=== PATIENT | male | born 1960 | race American Indian/Alaskan Native ===

== ENCOUNTER 2016-11-07 18:41 | Emergency (ER) | payer SELFPAY ==
[2016-11-07 19:08] VITALS: BP 149/86
[2016-11-07 20:03] LABS: Basophils % (Auto) 0.6 % (0.0-1.8); Eosinophils % (Auto) 1.5 % (0.0-4.3); Hematocrit 42.5 % (35.5-45.6); Hemoglobin 13.9 gm/dl (11.8-15.2); Mean Corpuscular HGB Conc 33 % (32-34); Mean Corpuscular Hemoglobin 28 pg (28-32); Mean Corpuscular Volume 85 fl (84-94); Platelet Count 230 K/mm3 (140-440); Red Blood Count 5.02 M/mm3 (3.65-5.03); Red Cell Distribution Width 14.5 % (13.2-15.2); White Blood Count 7.7 K/mm3 (4.5-11.0)
[2016-11-07 20:04] LABS: Anion Gap 18 mmol/L; Blood Urea Nitrogen 22 mg/dL (9-20); Calcium 9.4 mg/dL (8.4-10.2); Carbon Dioxide 26 mmol/L (22-30); Chloride 101.8 mmol/L (98-107); Glucose 121 mg/dL (75-100); Potassium 3.4 mmol/L (3.6-5.0); Sodium 142 mmol/L (137-145)
--- NOTE | 2016-11-08 08:37 | XRay Report ---
Chest 2 views. Findings: The heart and lungs reveal no acute or significant abnormalities.
== END 2016-11-08 01:25 | disposition left against medical advice (07) ==
LOC: ED 18:41
DX: R07.89 Other chest pain (principal); R53.1 Weakness; Z53.21 Procedure and treatment not carried out due to patient leaving prior to being seen by health care provider
CPT/HCPCS: 36415; 71020; 80048; 84484; 85025; 93005; 93010

== ENCOUNTER 2017-02-18 07:13 | Emergency (ER) | payer OTHER ==
[2017-02-18] MEDS ORDERED: NORMODYNE IV ONE (08:06)
[2017-02-18] MEDS ORDERED: NITRO-BID 2% TP ONE (08:06)
--- NOTE | 2017-02-18 08:06 | Emergency Department Report ---
ED General Adult HPI - General Chief complaint: Chest Pain Stated complaint: SOB Time Seen by Provider: 02/18/17 08:02 Source: patient Mode of arrival: Ambulatory Limitations: No Limitations - History of Present Illness Initial comments: Patient arrived at triage stating that he was having substernal chest pain or shortness of breath for the last 3 days. He states that about 45 minutes prior to arrival he felt like he was having a heart attack per the triage note. The note states that there was nausea and sweating. The patient denies any sweating. He states that the pain lasted for less than 45 minutes. On arrival the patient's blood pressure was 190/130. At the time of my encounter it was about 160/100 and had not yet been treated. Patient denies any substance abuse. In 2014 the patient was admitted to facility under similar circumstances. He had a nuclear perfusion test at that time which showed a dilated cardiomyopathy. Patient admits to noncompliance with his blood pressure medication and follow-up. He states he was admitted here a year ago but perhaps that was actually another hospital. He admits to being somewhat recurrently noncompliant. -: days(s) Location: chest Radiation: non-radiation Quality: dull Consistency: now resolved Improves with: none Worsens with: none Associated Symptoms: shortness of breath Treatments Prior to Arrival: none - Related Data Previous Rx's Medication Instructions Recorded Last Taken Type Labetalol [Normodyne TAB] 100 mg PO BID #60 tablet 02/18/17 Unknown Rx Lisinopril/Hydrochlorothiazide 1 tab PO QDAY #30 tablet 02/18/17 Unknown Rx [Zestoretic 10-12.5 mg] Allergies Allergy/AdvReac Type Severity Reaction Status Date / Time No Known Allergies Allergy Verified 11/23/14 16:49 ED Review of Systems ROS: Stated complaint: SOB Other details as noted in HPI Constitutional: denies: chills, fever Eyes: denies: eye pain, eye discharge, vision change ENT: denies: ear pain, throat pain Respiratory: SOB with exertion. denies: cough, orthopnea, shortness of breath, SOB at rest, wheezing Cardiovascular: as per HPI, chest pain. denies: palpitations Endocrine: no symptoms reported Gastrointestinal: denies: abdominal pain, nausea, diarrhea Genitourinary: denies: urgency, dysuria Musculoskeletal: denies: back pain, joint swelling, arthralgia Skin: denies: rash, lesions Neurological: denies: headache, weakness, paresthesias Psychiatric: denies: anxiety, depression Hematological/Lymphatic: denies: easy bleeding, easy bruising ED Past Medical Hx - Past Medical History Hx Hypertension: Yes Hx Heart Attack/AMI: Yes Hx Congestive Heart Failure: No Hx Diabetes: No Hx GERD: Yes Hx Asthma: Yes Hx COPD: No - Surgical History Hx Coronary Stent: Yes - Social History Smoking Status: Never Smoker Substance Use Type: None, Alcohol - Medications Home Medications: Home Medications Medication Instructions Recorded Confirmed Last Taken Type Labetalol [Normodyne TAB] 100 mg PO BID #60 tablet 02/18/17 Unknown Rx Lisinopril/Hydrochlorothiazide 1 tab PO QDAY #30 tablet 02/18/17 Unknown Rx [Zestoretic 10-12.5 mg] ED Physical Exam - General Limitations: No Limitations General appearance: alert, in no apparent distress - Head Head exam: Present: atraumatic, normocephalic - Eye Eye exam: Present: normal appearance. Absent: scleral icterus - ENT ENT exam: Present: mucous membranes moist - Neck Neck exam: Present: normal inspection - Respiratory Respiratory exam: Present: normal lung sounds bilaterally. Absent: respiratory distress - Cardiovascular Cardiovascular Exam: Present: regular rate, normal rhythm. Absent: systolic murmur, diastolic murmur, rubs, gallop - GI/Abdominal GI/Abdominal exam: Present: soft, normal bowel sounds. Absent: distended, tenderness, guarding, rebound, rigid - Rectal Rectal exam: Present: deferred - Extremities Exam Extremities exam: Present: normal inspection - Back Exam Back exam: Present: normal inspection - Neurological Exam Neurological exam: Present: alert, oriented X3, CN II-XII intact. Absent: motor sensory deficit - Psychiatric Psychiatric exam: Present: normal affect, normal mood - Skin Skin exam: Present: warm, dry, intact, normal color. Absent: rash ED Course Vital Signs 02/18/17 02/18/17 02/18/17 07:25 09:03 09:04 Temperature 98.1 F Pulse Rate 86 77 Respiratory 22 16 Rate Blood Pressure 191/131 167/108 Blood Pressure 167/108 [Left] O2 Sat by Pulse 97 99 Oximetry 02/18/17 09:06 Temperature Pulse Rate Respiratory 16 Rate Blood Pressure Blood Pressure [Left] O2 Sat by Pulse 99 Oximetry - Reevaluation(s) Reevaluation #1: I questioned the patient about the possibility of cocaine abuse. He continues to deny this. I informed of the has an elevated CK level which may be associated with cocaine use. He stated this was not the case. I went over his history as he stated with him as he somewhat minimized stated to me. I told him that certainly we would admit him to the hospital if he felt like he was having a heart attack. He stated that he just needs medicine for his hypertension and he has no persistent chest pain. I explained to him that he would have to sign out AGAINST MEDICAL ADVICE as there could be risk of and hospitalization was indicated for further care and stabilization. He is mentally competent to decline. He did understand the risks of discharge and benefits of hospitalization. 02/18/17 10:04 02/18/17 10:07 I encouraged the patient to await for a second troponin. We will see if he will do so. ED Medical Decision Making - Lab Data Result diagrams: 02/18/17 08:01 02/18/17 08:01 Laboratory Results - last 24 hr 02/18/17 02/18/17 02/18/17 08:01 08:01 08:01 WBC 6.0 RBC 4.85 Hgb 13.6 Hct 41.7 MCV 86 MCH 28 MCHC 33 RDW 15.0 Plt Count 200 Lymph % (Auto) 31.4 [place] % (Auto) 8.6 H Eos % (Auto) 1.3 Baso % (Auto) 0.8 Lymph # 1.9 [place] # 0.5 Eos # 0.1 Baso # 0.1 Seg Neutrophils % 57.9 Seg Neutrophils # 3.5 Sodium 146 H Potassium 4.2 Chloride 106.6 Carbon Dioxide 27 Anion Gap 17 BUN 14 Creatinine 1.2 Estimated GFR > 60 BUN/Creatinine Ratio 11.66 Glucose 104 H Calcium 9.2 Total Creatine Kinase 723 H CK-MB (CK-2) 6.3 H CK-MB (CK-2) Rel Index 0.8 Troponin T 0.027 - EKG Data -: EKG Interpreted by Me EKG shows normal: sinus rhythm, intervals - EKG Data Interpretation: LVH, other (left axis deviation and left atrial abnormality associated strain pattern EKG highly consistent with LVH no evidence of acute ischemia.) - Radiology Data interpreted by me: Chest x-ray suggested the possibility of early CHF Critical care attestation.: If time is entered above; I have spent that time in minutes in the direct care of this critically ill patient, excluding procedure time. ED Disposition Clinical Impression: Uncontrolled hypertension HTN (hypertension) Qualifiers: Hypertension type: essential hypertension Qualified Code(s): I10 - Essential ( primary) hypertension Rhabdomyolysis Qualifiers: Rhabdomyolysis type: non-traumatic Qualified Code(s): M62.82 - Rhabdomyolysis Disposition: LEFT AGAINST MED ADVICE Is pt being admited?: No Does the pt Need Aspirin: No Condition: Stable Instructions: Hypertension (ED), Chest Pain (ED) Additional Instructions: Return as desired for further care and evaluation. I strongly recommended he see a primary care doctor as soon as possible/investment analyst. Given the appropriate referrals. Rx as directed. Blood pressure management requires follow-up in your case within the next few days. You should check your blood pressure at a supermarket or a pharmacy daily. Prescriptions: Labetalol [Normodyne TAB] 100 mg PO BID #60 tablet Lisinopril/Hydrochlorothiazide [Zestoretic 10-12.5 mg] 1 tab PO QDAY #30 tablet Referrals: PRIMARY CAREMD [Primary Care Provider] - 3-5 Days FRANCES DAILY MD [Staff Physician] - 3-5 Days ANNETTE MAY MD [Staff Physician] - 3-5 Days [facility] [Provider Group] - 3-5 Days Forms: AMA Form Time of Disposition: 11:31
[2017-02-18 08:14] LABS: Basophils % (Auto) 0.8 % (0.0-1.8); Eosinophils % (Auto) 1.3 % (0.0-4.3); Hematocrit 41.7 % (35.5-45.6); Hemoglobin 13.6 gm/dl (11.8-15.2); Mean Corpuscular HGB Conc 33 % (32-34); Mean Corpuscular Hemoglobin 28 pg (28-32); Mean Corpuscular Volume 86 fl (84-94); Platelet Count 200 K/mm3 (140-440); Red Blood Count 4.85 M/mm3 (3.65-5.03)
[2017-02-18 08:29] LABS: Anion Gap 17 mmol/L; BUN/Creatinine Ratio 11.66; Blood Urea Nitrogen 14 mg/dL (9-20); Calcium 9.2 mg/dL (8.4-10.2); Carbon Dioxide 27 mmol/L (22-30); Chloride 106.6 mmol/L (98-107); Creatine Kinase MB 6.3 ng/mL (0.0-4.0); Glucose 104 mg/dL (75-100); Potassium 4.2 mmol/L (3.6-5.0); Sodium 146 mmol/L (137-145)
[2017-02-18 10:08] LABS: Urine Drugs of Abuse Note Disclamer
--- NOTE | 2017-02-18 10:37 | XRay Report ---
FINAL REPORT EXAM: XR CHEST 1V AP HISTORY: Chest Pain TECHNIQUE: Chest, portable semi upright PRIORS: None. FINDINGS: There is borderline cardiomegaly. There is no congestion, infiltrate or pleural effusion seen. There is no pneumothorax. IMPRESSION: There is no acute abnormality identified.
[2017-02-18 11:47] VITALS: BP 156/99
== END 2017-02-18 11:46 | disposition left against medical advice (07) ==
LOC: ED 07:13
DX: I10 Essential (primary) hypertension (principal); M62.82 Rhabdomyolysis; I25.2 Old myocardial infarction; J45.909 Unspecified asthma, uncomplicated; Z95.818 Presence of other cardiac implants and grafts
CPT/HCPCS: 36415; 71010; 80048; 80307; 82550; 82553; 84484; 85025; 93005; 93010

== ENCOUNTER 2018-11-12 00:19 | Emergency (ER) | payer SELFPAY ==
[2018-11-12] MEDS ORDERED: DUONEB *Not for PRN Use IH ONE (00:25)
[2018-11-12] MEDS ORDERED: PROVENTIL IH ONE (00:39)
[2018-11-12] MEDS ORDERED: ATROVENT IH ONE (00:39)
[2018-11-12] MEDS ORDERED: DELTASONE PO ONE (00:39)
[2018-11-12] MEDS ORDERED: TESSALON PERLES PO ONE (00:40)
--- NOTE | 2018-11-12 00:45 | Emergency Department Report ---
- General Chief Complaint: Dyspnea/Respdistress Stated Complaint: JALIL/COUGH Time Seen by Provider: 11/12/18 00:36 Source: patient Mode of arrival: Ambulatory Limitations: No Limitations - History of Present Illness MD Complaint: cough -: days(s) (1) Severity: severe Severity scale (0 -10): 3 Consistency: constant Improves With: nothing Worsens With: nothing Associated Symptoms: cough (dry), shortness of breath. denies: fever, chills, diaphoresis, headache, nasal congestion, stiff neck, chest pain, abdominal pain, nausea, vomiting, diarrhea, confusion, right sweats, weight loss, epistaxis - Related Data Home Medications Medication Instructions Recorded Confirmed Last Taken Furosemide [Lasix] 20 mg PO DAILY 11/12/18 11/12/18 11/12/18 Previous Rx's Medication Instructions Recorded Last Taken Type ALBUTEROL Inhaler(NF) [VENTOLIN 1 puff IH Q4HRT PRN #1 inha 11/12/18 Unknown Rx Inhaler(NF)] Benzonatate [Tessalon Perles] 100 mg PO Q8HR #10 capsule 11/12/18 Unknown Rx guaiFENesin/CODEINE [Robitussin AC] 5 ml PO Q6HR PRN #100 oral.liqd 11/12/18 Unknown Rx predniSONE [Deltasone] 20 mg PO QDAY #5 tab 11/12/18 Unknown Rx Allergies Allergy/AdvReac Type Severity Reaction Status Date / Time No Known Allergies Allergy Verified 11/23/14 16:49 ED Review of Systems ROS: Stated complaint: JALIL/COUGH Other details as noted in HPI Comment: All other systems reviewed and negative ED Past Medical Hx - Past Medical History Previous Medical History?: Yes Hx Hypertension: Yes Hx Heart Attack/AMI: Yes Hx Congestive Heart Failure: No Hx Diabetes: No Hx GERD: Yes Hx Asthma: Yes Hx COPD: No - Surgical History Past Surgical History?: No Hx Coronary Stent: Yes - Social History Smoking Status: Never Smoker Substance Use Type: None - Medications Home Medications: Home Medications Medication Instructions Recorded Confirmed Last Taken Type ALBUTEROL Inhaler(NF) [VENTOLIN 1 puff IH Q4HRT PRN #1 inha 11/12/18 Unknown Rx Inhaler(NF)] Benzonatate [Tessalon Perles] 100 mg PO Q8HR #10 capsule 11/12/18 Unknown Rx Furosemide [Lasix] 20 mg PO DAILY 11/12/18 11/12/18 11/12/18 History guaiFENesin/CODEINE [Robitussin AC] 5 ml PO Q6HR PRN #100 oral.liqd 11/12/18 Unknown Rx predniSONE [Deltasone] 20 mg PO QDAY #5 tab 11/12/18 Unknown Rx ED Physical Exam - General Limitations: No Limitations General appearance: alert, in no apparent distress - Head Head exam: Present: atraumatic, normocephalic - Eye Eye exam: Present: normal appearance - ENT ENT exam: Present: mucous membranes moist - Neck Neck exam: Present: normal inspection - Respiratory Respiratory exam: Present: normal lung sounds bilaterally, wheezes (mild and at the very end of his expiratory phase. ). Absent: respiratory distress, rales, rhonchi, stridor, accessory muscle use - Cardiovascular Cardiovascular Exam: Present: regular rate, normal rhythm, normal heart sounds. Absent: systolic murmur, diastolic murmur, rubs, gallop - GI/Abdominal GI/Abdominal exam: Present: soft, normal bowel sounds. Absent: distended, tenderness, guarding, rebound, rigid - Rectal Rectal exam: Present: deferred - Extremities Exam Extremities exam: Present: normal inspection - Back Exam Back exam: Present: normal inspection - Neurological Exam Neurological exam: Present: alert, oriented X3 - Psychiatric Psychiatric exam: Present: normal affect, normal mood - Skin Skin exam: Present: warm, dry, intact, normal color. Absent: rash ED Course Vital Signs 11/12/18 11/12/18 00:26 00:39 Pulse Rate 106 H Respiratory 22 Rate Blood Pressure 204/128 164/107 [Right] O2 Sat by Pulse 96 Oximetry ED Medical Decision Making - Radiology Data [facility] [address] [place] [address] XRay Report Signed Patient: ANA PAULA MATT MR#: [id number] 09 : 1960 Acct:[id number] Age/Sex: 58 / M ADM Date: 11/12/18 Loc: ED Attending Dr: Ordering Physician: ALEXA ALMEIDA MD Date of Service: 11/12/18 Procedure(s): XR chest 1V ap Accession Number(s): [id number] cc: ALEXA ALMEIDA MD Fluoro Time In Minutes: PROCEDURE: XR CHEST 1V AP TECHNIQUE: Chest radiograph single view. HISTORY: cough COMPARISONS: None . FINDINGS: Heart: The heart size is slightly pronounced. Mediastinum/Vessels: Normal. Lungs/Pleural space: Normal. Bony thorax: No acute osseous abnormality. Life support devices: None. IMPRESSION: Mild cardiomegaly. There is no evidence of consolidation, effusion or pneumothorax. This document is electronically signed by Charleen Almeida DO., November 12 2018 01:02:45 AM ET Transcribed By: [facility] Dictated By: CHARLEEN ALMEIDA MD Electronically Authenticated By: CHARLEEN ALMEIDA MD Signed Date/Time: 11/12/18103 DD/ TD/TT: 11/12/1852 - Medical Decision Making Patient received a neb treatment and his cough did improve some. Patient's wheeze has resolved. The patient likely with a viral bronchitis however cannot rule out NILO inhibitor induced cough. Patient is switched to Norvasc. Patient also to be given meds for symptomatic relief for his cough. Patient discharged home. Critical care attestation.: If time is entered above; I have spent that time in minutes in the direct care of this critically ill patient, excluding procedure time. ED Disposition Clinical Impression: Acute bronchitis Disposition: DC-01 TO HOME OR SELFCARE Is pt being admited?: No Does the pt Need Aspirin: No Condition: Stable Instructions: Acute Bronchitis (ED) Time of Disposition: 02:48
--- NOTE | 2018-11-12 01:04 | XRay Report ---
PROCEDURE: XR CHEST 1V AP TECHNIQUE: Chest radiograph single view. HISTORY: cough COMPARISONS: None . FINDINGS: Heart: The heart size is slightly pronounced. Mediastinum/Vessels: Normal. Lungs/Pleural space: Normal. Bony thorax: No acute osseous abnormality. Life support devices: None. IMPRESSION: Mild cardiomegaly. There is no evidence of consolidation, effusion or pneumothorax. This document is electronically signed by Charleen Almeida DO., November 12 2018 01:02:45 AM ET
[2018-11-12 02:53] VITALS: BP 152/93
== END 2018-11-12 03:06 | disposition home or self-care (01) ==
LOC: ED 00:19
DX: J20.9 Acute bronchitis, unspecified (principal); I10 Essential (primary) hypertension; I25.2 Old myocardial infarction; K21.9 Gastro-esophageal reflux disease without esophagitis; J45.909 Unspecified asthma, uncomplicated; Z95.1 Presence of aortocoronary bypass graft
CPT/HCPCS: 71045; 94644; 99283; J7512

== ENCOUNTER 2018-12-01 09:04 | Inpatient (IN) | payer SELFPAY ==
--- NOTE | 2018-12-01 10:03 | Emergency Department Report ---
ED General Adult HPI - General Chief complaint: GI Bleed Stated complaint: ASTHMA/LOWER STOMACH PAIN/BLOOD IN STOOL Time Seen by Provider: 12/01/18 09:34 Source: patient Mode of arrival: Ambulatory Limitations: No Limitations - History of Present Illness Initial comments: Patient is 58 years old male with history of hypertension, noncompliant with his medication, history of congestive heart failure and asthma. Patient presented to the ER with multiple complaints. Patient stated that he's been having shortness of breath since yesterday, stating that he thinks his asthma is acting up. Patient also complaining of left lower quadrant abdominal pain associated with blood in his stool one time. Patient denied any fever or chills. No nausea or vomiting. Patient denied any dizziness, weakness numbness or tingling sensation. Patient is not on any blood thinner medicine. Severity scale (0 -10): 7 - Related Data Home Medications Medication Instructions Recorded Confirmed Last Taken Furosemide [Lasix] 20 mg PO DAILY 11/12/18 11/12/18 11/12/18 Previous Rx's Medication Instructions Recorded Last Taken Type ALBUTEROL Inhaler(NF) [VENTOLIN 1 puff IH Q4HRT PRN #1 inha 11/12/18 Unknown Rx Inhaler(NF)] Amlodipine Besylate [Norvasc] 10 mg PO DAILY #30 tablet 11/12/18 Unknown Rx Benzonatate [Tessalon Perles] 100 mg PO Q8HR #10 capsule 11/12/18 Unknown Rx guaiFENesin/CODEINE [Robitussin AC] 5 ml PO Q6HR PRN #100 oral.liqd 11/12/18 Unknown Rx predniSONE [Deltasone] 20 mg PO QDAY #5 tab 11/12/18 Unknown Rx Allergies Allergy/AdvReac Type Severity Reaction Status Date / Time No Known Allergies Allergy Verified 12/01/18 09:06 ED Review of Systems ROS: Stated complaint: ASTHMA/LOWER STOMACH PAIN/BLOOD IN STOOL Other details as noted in HPI Comment: All other systems reviewed and negative Constitutional: denies: chills, fever Respiratory: shortness of breath. denies: cough, orthopnea, SOB with exertion, SOB at rest, wheezing Cardiovascular: dyspnea on exertion, orthopnea. denies: chest pain, palpitations Gastrointestinal: abdominal pain, hematochezia. denies: nausea, vomiting, diarrhea, constipation, hematemesis, melena Genitourinary: denies: hematuria Musculoskeletal: denies: back pain Neurological: denies: headache, weakness, numbness, paresthesias, confusion, abnormal gait ED Past Medical Hx - Past Medical History Hx Hypertension: Yes Hx Heart Attack/AMI: Yes Hx Congestive Heart Failure: No Hx Diabetes: No Hx GERD: Yes Hx Asthma: Yes Hx COPD: No - Surgical History Hx Coronary Stent: Yes - Social History Smoking Status: Never Smoker Substance Use Type: None - Medications Home Medications: Home Medications Medication Instructions Recorded Confirmed Last Taken Type ALBUTEROL Inhaler(NF) [VENTOLIN 1 puff IH Q4HRT PRN #1 inha 11/12/18 Unknown Rx Inhaler(NF)] Amlodipine Besylate [Norvasc] 10 mg PO DAILY #30 tablet 11/12/18 Unknown Rx Benzonatate [Tessalon Perles] 100 mg PO Q8HR #10 capsule 11/12/18 Unknown Rx Furosemide [Lasix] 20 mg PO DAILY 11/12/18 11/12/18 11/12/18 History guaiFENesin/CODEINE [Robitussin AC] 5 ml PO Q6HR PRN #100 oral.liqd 11/12/18 Unknown Rx predniSONE [Deltasone] 20 mg PO QDAY #5 tab 11/12/18 Unknown Rx ED Physical Exam - General Limitations: No Limitations General appearance: alert, in no apparent distress - Head Head exam: Present: atraumatic, normocephalic, normal inspection - Eye Eye exam: Present: normal appearance, PERRL - ENT ENT exam: Present: normal exam, normal orophraynx, mucous membranes moist - Neck Neck exam: Present: normal inspection, full ROM. Absent: tenderness, meningismus, lymphadenopathy, thyromegaly - Respiratory Respiratory exam: Present: normal lung sounds bilaterally - Cardiovascular Cardiovascular Exam: Present: regular rate, normal rhythm, normal heart sounds - GI/Abdominal GI/Abdominal exam: Present: soft, tenderness (left lower quadrant), normal bowel sounds. Absent: distended, guarding, rebound, rigid, organomegaly, mass, bruit, pulsatile mass, hernia - Extremities Exam Extremities exam: Present: normal inspection, full ROM, normal capillary refill - Back Exam Back exam: Present: normal inspection, full ROM. Absent: tenderness, CVA tenderness (R), CVA tenderness (L), muscle spasm, paraspinal tenderness, vertebral tenderness - Neurological Exam Neurological exam: Present: alert, oriented X3, CN II-XII intact, normal gait, reflexes normal - Skin Skin exam: Present: warm, intact, normal color ED Course Vital Signs 12/01/18 12/01/18 12/01/18 09:10 10:00 10:11 Temperature 98.6 F Pulse Rate 101 H 89 89 Pulse Rate [ Anterior Bilateral Throughout] Respiratory 16 27 H 25 H Rate Respiratory Rate [Anterior Bilateral Throughout] Blood Pressure 189/123 Blood Pressure 173/113 [Left] O2 Sat by Pulse 98 97 97 Oximetry 12/01/18 12/01/18 12/01/18 10:19 11:19 11:38 Temperature Pulse Rate Pulse Rate [ 92 H 98 H Anterior Bilateral Throughout] Respiratory 22 Rate Respiratory 18 20 Rate [Anterior Bilateral Throughout] Blood Pressure Blood Pressure [Left] O2 Sat by Pulse 97 Oximetry - Consultations Consultation #1: 12/01/18 15:01 I discussed the patient is Dr. Yu from cardiology. Dr. Yu stated that he will follow-up with the patient in the hospital. 12/01/18 15:43 ED Medical Decision Making - Lab Data Result diagrams: 12/01/18 09:45 12/01/18 09:45 - EKG Data -: EKG Interpreted by [facility] EKG shows normal: sinus rhythm Rate: normal - EKG Data Interpretation: no acute changes - Radiology Data Radiology results: report reviewed Referring Physician: GELY DOUGHERTY Patient Name: ANA PAULA MATT Date of : 1960 Sex: Male Report Date: 2018-12-01 Report Status: Finalized Findings [facility] [address] [place] [address] Cat Scan Report Signed Patient: ANA PAULA MATT MR#: [id number] 09 : 1960 Acct:[id number] Age/Sex: 58 / M ADM Date: 12/01/18 Loc: ED Attending Dr: Ordering Physician: GELY DOUGHERTY Date of Service: 12/01/18 Procedure(s): CT abdomen pelvis w con Accession Number(s): [id number] cc: GELY DOUGHERTY PROCEDURE: CT ABDOMEN PELVIS W CON TECHNIQUE: Computerized axial tomography of the abdomen and pelvis was performed after the IV injection of iodinated nonionic contrast. CT DOSE LENGTH PRODUCT: 3577.5 mGycm HISTORY: abdominal pain COMPARISONS: None . FINDINGS: Visualized lower thorax: Prominent heart size. Liver: There is an ill-defined low-density lesion in the left hepatic lobe, measuring up to 3.5 cm. There is another low-density lesion in the peripheral right lobe which measures up to 5.5 cm. These are not cystic in density and are indeterminate in etiology. Spleen: Normal size and attenuation. Gallbladder and biliary system: Gallbladder is present. Pancreas: Normal. Adrenals: Normal. Kidneys: Bilateral renal cysts. Largest is in the left kidney and measures up to 5.7 cm. No hydronephrosis bilaterally. GI tract: Appendix is visualized and does not appear inflamed. No bowel obstruction or inflammation . Lymph nodes and mesentery: Normal. Vasculature: Normal.. Bladder: Normal. Reproductive organs: Prostate calcifications. Peritoneum: No free fluid. Musculoskeletal structures: No significant abnormality. Other: None . IMPRESSION: 2 low density lesions are seen in the liver which are indeterminate in etiology. These are not consistent with simple cysts. Recommend further evaluation. No acute inflammatory process is seen . This document is electronically signed by Catia Seals MD., December 01 2018 02:25:49 PM ET Transcribed By: [facility] Dictated By: CATIA SEALS M.D. Electronically Authenticated By: CATIA SEALS M.D. Signed Date/Time: 12/01/18 1427 DD/ 1229 TD/TT: 12/01/18 1229 - Medical Decision Making Patient is 58 years old male with history of hypertension, noncompliant with his medication, history of congestive heart failure and asthma. Patient presented to the ER with multiple complaints. Patient stated that he's been having shortness of breath since yesterday, stating that he thinks his asthma is acting up. Patient also complaining of left lower quadrant abdominal pain associated with blood in his stool one time. Patient denied any fever or chills. No nausea or vomiting. Patient denied any dizziness, weakness numbness or tingling sensation. Patient is not on any blood thinner medicine. Patient found to be in a acute CHF exacerbation. Patient received Lasix, stated that his symptoms better. Discussed the patient is Dr. Daniels, he agreed to admit the patient to medical service. Critical Care Time: Yes Critical care time in (mins) excluding proc time.: 30 Critical care attestation.: If time is entered above; I have spent that time in minutes in the direct care of this critically ill patient, excluding procedure time. ED Disposition Clinical Impression: Accelerated hypertension, Abdominal pain, CHF exacerbation, Elevated troponin Disposition: 09 OP ADMIT IP TO THIS HOSP Is pt being admited?: Yes Condition: Stable Instructions: Hypertension (ED) Referrals: BRIAN YORK MD [Primary Care Provider] - 3-5 Days Forms: Accompanied Note
[2018-12-01 10:13] LABS: Basophils % (Auto) 0.3 % (0.0-1.8); Eosinophils % (Auto) 0.1 % (0.0-4.3); Hematocrit 42.4 % (35.5-45.6); Lymphocytes # (Auto) 1.9 K/mm3 (1.2-5.4); Lymphocytes % (Auto) 16.4 % (13.4-35.0); Mean Corpuscular HGB Conc 33 % (32-34); Mean Corpuscular Volume 88 fl (84-94); Monocytes # (Auto) 0.8 K/mm3 (0.0-0.8); Platelet Count 252 K/mm3 (140-440); Red Blood Count 4.84 M/mm3 (3.65-5.03); Red Cell Distribution Width 15.9 % (13.2-15.2)
--- NOTE | 2018-12-01 10:30 | XRay Report ---
PROCEDURE: XR CHEST 1V AP TECHNIQUE: Single view chest HISTORY: SOB COMPARISONS: Chest x-ray November 12, 2018 FINDINGS: Trachea midline. Mild atherosclerotic change aorta; stable. Cardiomegaly; stable. No pneumothorax. No sizable effusion. No acute airspace disease. No acute bony abnormality. IMPRESSION: Stable cardiomegaly. No acute pulmonary disease.. This document is electronically signed by Adelso Stacy MD., December 01 2018 10:28:13 AM ET
[2018-12-01 10:31] LABS: INR 0.95 (0.87-1.13)
[2018-12-01 10:32] LABS: Partial Thromboplastin Time 25.7 Sec. (24.2-36.6)
[2018-12-01 10:35] LABS: Alanine Aminotransferase 71 units/L (7-56); Albumin 3.7 g/dL (3.9-5); BUN/Creatinine Ratio 17; Blood Urea Nitrogen 20 mg/dL (9-20); Calcium 9.1 mg/dL (8.4-10.2); Hemolysis Index 3
[2018-12-01 10:37] LABS: Bilirubin,Direct < 0.2 mg/dL (0-0.2)
[2018-12-01 10:44] LABS: Bilirubin,Urine NEG (Negative); Blood,Urine NEG (Negative); Color,Urine Yellow (Yellow); Mucus,Urine FEW /HPF; Protein,Urine <15 mg/dL mg/dL (Negative); Urobilinogen,Urine < 2.0 mg/dL (<2.0)
[2018-12-01] MEDS ORDERED: APRESOLINE ONE (10:49)
[2018-12-01] MEDS ORDERED: ZOFRAN ONE (10:49)
[2018-12-01] MEDS ORDERED: MORPHINE ONE (10:49)
[2018-12-01] MEDS ORDERED: ZOFRAN IV ONE (10:53)
[2018-12-01] MEDS ORDERED: MORPHINE IV ONE (10:53)
[2018-12-01] MEDS ORDERED: APRESOLINE IV ONE (10:53)
[2018-12-01] MEDS ORDERED: ATROVENT IH ONE (11:01)
[2018-12-01] MEDS ORDERED: PROVENTIL IH ONE (11:01)
[2018-12-01 11:24] LABS: Chol/HDL Ratio 3.46 %
[2018-12-01] MEDS ORDERED: LASIX IV ONE (11:47)
--- NOTE | 2018-12-01 14:27 | Cat Scan Report ---
PROCEDURE: CT ABDOMEN PELVIS W CON TECHNIQUE: Computerized axial tomography of the abdomen and pelvis was performed after the IV inject ion of iodinated nonionic contrast. CT DOSE LENGTH PRODUCT: 3577.5 mGycm HISTORY: abdominal pain COMPARISONS: None . FINDINGS: Visualized lower thorax: Prominent heart size. Liver: There is an ill-defined low-density lesion in the left hepatic lobe, measuring up to 3.5 cm. T here is another low-density lesion in the peripheral right lobe which measures up to 5.5 cm. These ar e not cystic in density and are indeterminate in etiology. Spleen: Normal size and attenuation. Gallbladder and biliary system: Gallbladder is present. Pancreas: Normal. Adrenals: Normal. Kidneys: Bilateral renal cysts. Largest is in the left kidney and measures up to 5.7 cm. No hydroneph rosis bilaterally. GI tract: Appendix is visualized and does not appear inflamed. No bowel obstruction or inflammation . Lymph nodes and mesentery: Normal. Vasculature: Normal.. Bladder: Normal. Reproductive organs: Prostate calcifications. Peritoneum: No free fluid. Musculoskeletal structures: No significant abnormality. Other: None . IMPRESSION: 2 low density lesions are seen in the liver which are indeterminate in etiology. These are not consis tent with simple cysts. Recommend further evaluation. No acute inflammatory process is seen . This document is electronically signed by Catia Seals MD., December 01 2018 02:25:49 PM ET
[2018-12-01] MEDS ORDERED: BABY ASPIRIN PO ONE (14:48)
[2018-12-01] MEDS ORDERED: DILAUDID IV PRN (16:13)
[2018-12-01] MEDS ORDERED: ZOFRAN IV PRN (16:13)
[2018-12-01] MEDS ORDERED: REGLAN IV PRN (16:13)
[2018-12-01] MEDS ORDERED: PERCOCET 5/325 PO PRN (16:13)
[2018-12-01] MEDS ORDERED: TYLENOL PO PRN (16:13)
[2018-12-01] MEDS ORDERED: PROAIR IH PRN (16:14)
[2018-12-01] MEDS ORDERED: BABY ASPIRIN ONE (16:31)
[2018-12-01] MEDS: K-DUR PO SCH (16:37)
[2018-12-01] MEDS: COZAAR PO SCH (16:37)
[2018-12-01] MEDS: NORVASC PO SCH (16:37)
[2018-12-01] MEDS ORDERED: PROVENTIL IH PRN (17:06)
[2018-12-01] MEDS: LASIX IV SCH (17:53)
[2018-12-01] MEDS: PEPCID PO SCH (21:28)
[2018-12-01] MEDS: SODIUM CHLORIDE FLUSH SYRINGE 10 ML IV SCH (21:28)
--- NOTE | 2018-12-01 23:14 | History and Physical Report ---
History of Present Illness Date of examination: 12/01/18 Date of admission: 12/01/18 15:05 Chief complaint: SOB since yesterday History of present illness: Patient is 58 years old male with history of hypertension, noncompliant with his medication, history of congestive heart failure and asthma presented to the ER with multiple complaints including shortness of breath since yesterday. Patient also complaining of left lower quadrant abdominal pain associated with blood in his stool one time. Patient denied any fever or chills. No nausea or vomiting. Patient denied any dizziness, weakness numbness or tingling sensation. Patient is not on any blood thinner medicine.Not taking Furosemide . Past Medical History Hx Hypertension: Yes Hx Heart Attack/AMI: Yes Hx GERD: Yes Hx Asthma: Yes Surgical History Hx Coronary Stent: Yes Social History Smoking Status: Never Smoker Substance Use Type: None - Medications Home Medications: Home Medications Medication Instructions Recorded Confirmed Last Taken Type ALBUTEROL Inhaler(NF) [VENTOLIN 1 puff IH Q4HRT PRN #1 inha 11/12/18 Unknown Rx Inhaler(NF)] Amlodipine Besylate [Norvasc] 10 mg PO DAILY #30 tablet 11/12/18 Unknown Rx Benzonatate [Tessalon Perles] 100 mg PO Q8HR #10 capsule 11/12/18 Unknown Rx Furosemide [Lasix] 20 mg PO DAILY 11/12/18 11/12/18 11/12/18 History guaiFENesin/CODEINE [Robitussin AC] 5 ml PO Q6HR PRN #100 oral.liqd 11/12/18 Unknown Rx predniSONE [Deltasone] 20 mg PO QDAY #5 tab 11/12/18 Unknown Rx Review of Systems ROS: Stated complaint: ASTHMA/LOWER STOMACH PAIN/BLOOD IN STOOL Other details as noted in HPI Comment: All other systems reviewed and negative Constitutional: denies: chills, fever Respiratory: shortness of breath. denies: cough, orthopnea, SOB with exertion, SOB at rest, wheezing Cardiovascular: dyspnea on exertion, orthopnea. denies: chest pain, palpitations Gastrointestinal: abdominal pain, hematochezia. denies: nausea, vomiting, diarrhea, constipation, hematemesis, melena Genitourinary: denies: hematuria Musculoskeletal: denies: back pain Neurological: denies: headache, weakness, numbness, paresthesias, confusion, abnormal gait Medications and Allergies Allergies Allergy/AdvReac Type Severity Reaction Status Date / Time No Known Allergies Allergy Verified 12/01/18 09:06 Home Medications Medication Instructions Recorded Confirmed Last Taken Type ALBUTEROL Inhaler(NF) [VENTOLIN 1 puff IH Q4HRT PRN #1 inha 11/12/18 12/01/18 Un known Rx Inhaler(NF)] Amlodipine Besylate [Norvasc] 10 mg PO DAILY #30 tablet 11/12/18 12/01/18 Unknown Rx Benzonatate [Tessalon Perles] 100 mg PO Q8HR #10 capsule 11/12/18 12/01/18 Unknown Rx Furosemide [Lasix] 20 mg PO DAILY 11/12/18 12/01/18 11/12/18 History guaiFENesin/CODEINE [Robitussin AC] 5 ml PO Q6HR PRN #100 oral.liqd 11/12/18 12/01/18 Unknown Rx predniSONE [Deltasone] 20 mg PO QDAY #5 tab 11/12/18 12/01/18 Unknown Rx Active Meds: Active Medications Acetaminophen (Tylenol) 650 mg PO Q4H PRN PRN Reason: Pain MILD(1-3)/Fever >100.5/GIORDANO Albuterol (Proventil) 2.5 mg IH Q4HRT PRN PRN Reason: wheeze Amlodipine Besylate (Norvasc) 10 mg PO DAILY [facility] Last Admin: 12/01/18 16:37 Dose: 10 mg Documented by: Famotidine (Pepcid) 20 mg PO BID [facility] Last Admin: 12/01/18 21:28 Dose: 20 mg Documented by: Furosemide (Lasix) 40 mg IV 0600,1800 [facility] Last Admin: 12/01/18 17:53 Dose: 40 mg Documented by: Hydromorphone HCl (Dilaudid) 0.5 mg IV Q3H PRN PRN Reason: Pain , Severe (7-10) Losartan Potassium (Cozaar) 100 mg PO QDAY [facility] Last Admin: 12/01/18 16:37 Dose: 100 mg Documented by: Metoclopramide HCl (Reglan) 10 mg IV Q6H PRN PRN Reason: Nausea And Vomiting Ondansetron HCl (Zofran) 4 mg IV Q8H PRN PRN Reason: Nausea And Vomiting Oxycodone/Acetaminophen (Percocet 5/325) 1 tab PO Q6H PRN PRN Reason: Pain, Moderate (4-6) Pneumococcal Polyvalent Vaccine (Pneumovax 23) 0.5 ml IM .ONCE ONE Stop: 12/02/18 12:01 Potassium Chloride (K-Dur) 20 meq PO Q12H [facility] Last Admin: 12/01/18 16:37 Dose: 20 meq Documented by: Sodium Chloride (Sodium Chloride Flush Syringe 10 Ml) 10 ml IV BID [facility] Last Admin: 12/01/18 21:28 Dose: 10 ml Documented by: Sodium Chloride (Sodium Chloride Flush Syringe 10 Ml) 10 ml IV PRN PRN PRN Reason: LINE FLUSH Exam - Constitutional Vitals: Temp Pulse Resp BP Pulse Ox 97.2 F L 100 H 20 156/105 99 12/01/18 19:36 12/01/18 19:36 12/01/18 19:36 12/01/18 19:36 12/01/18 19:36 General appearance: Present: mild distress, well-nourished - EENT Eyes: Present: PERRL ENT: hearing intact, clear oral mucosa - Neck Neck: Present: supple, normal ROM - Respiratory Respiratory effort: normal Respiratory: bilateral: CTA - Cardiovascular Heart rate: 90 Rhythm: regular Heart Sounds: Present: S1 & S2. Absent: rub, click - Extremities Extremities: no ischemia, pulses intact, pulses symmetrical, No edema Peripheral Pulses: within normal limits - Abdominal General gastrointestinal: Present: soft, non-tender, non-distended, normal bowel sounds Male genitourinary: Present: normal - Rectal Rectal Exam: deferred - Integumentary Integumentary: Present: clear, warm, dry - Musculoskeletal Musculoskeletal: gait normal, strength equal bilaterally - Psychiatric Psychiatric: appropriate mood/affect, intact judgment & insight - Neurologic Neurologic: CNII-XII intact, moves all extremities - Allied Health Allied health notes reviewed: nursing, case management Results - Labs CBC & Chem 7: 12/02/18 04:06 12/02/18 04:06 Labs: Laboratory Last Values WBC 11.4 K/mm3 (4.5-11.0) H 12/01/18 09:45 RBC 4.84 M/mm3 (3.65-5.03) 12/01/18 09:45 Hgb 14.0 gm/dl (11.8-15.2) 12/01/18 09:45 Hct 42.4 % (35.5-45.6) 12/01/18 09:45 MCV 88 fl (84-94) 12/01/18 09:45 MCH 29 pg (28-32) 12/01/18 09:45 MCHC 33 % (32-34) 12/01/18 09:45 RDW 15.9 % (13.2-15.2) H 12/01/18 09:45 Plt Count 252 K/mm3 (140-440) 12/01/18 09:45 Lymph % (Auto) 16.4 % (13.4-35.0) 12/01/18 09:45 [place] % (Auto) 7.0 % (0.0-7.3) 12/01/18 09:45 Eos % (Auto) 0.1 % (0.0-4.3) 12/01/18 09:45 Baso % (Auto) 0.3 % (0.0-1.8) 12/01/18 09:45 Lymph # 1.9 K/mm3 (1.2-5.4) 12/01/18 09:45 [place] # 0.8 K/mm3 (0.0-0.8) 12/01/18 09:45 Eos # 0.0 K/mm3 (0.0-0.4) 12/01/18 09:45 Baso # 0.0 K/mm3 (0.0-0.1) 12/01/18 09:45 Seg Neutrophils % 76.2 % (40.0-70.0) H 12/01/18 09:45 Seg Neutrophils # 8.7 K/mm3 (1.8-7.7) H 12/01/18 09:45 PT 13.3 Sec. (12.2-14.9) 12/01/18 09:45 INR 0.95 (0.87-1.13) 12/01/18 09:45 APTT 25.7 Sec. (24.2-36.6) 12/01/18 09:45 Sodium 142 mmol/L (137-145) 12/01/18 09:45 Potassium 3.9 mmol/L (3.6-5.0) 12/01/18 09:45 Chloride 105.5 mmol/L (98-107) 12/01/18 09:45 Carbon Dioxide 27 mmol/L (22-30) 12/01/18 09:45 Anion Gap 13 mmol/L 12/01/18 09:45 BUN 20 mg/dL (9-20) 12/01/18 09:45 Creatinine 1.2 mg/dL (0.8-1.5) 12/01/18 09:45 Estimated GFR > 60 ml/min 12/01/18 09:45 BUN/Creatinine Ratio 17 % 12/01/18 09:45 Glucose 130 mg/dL (75-100) H 12/01/18 09:45 Hemoglobin A1c 6.2 % (4-6) H 12/01/18 Unknown Calcium 9.1 mg/dL (8.4-10.2) 12/01/18 09:45 Total Bilirubin 0.60 mg/dL (0.1-1.2) 12/01/18 09:45 Direct Bilirubin < 0.2 mg/dL (0-0.2) 12/01/18 09:45 Indirect Bilirubin 0.4 mg/dL 12/01/18 09:45 AST 62 units/L (5-40) H 12/01/18 09:45 ALT 71 units/L (7-56) H 12/01/18 09:45 Alkaline Phosphatase 45 units/L (35-129) 12/01/18 09:45 Troponin T 0.082 ng/mL (0.00-0.029) H 12/01/18 Unknown NT-Pro-B Natriuret Pep 5497 pg/mL (0-900) H 12/01/18 Unknown Total Protein 6.4 g/dL (6.3-8.2) 12/01/18 09:45 Albumin 3.7 g/dL (3.9-5) L 12/01/18 09:45 Albumin/Globulin Ratio 1.4 % 12/01/18 09:45 Triglycerides 103 mg/dL (2-149) 12/01/18 Unknown Cholesterol 156 mg/dL (50-199) 12/01/18 Unknown LDL Cholesterol Direct 105 mg/dL (50-130) 12/01/18 Unknown HDL Cholesterol 45 mg/dL (40-59) 12/01/18 Unknown Cholesterol/HDL Ratio 3.46 % 12/01/18 Unknown Lipase 22 units/L (13-60) 12/01/18 09:45 Urine Color Yellow (Yellow) 12/01/18 10:18 Urine Turbidity Clear (Clear) 12/01/18 10:18 Urine pH 5.0 (5.0-7.0) 12/01/18 10:18 Ur Specific [place] 1.030 (1.003-1.030) 12/01/18 10:18 Urine Protein <15 mg/dl mg/dL (Negative) 12/01/18 10:18 Urine Glucose (UA) Neg mg/dL (Negative) 12/01/18 10:18 Urine Ketones Neg mg/dL (Negative) 12/01/18 10:18 Urine Blood Neg (Negative) 12/01/18 10:18 Urine Nitrite Neg (Negative) 12/01/18 10:18 Urine Bilirubin Neg (Negative) 12/01/18 10:18 Urine Urobilinogen < 2.0 mg/dL (<2.0) 12/01/18 10:18 Ur Leukocyte Esterase Neg (Negative) 12/01/18 10:18 Urine WBC (Auto) 1.0 /HPF (0.0-6.0) 12/01/18 10:18 Urine RBC (Auto) 1.0 /HPF (0.0-6.0) 12/01/18 10:18 U Epithel Cells (Auto) < 1.0 /HPF (0-13.0) 12/01/18 10:18 Urine Mucus Few /HPF 12/01/18 10:18 Blood Type O POSITIVE 12/01/18 09:45 Antibody Screen Negative 12/01/18 09:45 - Imaging and Cardiology EKG: report reviewed (NSR 90/min LVH) Chest x-ray: report reviewed Imaging and Cardiology: CXR IMPRESSION: Stable cardiomegaly. No acute pulmonary disease.. This document is electronically signed by Adelso Stacy MD., December 01 2018 10:28:13 AM ET Assessment and Plan Advance Directives: Yes (FC) VTE prophylaxis?: Chemical Plan of care discussed with patient/family: Yes - Patient Problems (1) CHF exacerbation Current Visit: Yes Status: Acute Qualifiers: Heart failure type: combined systolic and diastolic Qualified Code(s): I50.43 - Acute on chronic combined systolic (congestive) and diastolic (congestive) heart failure Plan to address problem: EF on 07/17/13 was 40 percent EF on 11/23/14 was 50 to 55 percent ECHO reordered fpor EF CHF protocol (2) HTN (hypertension) Current Visit: Yes Status: Chronic Qualifiers: Hypertension type: essential hypertension Qualified Code(s): I10 - Essential (primary) hypertension Plan to address problem: Cont antihypertensives (3) Elevated troponin Current Visit: Yes Status: Acute Plan to address problem: NSTEMI ?? Cardiolgy consult Heparin drip (4) DVT prophylaxis Current Visit: Yes Status: Acute Plan to address problem: On Heparin drip
[2018-12-02] MEDS ORDERED: APRESOLINE IV PRN (00:31)
[2018-12-02] MEDS: SODIUM CHLORIDE FLUSH SYRINGE 10 ML IV PRN ×2 (01:01→06:00)
[2018-12-02 04:27] LABS: Eosinophils % (Auto) 0.4 % (0.0-4.3); Hematocrit 41.1 % (35.5-45.6); Lymphocytes % (Auto) 26.3 % (13.4-35.0); Mean Corpuscular HGB Conc 34 % (32-34); Mean Corpuscular Volume 87 fl (84-94); Platelet Count 251 K/mm3 (140-440); Red Blood Count 4.75 M/mm3 (3.65-5.03); Red Cell Distribution Width 15.8 % (13.2-15.2)
[2018-12-02 04:28] LABS: Basophils # (Auto) 0.1 K/mm3 (0.0-0.1); Lymphocytes # (Auto) 2.4 K/mm3 (1.2-5.4); Monocytes # (Auto) 0.8 K/mm3 (0.0-0.8)
[2018-12-02 04:54] LABS: Alanine Aminotransferase 57 units/L (7-56); Albumin 3.5 g/dL (3.9-5); BUN/Creatinine Ratio 19; Blood Urea Nitrogen 19 mg/dL (9-20); Calcium 8.8 mg/dL (8.4-10.2); Hemolysis Index 9
[2018-12-02] MEDS: K-DUR PO SCH (05:00)
[2018-12-02] MEDS: LASIX IV SCH ×2 (05:57→18:25)
[2018-12-02 07:52] LABS: Hematocrit 44.1 % (35.5-45.6); Hemoglobin 14.7 gm/dl (11.8-15.2)
[2018-12-02] MEDS ORDERED: HEPARIN/ 0.45% NACL-25,000 UNIT/500 ML 25,000 UNIT/500 ML BAG IV SCH (08:00)
[2018-12-02 08:03] LABS: INR 0.94 (0.87-1.13)
[2018-12-02 08:04] LABS: Partial Thromboplastin Time 25.3 Sec. (24.2-36.6)
[2018-12-02] MEDS: NORVASC PO SCH (09:42)
[2018-12-02] MEDS: COREG PO SCH ×2 (09:42→22:11)
[2018-12-02] MEDS: PEPCID PO SCH ×2 (09:42→22:10)
[2018-12-02] MEDS: COZAAR PO SCH (09:43)
--- NOTE | 2018-12-02 10:57 | Consultation ---
History of Present Illness Consult date: 12/02/18 Consult reason: congestive heart failure History of present illness: Patient is a 58 year old male with chronic hypertensioin and a nonischemic c ardiomyopathy who presented with abdominal pain and melena. In addition, patient complained of shortness of breath associated with coughs and wheezing. Noted hypertensive on presentation. Patient reports he quit taking Lisinopril because he thought this was the cause of his coughs. Chest x-ray reports cardiomegaly but no evidence of interstitial edema. An ECG shows sinus rhythm, LVH with non-specific Twave abnormalities. Medications and Allergies Allergies Allergy/AdvReac Type Severity Reaction Status Date / Time No Known Allergies Allergy Verified 12/01/18 09:06 Home Medications Medication Instructions Recorded Confirmed Last Taken Type ALBUTEROL Inhaler(NF) [VENTOLIN 1 puff IH Q4HRT PRN #1 inha 11/12/18 12/01/18 Unknown Rx Inhaler(NF)] Amlodipine Besylate [Norvasc] 10 mg PO DAILY #30 tablet 11/12/18 12/01/18 Unknown Rx Benzonatate [Tessalon Perles] 100 mg PO Q8HR #10 capsule 11/12/18 12/01/18 Unknown Rx Furosemide [Lasix] 20 mg PO DAILY 11/12/18 12/01/18 11/12/18 History guaiFENesin/CODEINE [Robitussin AC] 5 ml PO Q6HR PRN #100 oral.liqd 11/12/18 12/01/18 Unknown Rx predniSONE [Deltasone] 20 mg PO QDAY #5 tab 11/12/18 12/01/18 Unknown Rx Active Meds: Active Medications Acetaminophen (Tylenol) 650 mg PO Q4H PRN PRN Reason: Pain MILD(1-3)/Fever >100.5/GIORDANO Albuterol (Proventil) 2.5 mg IH Q4HRT PRN PRN Reason: wheeze Amlodipine Besylate (Norvasc) 10 mg PO DAILY [facility] Last Admin: 12/02/18 09:42 Dose: 10 mg Documented by: Carvedilol (Coreg) 6.25 mg PO BID [facility] Last Admin: 12/02/18 09:42 Dose: 6.25 mg Documented by: Famotidine (Pepcid) 20 mg PO BID [facility] Last Admin: 12/02/18 09:42 Dose: 20 mg Documented by: Furosemide (Lasix) 40 mg IV 0600,1800 [facility] Last Admin: 12/02/18 05:57 Dose: 40 mg Documented by: Hydralazine HCl (Apresoline) 5 mg IV Q6HR PRN PRN Reason: Hypertension Last Admin: 12/02/18 01:01 Dose: 5 mg Documented by: Hydromorphone HCl (Dilaudid) 0.5 mg IV Q3H PRN PRN Reason: Pain , Severe (7-10) Heparin Sodium/Sodium Chloride (Heparin/ 0.45% Nacl-25,000 Unit/500 Ml) 25,000 unit in 500 mls @ 30 mls/hr IV TITR [facility]; Protocol Losartan Potassium (Cozaar) 100 mg PO QDAY [facility] Last Admin: 12/02/18 09:43 Dose: 100 mg Documented by: Metoclopramide HCl (Reglan) 10 mg IV Q6H PRN PRN Reason: Nausea And Vomiting Ondansetron HCl (Zofran) 4 mg IV Q8H PRN PRN Reason: Nausea And Vomiting Oxycodone/Acetaminophen (Percocet 5/325) 1 tab PO Q6H PRN PRN Reason: Pain, Moderate (4-6) Pneumococcal Polyvalent Vaccine (Pneumovax 23) 0.5 ml IM .ONCE ONE Stop: 12/02/18 12:01 Potassium Chloride (K-Dur) 20 meq PO Q12H [facility] Last Admin: 12/02/18 05:00 Dose: 20 meq Documented by: Sodium Chloride (Sodium Chloride Flush Syringe 10 Ml) 10 ml IV BID [facility] Last Admin: 12/01/18 21:28 Dose: 10 ml Documented by: Sodium Chloride (Sodium Chloride Flush Syringe 10 Ml) 10 ml IV PRN PRN PRN Reason: LINE FLUSH Last Admin: 12/02/18 06:00 Dose: 10 ml Documented by: Physical Examination Vital Signs Temp Pulse Resp BP Pulse Ox 98.6 F 101 H 16 189/123 98 12/01/18 09:10 12/01/18 09:10 12/01/18 09:10 12/01/18 09:10 12/01/18 09:10 General appearance: no acute distress HEENT: Positive: PERRL Neck: Positive: trachea midline Cardiac: Positive: Reg Rate and Rhythm Lungs: Positive: Decreased Breath Sounds Neuro: Positive: Grossly Intact Extremities: Absent: edema Results 12/02/18 07:37 12/02/18 04:06 Cardiac Enzymes 12/02/18 Range/Units 04:06 AST 40 (5-40) units/L Coagulation 12/02/18 Range/Units 07:39 PT 13.1 (12.2-14.9) Sec. INR 0.94 (0.87-1.13) APTT 25.3 (24.2-36.6) Sec. Lipids 12/01/18 Range/Units Unknown Triglycerides 103 (2-149) mg/dL Cholesterol 156 (50-199) mg/dL HDL Cholesterol 45 (40-59) mg/dL Cholesterol/HDL Ratio 3.46 % CBC 12/02/18 12/02/18 Range/Units 04:06 07:37 WBC 8.9 (4.5-11.0) K/mm3 RBC 4.75 (3.65-5.03) M/mm3 Hgb 14.0 14.7 (11.8-15.2) gm/dl Hct 41.1 44.1 (35.5-45.6) % Plt Count 251 248 (140-440) K/mm3 Lymph # 2.4 (1.2-5.4) K/mm3 [place] # 0.8 (0.0-0.8) K/mm3 Eos # 0.0 (0.0-0.4) K/mm3 Baso # 0.1 (0.0-0.1) K/mm3 Comprehensive Metabolic Panel 12/02/18 Range/Units 04:06 Sodium 145 (137-145) mmol/L Potassium 3.8 (3.6-5.0) mmol/L Chloride 104.5 (98-107) mmol/L Carbon Dioxide 30 (22-30) mmol/L BUN 19 (9-20) mg/dL Creatinine 1.0 (0.8-1.5) mg/dL Glucose 137 H (75-100) mg/dL Calcium 8.8 (8.4-10.2) mg/dL AST 40 (5-40) units/L ALT 57 H (7-56) units/L Alkaline Phosphatase 47 (35-129) units/L Total Protein 5.9 L (6.3-8.2) g/dL Albumin 3.5 L (3.9-5) g/dL Assessment and Plan Abdominal pain with melena -chief complaint Asthma exacerbation Nonischemic cardiomyopathy Hypertension Noncompliant with medication
--- NOTE | 2018-12-02 11:34 | Progress Note ---
Assessment and Plan - Patient Problems (1) Liver masses Current Visit: Yes Status: Acute Plan to address problem: Patient had low density lesions on CT scan of the liver/abdomen. This along with some abdominal pain and melena. GI consult Dr. Abdi (2) Abdominal pain Current Visit: Yes Status: Acute Plan to address problem: Has resolved unclear of association with liver masses. (3) Accelerated hypertension Current Visit: Yes Status: Acute Plan to address problem: Fair but suboptimal control. Will increase beta jacquelyn as tolerated. (4) CHF exacerbation Current Visit: Yes Status: Acute Qualifiers: Heart failure type: combined systolic and diastolic Qualified Code(s): I50.43 - Acute on chronic combined systolic (congestive) and diastolic (congestive) heart failure Plan to address problem: At present very well compensated echocardiogram pending. Continue diuretics NILO inhibitor beta jacquelyn. (5) Elevated troponin Current Visit: Yes Status: Acute Plan to address problem: Cardiac work up in progress History Interval history: Patient states he feels better. No evidence of GI bleeding no abdominal pain. Going down for echocardiogram at present. Shortness of breath no evidence of anemia. Hospital course complicated by low density lesions on CT scan. Hospitalist Physical - Constitutional Vitals: Temp Pulse Resp BP Pulse Ox 98.0 F 93 H 20 138/104 94 12/02/18 09:33 12/02/18 09:43 12/02/18 09:33 12/02/18 09:43 12/02/18 09:33 General appearance: Present: no acute distress - EENT Eyes: Present: PERRL, EOM intact ENT: hearing intact, clear oral mucosa, dentition normal, poor dentition, no oropharyngeal erythema, no thrush, no ulcerations - Neck Neck: Present: supple, normal ROM - Respiratory Respiratory: bilateral: CTA - Cardiovascular Rhythm: regular Heart Sounds: Present: S1 & S2 - Extremities Extremities: no ischemia, pulses intact, pulses symmetrical, Full ROM Extremity abnormal: other (edema) Peripheral Pulses: within normal limits - Abdominal General gastrointestinal: soft, non-tender, normal bowel sounds, no hypoactive bowel sounds, no absent bowel sounds, no hepatomegaly, no splenomegaly - Integumentary Integumentary: Present: clear, warm, dry - Psychiatric Psychiatric: appropriate mood/affect, intact judgment & insight - Neurologic Neurologic: CNII-XII intact, no focal deficits, moves all extremities Results - Labs CBC & Chem 7: 12/02/18 07:37 12/02/18 04:06 Labs: Laboratory Last Values WBC 8.9 K/mm3 (4.5-11.0) 12/02/18 04:06 RBC 4.75 M/mm3 (3.65-5.03) 12/02/18 04:06 Hgb 14.7 gm/dl (11.8-15.2) 12/02/18 07:37 Hct 44.1 % (35.5-45.6) 12/02/18 07:37 MCV 87 fl (84-94) 12/02/18 04:06 MCH 30 pg (28-32) 12/02/18 04:06 MCHC 34 % (32-34) 12/02/18 04:06 RDW 15.8 % (13.2-15.2) H 12/02/18 04:06 Plt Count 248 K/mm3 (140-440) 12/02/18 07:37 Lymph % (Auto) 26.3 % (13.4-35.0) 12/02/18 04:06 [place] % (Auto) 9.0 % (0.0-7.3) H 12/02/18 04:06 Eos % (Auto) 0.4 % (0.0-4.3) 12/02/18 04:06 Baso % (Auto) 1.0 % (0.0-1.8) 12/02/18 04:06 Lymph # 2.4 K/mm3 (1.2-5.4) 12/02/18 04:06 [place] # 0.8 K/mm3 (0.0-0.8) 12/02/18 04:06 Eos # 0.0 K/mm3 (0.0-0.4) 12/02/18 04:06 Baso # 0.1 K/mm3 (0.0-0.1) 12/02/18 04:06 Seg Neutrophils % 63.3 % (40.0-70.0) 12/02/18 04:06 Seg Neutrophils # 5.7 K/mm3 (1.8-7.7) 12/02/18 04:06 PT 13.1 Sec. (12.2-14.9) 12/02/18 07:39 INR 0.94 (0.87-1.13) 12/02/18 07:39 APTT 25.3 Sec. (24.2-36.6) 12/02/18 07:39 Sodium 145 mmol/L (137-145) 12/02/18 04:06 Potassium 3.8 mmol/L (3.6-5.0) 12/02/18 04:06 Chloride 104.5 mmol/L (98-107) 12/02/18 04:06 Carbon Dioxide 30 mmol/L (22-30) 12/02/18 04:06 Anion Gap 14 mmol/L 12/02/18 04:06 BUN 19 mg/dL (9-20) 12/02/18 04:06 Creatinine 1.0 mg/dL (0.8-1.5) 12/02/18 04:06 Estimated GFR > 60 ml/min 12/02/18 04:06 BUN/Creatinine Ratio 19 % 12/02/18 04:06 Glucose 137 mg/dL (75-100) H 12/02/18 04:06 Hemoglobin A1c 6.2 % (4-6) H 12/01/18 Unknown Calcium 8.8 mg/dL (8.4-10.2) 12/02/18 04:06 Total Bilirubin 0.40 mg/dL (0.1-1.2) 12/02/18 04:06 Direct Bilirubin < 0.2 mg/dL (0-0.2) 12/01/18 09:45 Indirect Bilirubin 0.4 mg/dL 12/01/18 09:45 AST 40 units/L (5-40) 12/02/18 04:06 ALT 57 units/L (7-56) H 12/02/18 04:06 Alkaline Phosphatase 47 units/L (35-129) 12/02/18 04:06 Troponin T 0.082 ng/mL (0.00-0.029) H 12/01/18 Unknown NT-Pro-B Natriuret Pep 5497 pg/mL (0-900) H 12/01/18 Unknown Total Protein 5.9 g/dL (6.3-8.2) L 12/02/18 04:06 Albumin 3.5 g/dL (3.9-5) L 12/02/18 04:06 Albumin/Globulin Ratio 1.5 % 12/02/18 04:06 Triglycerides 103 mg/dL (2-149) 12/01/18 Unknown Cholesterol 156 mg/dL (50-199) 12/01/18 Unknown LDL Cholesterol Direct 105 mg/dL (50-130) 12/01/18 Unknown HDL Cholesterol 45 mg/dL (40-59) 12/01/18 Unknown Cholesterol/HDL Ratio 3.46 % 12/01/18 Unknown Lipase 22 units/L (13-60) 12/01/18 09:45 Urine Color Yellow (Yellow) 12/01/18 10:18 Urine Turbidity Clear (Clear) 12/01/18 10:18 Urine pH 5.0 (5.0-7.0) 12/01/18 10:18 Ur Specific [place] 1.030 (1.003-1.030) 12/01/18 10:18 Urine Protein <15 mg/dl mg/dL (Negative) 12/01/18 10:18 Urine Glucose (UA) Neg mg/dL (Negative) 12/01/18 10:18 Urine Ketones Neg mg/dL (Negative) 12/01/18 10:18 Urine Blood Neg (Negative) 12/01/18 10:18 Urine Nitrite Neg (Negative) 12/01/18 10:18 Urine Bilirubin Neg (Negative) 12/01/18 10:18 Urine Urobilinogen < 2.0 mg/dL (<2.0) 12/01/18 10:18 Ur Leukocyte Esterase Neg (Negative) 12/01/18 10:18 Urine WBC (Auto) 1.0 /HPF (0.0-6.0) 12/01/18 10:18 Urine RBC (Auto) 1.0 /HPF (0.0-6.0) 12/01/18 10:18 U Epithel Cells (Auto) < 1.0 /HPF (0-13.0) 12/01/18 10:18 Urine Mucus Few /HPF 12/01/18 10:18 Blood Type O POSITIVE 12/01/18 09:45 Antibody Screen Negative 12/01/18 09:45 - Imaging and Cardiology CT scan - abdomen: report reviewed, image reviewed Active Medications - Current Medications Current Medications: Generic Name Dose Route Start Last Admin Trade Name Freq PRN Reason Stop Dose Admin Acetaminophen 650 mg 12/01/18 16:13 Tylenol PO Q4H PRN Pain MILD(1-3)/Fever >100.5/GIORDANO Albuterol 2.5 mg 12/01/18 17:06 Proventil IH Q4HRT PRN wheeze Amlodipine Besylate 10 mg 12/01/18 17:00 12/02/18 09:42 Norvasc PO 10 mg DAILY [facility] Administration Carvedilol 6.25 mg 12/02/18 10:00 12/02/18 09:42 Coreg PO 6.25 mg BID TASHI Administration Famotidine 20 mg 12/01/18 22:00 12/02/18 09:42 Pepcid PO 20 mg BID TASHI Administration Furosemide 40 mg 12/01/18 18:00 12/02/18 05:57 Lasix IV 40 mg 0600,1800 TASHI Administration Hydralazine HCl 5 mg 12/02/18 00:31 12/02/18 01:01 Apresoline IV 5 mg Q6HR PRN Administration Hypertension Hydromorphone HCl 0.5 mg 12/01/18 16:13 Dilaudid IV Q3H PRN Pain , Severe (7-10) Heparin Sodium/Sodium Chloride 25,000 unit in 500 mls @ 30 mls/hr 12/02/18 08:00 Heparin/ 0.45% Nacl-25,000 Unit/500 Ml IV TITR TASHI Protocol 1,500 UNITS/HR Losartan Potassium 100 mg 12/01/18 17:00 12/02/18 09:43 Cozaar PO 100 mg QDAY TASHI Administration Metoclopramide HCl 10 mg 12/01/18 16:13 Reglan IV Q6H PRN Nausea And Vomiting Ondansetron HCl 4 mg 12/01/18 16:13 Zofran IV Q8H PRN Nausea And Vomiting Oxycodone/Acetaminophen 1 tab 12/01/18 16:13 Percocet 5/325 PO Q6H PRN Pain, Moderate (4-6) Pneumococcal Polyvalent Vaccine 0.5 ml 12/02/18 12:00 Pneumovax 23 IM 12/02/18 12:01 .ONCE ONE Potassium Chloride 20 meq 12/01/18 17:00 12/02/18 05:00 K-Dur PO 20 meq Q12H TASHI Administration Sodium Chloride 10 ml 12/01/18 22:00 12/01/18 21:28 Sodium Chloride Flush Syringe 10 Ml IV 10 ml BID TASHI Administration Sodium Chloride 10 ml 12/01/18 16:13 12/02/18 06:00 Sodium Chloride Flush Syringe 10 Ml IV 10 ml PRN PRN Administration LINE FLUSH
[2018-12-02] MEDS ORDERED: PNEUMOVAX 23 IM ONE (12:00)
[2018-12-02] MEDS ORDERED: AFLURIA QUAD 2018-2019 SYRINGE IM ONE (12:00)
[2018-12-02] MEDS: SODIUM CHLORIDE FLUSH SYRINGE 10 ML IV SCH ×2 (13:42→22:11)
[2018-12-02] MEDS: ALDACTONE PO SCH (15:27)
[2018-12-02] MEDS ORDERED: PROCTOSOL-HC PR PRN (18:05)
--- NOTE | 2018-12-03 02:31 | Consultation ---
HISTORY OF PRESENT ILLNESS: This is a 58-year-old -[place] gentleman with an underlying history of hypertension, who also has a history of congestive heart failure, asthma, and who is noncompliant with his medication. He had presented to the hospital because of dyspnea and had also complained of mild case of hematochezia on one occasion. He has not had any further hematochezia since then. He does not have any abdominal symptoms at present and was to have a stress test done today, which was canceled. He does not complain of any nausea or vomiting at present and appears to be symptomatically doing well. PAST HISTORY: He thinks he may have had a heart attack in the past. No history of CVA. SOCIAL HISTORY: Denies history of smoking, substance abuse. PAST MEDICAL HISTORY: Significant for hypertension, coronary artery disease with MS, GERD symptoms and asthma. There is no history of stent placement. MEDICATIONS: His home medications include amlodipine, benzonatate, Lasix, prednisone, guaifenesin and albuterol. He initially had some lower abdominal pain, which has since resolved. He also had some mild hematochezia, which has also since resolved. PHYSICAL EXAMINATION: VITAL SIGNS: His vitals at present are stable. His blood pressure was elevated at 156/105, pulse was 100, respirations 20, temperature 97.2. HEENT: Showed no JVD. LUNGS: Clear to auscultation. CARDIOVASCULAR: Grossly normal. ABDOMEN: Obese, soft, nontender at present. Normal bowel sounds. RECTAL: Not done. EXTREMITIES: No pedal edema. NEUROLOGIC: He is alert and oriented. LABORATORY DATA: Showed a normal hemoglobin and hematocrit of 14 and 41.1. Electrolytes are otherwise normal. BUN is 19 and creatinine is 1. He has a normal MCV of 88. ASSESSMENT: Initial admission, abdominal pain at admission, which has since resolved. Mild hematochezia, possibly secondary to internal hemorrhoid, which has also since resolved, history of congestive heart failure, history of coronary artery disease, hypertension and obesity. PLAN: To continue to optimize his cardiac function at present. Once the patient's cardiac function has been optimized, colonoscopy may be done as an outpatient. The patient will be empirically treated with Anusol-HC suppository for possible hemorrhoid, which may be the cause of the patient's hematochezia for now. Thank you for the consult. JOB# [id number] ANANYA/CONSUELO
[2018-12-03] MEDS: LASIX IV SCH ×2 (06:40→18:12)
--- NOTE | 2018-12-03 09:05 | Progress Note ---
Assessment and Plan Abdominal pain with melena -chief complaint Asthma exacerbation Systolic heart failure Nonischemic cardiomyopathy NILO inhibitor as were recently stopped due to a persistent cough Hypertension Noncompliant with medication Echocardiogram reports a left ventricular ejection fraction 20-25%. Recommend: Continue medical therapy for nonischemic cardiomyopathy. We will increase beta blockers for suppression of NSVT. Subjective Date of service: 12/03/18 Interval history: Patient has no complaints. Short burst on NSVT seen on telemetry. Patient remained asymptomatic. Objective Vital Signs Temp Pulse Resp BP Pulse Ox 12/03/18 04:19 98.0 F 77 14 133/105 99 12/02/18 23:09 97.9 F 86 16 137/90 93 12/02/18 21:00 91 H 12/02/18 19:43 98.4 F 89 16 150/95 91 12/02/18 16:48 98.2 F 12/02/18 16:47 87 18 147/101 93 12/02/18 13:00 85 12/02/18 09:43 93 H 138/104 12/02/18 09:42 93 H 138/104 12/02/18 09:33 98.0 F 93 H 20 138/104 94 - Physical Examination General: No Apparent Distress HEENT: Positive: PERRL Neck: Positive: trachea midline Cardiac: Positive: Reg Rate and Rhythm Lungs: Positive: Decreased Breath Sounds Neuro: Positive: Grossly Intact Extremities: Absent: edema
[2018-12-03] MEDS: HALFPRIN EC PO SCH (10:28)
[2018-12-03] MEDS: COZAAR PO SCH (10:28)
[2018-12-03] MEDS: COREG PO SCH ×2 (10:28→21:54)
[2018-12-03] MEDS: NORVASC PO SCH (10:28)
[2018-12-03] MEDS: PEPCID PO SCH ×2 (10:28→21:54)
[2018-12-03] MEDS: SODIUM CHLORIDE FLUSH SYRINGE 10 ML IV SCH ×2 (10:29→21:54)
[2018-12-03] MEDS: ALDACTONE PO SCH (10:31)
--- NOTE | 2018-12-03 13:33 | Consultation ---
History of Present Illness Consult date: 12/03/18 Requesting physician: ANNETTE MAY Reason for consult: dyspnea History of present illness: 58 yo w/ NICMP and long-standing medical noncompliance, admitted with abdominal pain and ? blood in stools (the latter has resolved per patient), increased SOB with exertion. States he has to sleep sitting up but cannot tell me whether this is due to SOB. He snores but denies witnessed apnea. States he has poor sleep quality, frequent awakenings. Quit smoking some time ago. Active Medications Acetaminophen (Tylenol) 650 mg PO Q4H PRN PRN Reason: Pain MILD(1-3)/Fever >100.5/GIORDANO Albuterol (Proventil) 2.5 mg IH Q4HRT PRN PRN Reason: wheeze Amlodipine Besylate (Norvasc) 10 mg PO DAILY [facility] Last Admin: 12/03/18 10:28 Dose: 10 mg Documented by: Aspirin (Halfprin Ec) 81 mg PO QDAY [facility] Last Admin: 12/03/18 10:28 Dose: 81 mg Documented by: Carvedilol (Coreg) 12.5 mg PO BID [facility] Famotidine (Pepcid) 20 mg PO BID [facility] Last Admin: 12/03/18 10:28 Dose: 20 mg Documented by: Furosemide (Lasix) 40 mg IV 0600,1800 [facility] Last Admin: 12/03/18 06:40 Dose: 40 mg Documented by: Hydralazine HCl (Apresoline) 5 mg IV Q6HR PRN PRN Reason: Hypertension Last Admin: 12/02/18 01:01 Dose: 5 mg Documented by: Hydrocortisone Acetate (Proctosol-Hc) [address] Q8H PRN PRN Reason: Hemorrhoids Hydromorphone HCl (Dilaudid) 0.5 mg IV Q3H PRN PRN Reason: Pain , Severe (7-10) Milrinone Lactate/Dextrose (Milrinone-D5w 20 Mg/100 Ml) 20 mg in 100 mls @ 13.267 mls/hr IV TITR [facility] Stop: 12/05/18 12:59 Losartan Potassium (Cozaar) 100 mg PO QDAY [facility] Last Admin: 12/03/18 10:28 Dose: 100 mg Documented by: Metoclopramide HCl (Reglan) 10 mg IV Q6H PRN PRN Reason: Nausea And Vomiting Ondansetron HCl (Zofran) 4 mg IV Q8H PRN PRN Reason: Nausea And Vomiting Oxycodone/Acetaminophen (Percocet 5/325) 1 tab PO Q6H PRN PRN Reason: Pain, Moderate (4-6) Sodium Chloride (Sodium Chloride Flush Syringe 10 Ml) 10 ml IV BID [facility] Last Admin: 12/03/18 10:29 Dose: 10 ml Documented by: Sodium Chloride (Sodium Chloride Flush Syringe 10 Ml) 10 ml IV PRN PRN PRN Reason: LINE FLUSH Last Admin: 12/02/18 06:00 Dose: 10 ml Documented by: Spironolactone (Aldactone) 25 mg PO QDAY [facility] Last Admin: 12/03/18 10:31 Dose: 25 mg Documented by: Past History Past Medical History: other (NICMP, HTN) Past Surgical History: No surgical history Social history: full code. denies: smoking, alcohol abuse, prescription drug abuse, IV drug use Family history: other (No pulm issues reported) Medications and Allergies Allergies Allergy/AdvReac Type Severity Reaction Status Date / Time No Known Allergies Allergy Verified 12/01/18 09:06 Home Medications Medication Instructions Recorded Confirmed Last Taken Type ALBUTEROL Inhaler(NF) [VENTOLIN 1 puff IH Q4HRT PRN #1 inha 11/12/18 12/01/18 Unknown Rx Inhaler(NF)] Amlodipine Besylate [Norvasc] 10 mg PO DAILY #30 tablet 11/12/18 12/01/18 Unknown Rx Benzonatate [Tessalon Perles] 100 mg PO Q8HR #10 capsule 11/12/18 12/01/18 Unknown Rx Furosemide [Lasix] 20 mg PO DAILY 11/12/18 12/01/18 11/12/18 History guaiFENesin/CODEINE [Robitussin AC] 5 ml PO Q6HR PRN #100 oral.liqd 11/12/18 12/01/18 Unknown Rx predniSONE [Deltasone] 20 mg PO QDAY #5 tab 11/12/18 12/01/18 Unknown Rx Active Meds: Active Medications Acetaminophen (Tylenol) 650 mg PO Q4H PRN PRN Reason: Pain MILD(1-3)/Fever >100.5/GIORDANO Albuterol (Proventil) 2.5 mg IH Q4HRT PRN PRN Reason: wheeze Amlodipine Besylate (Norvasc) 10 mg PO DAILY [facility] Last Admin: 12/03/18 10:28 Dose: 10 mg Documented by: Aspirin (Halfprin Ec) 81 mg PO QDAY [facility] Last Admin: 12/03/18 10:28 Dose: 81 mg Documented by: Carvedilol (Coreg) 12.5 mg PO BID [facility] Famotidine (Pepcid) 20 mg PO BID [facility] Last Admin: 12/03/18 10:28 Dose: 20 mg Documented by: Furosemide (Lasix) 40 mg IV 0600,1800 [facility] Last Admin: 12/03/18 06:40 Dose: 40 mg Documented by: Hydralazine HCl (Apresoline) 5 mg IV Q6HR PRN PRN Reason: Hypertension Last Admin: 12/02/18 01:01 Dose: 5 mg Documented by: Hydrocortisone Acetate (Proctosol-Hc) [address] Q8H PRN PRN Reason: Hemorrhoids Hydromorphone HCl (Dilaudid) 0.5 mg IV Q3H PRN PRN Reason: Pain , Severe (7-10) Milrinone Lactate/Dextrose (Milrinone-D5w 20 Mg/100 Ml) 20 mg in 100 mls @ 13.267 mls/hr IV TITR [facility] Stop: 12/05/18 12:59 Losartan Potassium (Cozaar) 100 mg PO QDAY [facility] Last Admin: 12/03/18 10:28 Dose: 100 mg Documented by: Metoclopramide HCl (Reglan) 10 mg IV Q6H PRN PRN Reason: Nausea And Vomiting Ondansetron HCl (Zofran) 4 mg IV Q8H PRN PRN Reason: Nausea And Vomiting Oxycodone/Acetaminophen (Percocet 5/325) 1 tab PO Q6H PRN PRN Reason: Pain, Moderate (4-6) Sodium Chloride (Sodium Chloride Flush Syringe 10 Ml) 10 ml IV BID [facility] Last Admin: 12/03/18 10:29 Dose: 10 ml Documented by: Sodium Chloride (Sodium Chloride Flush Syringe 10 Ml) 10 ml IV PRN PRN PRN Reason: LINE FLUSH Last Admin: 12/02/18 06:00 Dose: 10 ml Documented by: Spironolactone (Aldactone) 25 mg PO QDAY [facility] Last Admin: 12/03/18 10:31 Dose: 25 mg Documented by: Review of Systems All systems: negative Physical Examination Vital signs: Vital Signs Temp Pulse Resp BP Pulse Ox 98.6 F 101 H 16 189/123 98 12/01/18 09:10 12/01/18 09:10 12/01/18 09:10 12/01/18 09:10 12/01/18 09:10 General appearance: no acute distress, alert, other (obese) Eyes: non-icteric ENT: oropharynx moist Neck: supple Effort: normal Ascultation: Bilateral: clear Cardiovascular: regular rate and rhythm (no mrg) Gastrointestinal: normoactive bowel sounds, soft, non-tender, non-distended Integumentary: normal Extremities: no cyanosis, no edema, pink and warm normal mental status, non-focal exam, pupils equal and round, CN II-XII normal mood appropriate, affect normal Results - Laboratory Findings CBC and BMP: 12/02/18 07:37 12/02/18 04:06 PT/INR, D-dimer PT 13.1 Sec. (12.2-14.9) 12/02/18 07:39 INR 0.94 (0.87-1.13) 12/02/18 07:39 Abnormal lab findings: Abnormal Labs 12/01/18 12/01/18 12/01/18 09:45 09:45 14:56 WBC 11.4 H RDW 15.9 H Green % (Auto) Seg Neutrophils % 76.2 H Seg Neutrophils # 8.7 H Glucose 130 H Hemoglobin A1c AST 62 H ALT 71 H Troponin T 0.102 H* D NT-Pro-B Natriuret Pep Total Protein Albumin 3.7 L 12/01/18 12/01/18 12/02/18 Unknown Unknown 04:06 WBC RDW 15.8 H Green % (Auto) 9.0 H Seg Neutrophils % Seg Neutrophils # Glucose Hemoglobin A1c 6.2 H AST ALT Troponin T 0.082 H NT-Pro-B Natriuret Pep 5497 H Total Protein Albumin 12/02/18 04:06 WBC RDW [place] % (Auto) Seg Neutrophils % Seg Neutrophils # Glucose 137 H Hemoglobin A1c AST ALT 57 H Troponin T NT-Pro-B Natriuret Pep Total Protein 5.9 L Albumin 3.5 L - Diagnostic Findings Chest x-ray: report reviewed, image reviewed Assessment and Plan Imp: 1. NICMP 2. Accelerated HTN 3. A/C systolic CHF 4. Obesity 5. R/o JONATHON Rec: 1. CHF/HTN management as per cardiology 2. Doubt COPD or asthma but recommend full set of PFTs as an outpatient to be sure; would hold off on adding inhalers pending PFTs, given NSVT/cardiac issues 3. Needs PSG as an outpatient to eval. for JONATHON, he understands; do not drive/operate machinery while sleepy; he needs to apply for Medicaid ISABELL to help him afford PSG, CPAP machine and supplies if needed, medications, etc.; perhaps case management could assist him with this 4. Office information given to him for f/u; we will f/u PRN while he is in-house Plan of care reviewed with patient, he understands/agrees Thanks for the consult.
--- NOTE | 2018-12-03 14:19 | Progress Note ---
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% -On milrinone and IV Lasix, BB, aldactone and ACEI -Cardiology following Liver masses per imaging with abn LFT/melena -H/H stable -GI, Dr. Abdi consulted HTN -BP improved on current antihypertensives, we'll monitor Elevated troponin -Probably secondary to demand ischemia due to the acute heart failure -Troponin level trended down -Cardiology following Asthma -No acute excaerbation -on PRN neb tx Prediabetes with HBA1C of 6.2 -Diet control DVT prophylaxis with SCD Disposition: For discharge when medically stable History Interval history: Patient has no new complaints. He continues to have shortness of breath on exertion. Hospitalist Physical - Constitutional Vitals: Temp Pulse Resp BP Pulse Ox 98.0 F 80 20 142/93 98 12/03/18 13:03 12/03/18 13:02 12/03/18 13:02 12/03/18 13:02 12/03/18 13:02 General appearance: Present: no acute distress - EENT Eyes: Present: PERRL, EOM intact ENT: hearing intact, clear oral mucosa - Neck Neck: Present: supple - Respiratory Respiratory effort: normal Respiratory: bilateral: diminished - Cardiovascular Rhythm: regular Heart Sounds: Present: S1 & S2 - Extremities Extremities: No edema - Abdominal General gastrointestinal: soft, non-tender, non-distended, normal bowel sounds - Integumentary Integumentary: Present: clear, warm, dry - Neurologic Neurologic: CNII-XII intact Results - Labs CBC & Chem 7: 12/02/18 07:37 12/02/18 04:06 Labs: Laboratory Last Values WBC 8.9 K/mm3 (4.5-11.0) 12/02/18 04:06 RBC 4.75 M/mm3 (3.65-5.03) 12/02/18 04:06 Hgb 14.7 gm/dl (11.8-15.2) 12/02/18 07:37 Hct 44.1 % (35.5-45.6) 12/02/18 07:37 MCV 87 fl (84-94) 12/02/18 04:06 MCH 30 pg (28-32) 12/02/18 04:06 MCHC 34 % (32-34) 12/02/18 04:06 RDW 15.8 % (13.2-15.2) H 12/02/18 04:06 Plt Count 248 K/mm3 (140-440) 12/02/18 07:37 Lymph % (Auto) 26.3 % (13.4-35.0) 12/02/18 04:06 [place] % (Auto) 9.0 % (0.0-7.3) H 12/02/18 04:06 Eos % (Auto) 0.4 % (0.0-4.3) 12/02/18 04:06 Baso % (Auto) 1.0 % (0.0-1.8) 12/02/18 04:06 Lymph # 2.4 K/mm3 (1.2-5.4) 12/02/18 04:06 [place] # 0.8 K/mm3 (0.0-0.8) 12/02/18 04:06 Eos # 0.0 K/mm3 (0.0-0.4) 12/02/18 04:06 Baso # 0.1 K/mm3 (0.0-0.1) 12/02/18 04:06 Seg Neutrophils % 63.3 % (40.0-70.0) 12/02/18 04:06 Seg Neutrophils # 5.7 K/mm3 (1.8-7.7) 12/02/18 04:06 PT 13.1 Sec. (12.2-14.9) 12/02/18 07:39 INR 0.94 (0.87-1.13) 12/02/18 07:39 APTT 25.3 Sec. (24.2-36.6) 12/02/18 07:39 Sodium 145 mmol/L (137-145) 12/02/18 04:06 Potassium 3.8 mmol/L (3.6-5.0) 12/02/18 04:06 Chloride 104.5 mmol/L (98-107) 12/02/18 04:06 Carbon Dioxide 30 mmol/L (22-30) 12/02/18 04:06 Anion Gap 14 mmol/L 12/02/18 04:06 BUN 19 mg/dL (9-20) 12/02/18 04:06 Creatinine 1.0 mg/dL (0.8-1.5) 12/02/18 04:06 Estimated GFR > 60 ml/min 12/02/18 04:06 BUN/Creatinine Ratio 19 % 12/02/18 04:06 Glucose 137 mg/dL (75-100) H 12/02/18 04:06 Hemoglobin A1c 6.2 % (4-6) H 12/01/18 Unknown Calcium 8.8 mg/dL (8.4-10.2) 12/02/18 04:06 Total Bilirubin 0.40 mg/dL (0.1-1.2) 12/02/18 04:06 Direct Bilirubin < 0.2 mg/dL (0-0.2) 12/01/18 09:45 Indirect Bilirubin 0.4 mg/dL 12/01/18 09:45 AST 40 units/L (5-40) 12/02/18 04:06 ALT 57 units/L (7-56) H 12/02/18 04:06 Alkaline Phosphatase 47 units/L (35-129) 12/02/18 04:06 Troponin T 0.082 ng/mL (0.00-0.029) H 12/01/18 Unknown NT-Pro-B Natriuret Pep 5497 pg/mL (0-900) H 12/01/18 Unknown Total Protein 5.9 g/dL (6.3-8.2) L 12/02/18 04:06 Albumin 3.5 g/dL (3.9-5) L 12/02/18 04:06 Albumin/Globulin Ratio 1.5 % 12/02/18 04:06 Triglycerides 103 mg/dL (2-149) 12/01/18 Unknown Cholesterol 156 mg/dL (50-199) 12/01/18 Unknown LDL Cholesterol Direct 105 mg/dL (50-130) 12/01/18 Unknown HDL Cholesterol 45 mg/dL (40-59) 12/01/18 Unknown Cholesterol/HDL Ratio 3.46 % 12/01/18 Unknown Lipase 22 units/L (13-60) 12/01/18 09:45 Urine Color Yellow (Yellow) 12/01/18 10:18 Urine Turbidity Clear (Clear) 12/01/18 10:18 Urine pH 5.0 (5.0-7.0) 12/01/18 10:18 Ur Specific [place] 1.030 (1.003-1.030) 12/01/18 10:18 Urine Protein <15 mg/dl mg/dL (Negative) 12/01/18 10:18 Urine Glucose (UA) Neg mg/dL (Negative) 12/01/18 10:18 Urine Ketones Neg mg/dL (Negative) 12/01/18 10:18 Urine Blood Neg (Negative) 12/01/18 10:18 Urine Nitrite Neg (Negative) 12/01/18 10:18 Urine Bilirubin Neg (Negative) 12/01/18 10:18 Urine Urobilinogen < 2.0 mg/dL (<2.0) 12/01/18 10:18 Ur Leukocyte Esterase Neg (Negative) 12/01/18 10:18 Urine WBC (Auto) 1.0 /HPF (0.0-6.0) 12/01/18 10:18 Urine RBC (Auto) 1.0 /HPF (0.0-6.0) 12/01/18 10:18 U Epithel Cells (Auto) < 1.0 /HPF (0-13.0) 12/01/18 10:18 Urine Mucus Few /HPF 12/01/18 10:18 Blood Type O POSITIVE 12/01/18 09:45 Antibody Screen Negative 12/01/18 09:45 Active Medications - Current Medications Current Medications: Generic Name Dose Route Start Last Admin Trade Name Freq PRN Reason Stop Dose Admin Acetaminophen 650 mg 12/01/18 16:13 Tylenol PO Q4H PRN Pain MILD(1-3)/Fever >100.5/GIORDANO Albuterol 2.5 mg 12/01/18 17:06 Proventil IH Q4HRT PRN wheeze Amlodipine Besylate 10 mg 12/01/18 17:00 12/03/18 10:28 Norvasc PO 10 mg DAILY [facility] Administration Aspirin 81 mg 12/03/18 10:00 12/03/18 10:28 Halfprin Ec PO 81 mg QDAY [facility] Administration Carvedilol 12.5 mg 12/03/18 22:00 Coreg PO BID [facility] Famotidine 20 mg 12/01/18 22:00 12/03/18 10:28 Pepcid PO 20 mg BID [facility] Administration Furosemide 40 mg 12/01/18 18:00 12/03/18 06:40 Lasix IV 40 mg 0600,1800 [facility] Administration Hydralazine HCl 5 mg 12/02/18 00:31 12/02/18 01:01 Apresoline IV 5 mg Q6HR PRN Administration Hypertension Hydrocortisone Acetate 1 applic 12/02/18 18:05 Proctosol-Hc WI Q8H PRN Hemorrhoids Hydromorphone HCl 0.5 mg 12/01/18 16:13 Dilaudid IV Q3H PRN Pain , Severe (7-10) Milrinone Lactate/Dextrose 20 mg in 100 mls @ 13.267 mls/hr 12/03/18 13:00 Milrinone-D5w 20 Mg/100 Ml IV 12/05/18 12:59 TITR [facility] 0.375 MCG/KG/MIN Losartan Potassium 100 mg 12/01/18 17:00 12/03/18 10:28 Cozaar PO 100 mg QDAY [facility] Administration Metoclopramide HCl 10 mg 12/01/18 16:13 Reglan IV Q6H PRN Nausea And Vomiting Ondansetron HCl 4 mg 12/01/18 16:13 Zofran IV Q8H PRN Nausea And Vomiting Oxycodone/Acetaminophen 1 tab 12/01/18 16:13 Percocet 5/325 PO Q6H PRN Pain, Moderate (4-6) Sodium Chloride 10 ml 12/01/18 22:00 12/03/18 10:29 Sodium Chloride Flush Syringe 10 Ml IV 10 ml BID [facility] Administration Sodium Chloride 10 ml 12/01/18 16:13 12/02/18 06:00 Sodium Chloride Flush Syringe 10 Ml IV 10 ml PRN PRN Administration LINE FLUSH Spironolactone 25 mg 12/02/18 14:00 12/03/18 10:31 Aldactone PO 25 mg QDAY [facility] Administration
[2018-12-04 05:31] LABS: Hematocrit 44.8 % (35.5-45.6); Hemoglobin 14.8 gm/dl (11.8-15.2)
[2018-12-04] MEDS: LASIX IV SCH ×2 (06:32→18:23)
[2018-12-04] MEDS: MILRINONE-D5W 20 MG/100 ML 20 MG/100 ML BAG IV SCH ×2 (06:33→16:02)
[2018-12-04] MEDS: HALFPRIN EC PO SCH (09:16)
[2018-12-04] MEDS: COREG PO SCH ×2 (09:16→21:26)
[2018-12-04] MEDS: PEPCID PO SCH ×2 (09:16→21:26)
[2018-12-04] MEDS: ALDACTONE PO SCH (09:17)
[2018-12-04] MEDS: NORVASC PO SCH (09:17)
[2018-12-04] MEDS: SODIUM CHLORIDE FLUSH SYRINGE 10 ML IV SCH ×2 (09:17→21:28)
[2018-12-04] MEDS: COZAAR PO SCH (09:17)
--- NOTE | 2018-12-04 10:32 | Progress Note ---
Assessment and Plan Abdominal pain with melena -chief complaint Asthma exacerbation Systolic heart failure Nonischemic cardiomyopathy NILO inhibitor as were recently stopped due to a persistent cough Hypertension Noncompliant with medication Echocardiogram reports a left ventricular ejection fraction 20-25%. Recommend: Continue medical therapy for nonischemic cardiomyopathy. Noninvasive cardiac ischemic assessment on , after heart failure is optimized. Subjective Date of service: 12/04/18 Interval history: Patient has no complaints. Short burst on NSVT seen on telemetry. Patient remained asymptomatic. Objective Vital Signs Temp Pulse Resp BP Pulse Ox 12/03/18 23:24 98.3 F 78 12 121/86 95 12/03/18 22:00 86 12/03/18 20:00 107 H 16 98 12/03/18 19:26 98.8 F 16 161/109 12/03/18 17:25 87 20 150/101 97 12/03/18 17:24 98.3 F 12/03/18 13:03 98.0 F 12/03/18 13:02 80 20 142/93 98 - Physical Examination General: No Apparent Distress HEENT: Positive: PERRL Neck: Positive: trachea midline Cardiac: Positive: Reg Rate and Rhythm Lungs: Positive: Decreased Breath Sounds Neuro: Positive: Grossly Intact Extremities: Absent: edema - Labs and Meds CBC 12/04/18 Range/Units 04:34 Hgb 14.8 (11.8-15.2) gm/dl Hct 44.8 (35.5-45.6) % Plt Count 244 (140-440) K/mm3
--- NOTE | 2018-12-04 14:19 | Progress Note ---
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% -Improving -On milrinone and IV Lasix, BB, aldactone and ACEI -Cardiology following Liver masses per imaging with abn LFT -GI following Hematochezia -Probably secondary to hemorrhoids -On suppository HTN -BP controlled on current antihypertensives, we'll monitor Elevated troponin -Probably secondary to demand ischemia due to the acute heart failure -Troponin level trended down -Cardiology following Asthma -No acute excaerbation -on neb tx Prediabetes with HBA1C of 6.2 -Diet control DVT prophylaxis with SCD Disposition: For discharge when medically stable History Interval history: Patient has no new complaints. His shortness of breath has improved. He denied chest pain. Hospitalist Physical - Constitutional Vitals: Temp Pulse Resp BP Pulse Ox 98.3 F 78 12 121/86 95 12/03/18 23:24 12/03/18 23:24 12/03/18 23:24 12/03/18 23:24 12/03/18 23:24 General appearance: Present: no acute distress - EENT Eyes: Present: PERRL, EOM intact ENT: hearing intact, clear oral mucosa - Neck Neck: Present: supple - Respiratory Respiratory effort: normal Respiratory: bilateral: wheezing - Cardiovascular Rhythm: regular Heart Sounds: Present: S1 & S2 - Extremities Extremity abnormal: edema (trace edema in bilateral lower extremities) - Abdominal General gastrointestinal: soft, non-tender, normal bowel sounds - Integumentary Integumentary: Present: clear, warm, dry - Neurologic Neurologic: CNII-XII intact Results - Labs CBC & Chem 7: 12/04/18 04:34 12/02/18 04:06 Labs: Laboratory Last Values WBC 8.9 K/mm3 (4.5-11.0) 12/02/18 04:06 RBC 4.75 M/mm3 (3.65-5.03) 12/02/18 04:06 Hgb 14.8 gm/dl (11.8-15.2) 12/04/18 04:34 Hct 44.8 % (35.5-45.6) 12/04/18 04:34 MCV 87 fl (84-94) 12/02/18 04:06 MCH 30 pg (28-32) 12/02/18 04:06 MCHC 34 % (32-34) 12/02/18 04:06 RDW 15.8 % (13.2-15.2) H 12/02/18 04:06 Plt Count 244 K/mm3 (140-440) 12/04/18 04:34 Lymph % (Auto) 26.3 % (13.4-35.0) 12/02/18 04:06 Barnes % (Auto) 9.0 % (0.0-7.3) H 12/02/18 04:06 Eos % (Auto) 0.4 % (0.0-4.3) 12/02/18 04:06 Baso % (Auto) 1.0 % (0.0-1.8) 12/02/18 04:06 Lymph # 2.4 K/mm3 (1.2-5.4) 12/02/18 04:06 Barnes # 0.8 K/mm3 (0.0-0.8) 12/02/18 04:06 Eos # 0.0 K/mm3 (0.0-0.4) 12/02/18 04:06 Baso # 0.1 K/mm3 (0.0-0.1) 12/02/18 04:06 Seg Neutrophils % 63.3 % (40.0-70.0) 12/02/18 04:06 Seg Neutrophils # 5.7 K/mm3 (1.8-7.7) 12/02/18 04:06 PT 13.1 Sec. (12.2-14.9) 12/02/18 07:39 INR 0.94 (0.87-1.13) 12/02/18 07:39 APTT 25.3 Sec. (24.2-36.6) 12/02/18 07:39 Sodium 145 mmol/L (137-145) 12/02/18 04:06 Potassium 3.8 mmol/L (3.6-5.0) 12/02/18 04:06 Chloride 104.5 mmol/L (98-107) 12/02/18 04:06 Carbon Dioxide 30 mmol/L (22-30) 12/02/18 04:06 Anion Gap 14 mmol/L 12/02/18 04:06 BUN 19 mg/dL (9-20) 12/02/18 04:06 Creatinine 1.0 mg/dL (0.8-1.5) 12/02/18 04:06 Estimated GFR > 60 ml/min 12/02/18 04:06 BUN/Creatinine Ratio 19 % 12/02/18 04:06 Glucose 137 mg/dL (75-100) H 12/02/18 04:06 Hemoglobin A1c 6.2 % (4-6) H 12/01/18 Unknown Calcium 8.8 mg/dL (8.4-10.2) 12/02/18 04:06 Total Bilirubin 0.40 mg/dL (0.1-1.2) 12/02/18 04:06 Direct Bilirubin < 0.2 mg/dL (0-0.2) 12/01/18 09:45 Indirect Bilirubin 0.4 mg/dL 12/01/18 09:45 AST 40 units/L (5-40) 12/02/18 04:06 ALT 57 units/L (7-56) H 12/02/18 04:06 Alkaline Phosphatase 47 units/L (35-129) 12/02/18 04:06 Troponin T 0.082 ng/mL (0.00-0.029) H 12/01/18 Unknown NT-Pro-B Natriuret Pep 5497 pg/mL (0-900) H 12/01/18 Unknown Total Protein 5.9 g/dL (6.3-8.2) L 12/02/18 04:06 Albumin 3.5 g/dL (3.9-5) L 12/02/18 04:06 Albumin/Globulin Ratio 1.5 % 12/02/18 04:06 Triglycerides 103 mg/dL (2-149) 12/01/18 Unknown Cholesterol 156 mg/dL (50-199) 12/01/18 Unknown LDL Cholesterol Direct 105 mg/dL (50-130) 12/01/18 Unknown HDL Cholesterol 45 mg/dL (40-59) 12/01/18 Unknown Cholesterol/HDL Ratio 3.46 % 12/01/18 Unknown Lipase 22 units/L (13-60) 12/01/18 09:45 Urine Color Yellow (Yellow) 12/01/18 10:18 Urine Turbidity Clear (Clear) 12/01/18 10:18 Urine pH 5.0 (5.0-7.0) 12/01/18 10:18 Ur Specific [place] 1.030 (1.003-1.030) 12/01/18 10:18 Urine Protein <15 mg/dl mg/dL (Negative) 12/01/18 10:18 Urine Glucose (UA) Neg mg/dL (Negative) 12/01/18 10:18 Urine Ketones Neg mg/dL (Negative) 12/01/18 10:18 Urine Blood Neg (Negative) 12/01/18 10:18 Urine Nitrite Neg (Negative) 12/01/18 10:18 Urine Bilirubin Neg (Negative) 12/01/18 10:18 Urine Urobilinogen < 2.0 mg/dL (<2.0) 12/01/18 10:18 Ur Leukocyte Esterase Neg (Negative) 12/01/18 10:18 Urine WBC (Auto) 1.0 /HPF (0.0-6.0) 12/01/18 10:18 Urine RBC (Auto) 1.0 /HPF (0.0-6.0) 12/01/18 10:18 U Epithel Cells (Auto) < 1.0 /HPF (0-13.0) 12/01/18 10:18 Urine Mucus Few /HPF 12/01/18 10:18 Blood Type O POSITIVE 12/01/18 09:45 Antibody Screen Negative 12/01/18 09:45 Active Medications - Current Medications Current Medications: Generic Name Dose Route Start Last Admin Trade Name Freq PRN Reason Stop Dose Admin Acetaminophen 650 mg 12/01/18 16:13 Tylenol PO Q4H PRN Pain MILD(1-3)/Fever >100.5/GIORDANO Albuterol 2.5 mg 12/01/18 17:06 Proventil IH Q4HRT PRN wheeze Amlodipine Besylate 10 mg 12/01/18 17:00 12/04/18 09:17 Norvasc PO 10 mg DAILY TASHI Administration Aspirin 81 mg 12/03/18 10:00 12/04/18 09:16 Halfprin Ec PO 81 mg QDAY TASHI Administration Carvedilol 12.5 mg 12/03/18 22:00 12/04/18 09:16 Coreg PO 12.5 mg BID TASHI Administration Famotidine 20 mg 12/01/18 22:00 12/04/18 09:16 Pepcid PO 20 mg BID TASHI Administration Furosemide 40 mg 12/01/18 18:00 12/04/18 06:32 Lasix IV 40 mg 0600,1800 TASHI Administration Hydralazine HCl 5 mg 12/02/18 00:31 12/02/18 01:01 Apresoline IV 5 mg Q6HR PRN Administration Hypertension Hydrocortisone Acetate 1 applic 12/02/18 18:05 Proctosol-Hc FL Q8H PRN Hemorrhoids Hydromorphone HCl 0.5 mg 12/01/18 16:13 Dilaudid IV Q3H PRN Pain , Severe (7-10) Milrinone Lactate/Dextrose 20 mg in 100 mls @ 13.267 mls/hr 12/03/18 13:00 12/04/18 06:33 Milrinone-D5w 20 Mg/100 Ml IV 12/05/18 12:59 0.375 mcg/kg/min TITR TASHI 13.267 mls/hr Administration 0.375 MCG/KG/MIN Losartan Potassium 100 mg 12/01/18 17:00 12/04/18 09:17 Cozaar PO 100 mg QDAY TASHI Administration Metoclopramide HCl 10 mg 12/01/18 16:13 Reglan IV Q6H PRN Nausea And Vomiting Ondansetron HCl 4 mg 12/01/18 16:13 Zofran IV Q8H PRN Nausea And Vomiting Oxycodone/Acetaminophen 1 tab 12/01/18 16:13 Percocet 5/325 PO Q6H PRN Pain, Moderate (4-6) Sodium Chloride 10 ml 12/01/18 22:00 12/04/18 09:17 Sodium Chloride Flush Syringe 10 Ml IV 10 ml BID TASHI Administration Sodium Chloride 10 ml 12/01/18 16:13 12/02/18 06:00 Sodium Chloride Flush Syringe 10 Ml IV 10 ml PRN PRN Administration LINE FLUSH Spironolactone 25 mg 12/02/18 14:00 12/04/18 09:17 Aldactone PO 25 mg QDAY TASHI Administration
[2018-12-04] MEDS: DUONEB *Not for PRN Use IH SCH ×2 (20:01→20:03)
[2018-12-05] MEDS: MILRINONE-D5W 20 MG/100 ML 20 MG/100 ML BAG IV SCH (02:15)
[2018-12-05] MEDS: DUONEB *Not for PRN Use IH SCH ×4 (03:49→20:06)
[2018-12-05] MEDS: LASIX IV SCH ×2 (05:48→18:53)
[2018-12-05] MEDS: SODIUM CHLORIDE FLUSH SYRINGE 10 ML IV PRN (05:50)
[2018-12-05 06:54] LABS: BUN/Creatinine Ratio 16; Blood Urea Nitrogen 19 mg/dL (9-20); Calcium 8.7 mg/dL (8.4-10.2); Hemolysis Index 13
[2018-12-05] MEDS ORDERED: K-DUR PO ONE (08:30)
[2018-12-05] MEDS ORDERED: PROVENTIL IH PRN (08:55)
[2018-12-05] MEDS ORDERED: LEXISCAN IV ONE ×2 (10:25→10:53)
--- NOTE | 2018-12-05 13:47 | Event Note ---
Date: 12/05/18 Patient underwent a Lexiscan thallium stress test, which demonstrates a severe dilated cardiomyopathy, left ventricular ejection fraction 15%. A large fixed inferior defect of moderate intensity is likely diaphragmatic attenuation artifact, no reversible ischemia is demonstrated. Recommend continued medical therapy for systolic heart failure, patient is stable for cardiac discharge medications, follow-up with his primary black leather trimmer in 5-7 days.
[2018-12-05] MEDS: HALFPRIN EC PO SCH (14:37)
[2018-12-05] MEDS: COREG PO SCH ×2 (14:37→21:07)
[2018-12-05] MEDS: COZAAR PO SCH (14:37)
[2018-12-05] MEDS: PEPCID PO SCH ×2 (14:37→21:07)
[2018-12-05] MEDS: NORVASC PO SCH (14:37)
[2018-12-05] MEDS: ALDACTONE PO SCH (14:37)
[2018-12-05] MEDS: SODIUM CHLORIDE FLUSH SYRINGE 10 ML IV SCH ×2 (14:45→21:09)
--- NOTE | 2018-12-05 16:43 | Progress Note ---
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% -Improved -off milrinone and IV Lasix, cont BB, aldactone and ACEI -Cardiology following, Liver masses per imaging with abn LFT -ordered MRI abdomen Hematochezia -Probably secondary to hemorrhoids -On suppository HTN -BP controlled on current antihypertensives, we'll monitor Elevated troponin -Probably secondary to demand ischemia due to the acute heart failure -Troponin level trended down -Cardiology following, stress test was done today Asthma -No acute excaerbation -on neb tx Prediabetes with HBA1C of 6.2 -Diet control DVT prophylaxis with SCD Disposition: For discharge when MRI result available Hospitalist Physical General appearance: Present: no acute distress - EENT Eyes: Present: PERRL, EOM intact ENT: hearing intact, clear oral mucosa - Neck Neck: Present: supple - Respiratory Respiratory effort: normal Respiratory: bilateral: wheezing - Cardiovascular Rhythm: regular Heart Sounds: Present: S1 & S2 - Extremities Extremity abnormal: edema (trace edema in bilateral lower extremities) - Abdominal General gastrointestinal: soft, non-tender, normal bowel sounds - Integumentary Integumentary: Present: clear, warm, dry - Neurologic Neurologic: CNII-XII intact Subjective Date of service: 12/05/18 Interval history: Patient seen and examined No acute event o/n, denies chest pain s/p stress test today, MRI pending Objective - Constitutional Vitals: Vital Signs - 12hr 12/05/18 12/05/18 12/05/18 08:51 08:53 09:03 Temperature Pulse Rate Pulse Rate [ 83 85 Bilateral Bases ] Respiratory Rate Respiratory 18 18 Rate [Bilateral Bases] Blood Pressure O2 Sat by Pulse 98 Oximetry 12/05/18 12/05/18 12/05/18 09:15 09:18 10:14 Temperature 98.2 F 98.2 F Pulse Rate 84 Pulse Rate [ Bilateral Bases ] Respiratory 16 16 Rate Respiratory Rate [Bilateral Bases] Blood Pressure 142/101 133/101 O2 Sat by Pulse 96 Oximetry 12/05/18 12/05/18 12/05/18 10:21 10:39 10:46 Temperature Pulse Rate Pulse Rate [ Bilateral Bases ] Respiratory Rate Respiratory Rate [Bilateral Bases] Blood Pressure 136/101 137/103 143/109 O2 Sat by Pulse Oximetry 12/05/18 12/05/1819 10:48 10:50 10:51 Temperature Pulse Rate Pulse Rate [ Bilateral Bases ] Respiratory Rate Respiratory Rate [Bilateral Bases] Blood Pressure 148/83 141/88 141/85 O2 Sat by Pulse Oximetry 12/05/18 12/05/18 12/05/18 10:53 13:39 13:55 Temperature 98.3 F Pulse Rate 87 Pulse Rate [ 90 Bilateral Bases ] Respiratory 16 Rate Respiratory 18 Rate [Bilateral Bases] Blood Pressure 139/86 111/70 O2 Sat by Pulse 96 Oximetry 12/05/18 14:05 Temperature Pulse Rate Pulse Rate [ 79 Bilateral Bases ] Respiratory Rate Respiratory 18 Rate [Bilateral Bases] Blood Pressure O2 Sat by Pulse Oximetry - Labs CBC & Chem 7: 12/06/18 05:12 12/06/18 05:12 Labs: Abnormal lab results 12/05/18 Range/Units 04:52 Potassium 3.5 L (3.6-5.0) mmol/L Carbon Dioxide 31 H (22-30) mmol/L Glucose 113 H (75-100) mg/dL
--- NOTE | 2018-12-05 16:54 | Magnetic Resonance Report ---
PROCEDURE: MR ABDOMEN WO/W CON HISTORY: hepatic nodule FINDINGS: MRI of the abdomen was performed using axial T2*gradient echo, coronal T2*gradient echo, T1 -weighted gradient echo images, axial T1-weighted gradient echo images obtained in and out of phase, and axial fat-saturated T1-weighted images obtained before and after the administration of 19 cc intr avenous MultiHance. Comparison is made to the CT examination of December 01. There is cardiomegaly. There are 2 benign hepatic hemangiomas, which are T2 hyperintense to the liver and which display carina pheral nodular progressive enhancement following contrast administration. Lesion in the lateral segme nt left lobe of liver measures approximately 2.8 x 2.6 cm. Lesion of the posterior segment right lobe of liver measures 5.0 x 2.9 cm. No suspect focal hepatic lesion is seen. The spleen is normal in size. The adrenal glands are within normal limits. No focal pancreatic lesion is seen. There are gallstones. No evidence of cholecystitis is seen. There is no biliary dilation. There are b ilateral renal cysts. The abdominal aorta is normal IMPRESSION: Two benign hepatic hemangiomas This document is electronically signed by Walter Patino MD., December 05 2018 04:52:40 PM ET
--- NOTE | 2018-12-05 21:19 | Treadmill Report ---
THALLIUM STRESS TEST LEFT VENTRICLE: Left ventricle is severely dilated. Perfusion study demonstrates a large, fixed inferior defect of moderate intensity. No significant reversibility is noted. Gated analysis demonstrates severe left ventricular systolic dysfunction, ejection fraction 15%. CONCLUSION: Evidence of a severe dilated cardiomyopathy, severe left ventricular systolic dysfunction, ejection fraction 15%. Fixed inferior wall defect of moderate intensity may represent diaphragmatic attenuation artifact. Cannot exclude a prior inferior wall myocardial infarction. There is no significant reversible ischemia demonstrated. Clinical correlation is recommended. JOB# [id number] CA/NTS
[2018-12-06] MEDS: LASIX IV SCH (05:15)
[2018-12-06 05:51] LABS: Hematocrit 45.2 % (35.5-45.6); Hemoglobin 14.9 gm/dl (11.8-15.2)
[2018-12-06 06:14] LABS: BUN/Creatinine Ratio 13; Blood Urea Nitrogen 17 mg/dL (9-20); Calcium 9.1 mg/dL (8.4-10.2); Hemolysis Index 11
[2018-12-06] MEDS: DUONEB *Not for PRN Use IH SCH ×2 (07:37→13:59)
[2018-12-06 08:44] VITALS: BP 124/86
[2018-12-06] MEDS: COREG PO SCH (09:42)
[2018-12-06] MEDS: PEPCID PO SCH (09:42)
[2018-12-06] MEDS: NORVASC PO SCH (09:42)
[2018-12-06] MEDS: ALDACTONE PO SCH (09:43)
[2018-12-06] MEDS: COZAAR PO SCH (09:43)
[2018-12-06] MEDS: HALFPRIN EC PO SCH (09:43)
[2018-12-06] MEDS: SODIUM CHLORIDE FLUSH SYRINGE 10 ML IV SCH (09:45)
--- NOTE | 2018-12-06 11:19 | Discharge Summary ---
Providers - Providers Date of Admission: 12/01/18 15:05 Date of discharge: 12/06/18 Attending physician: SHANNAN WISEMAN 12/01/18 15:04 Consult to Physician [CONS] Stat Comment: Consulting Provider: ANA PAULA EAST Physician Instructions: Reason For Exam: shortness of breath and elevated troponin 12/02/18 11:36 Consult to Physician [CONS] Routine Comment: Consulting Provider: KIRK JC Physician Instructions: Reason For Exam: liver lesions 12/03/18 11:30 Consult to Physician [CONS] Routine Comment: Consulting Provider: BETAHNIE ROTH Physician Instructions: Reason For Exam: evaluation for sleep apnea [facility] Hospitalization Condition: Stable Pertinent studies: CXR Abdomen/pelvis CT MRI abdomen 2d echocardiogram MPI stress test Hospital course: This is a 58-year-old man with a history of dilated nonischemic cardiomyopathy, s/p cardiac catheterization demonstrated normal coronary arteries, chronic uncontrolled hypertension presented to the hospital with c/o abdominal pain, bloody stool and some shortness of breath with orthopnea. ECG on this presentation is normal sinus rhythm with nonspecific ST and T-wave changes. Echocardiogram demonstrates a recurrence of his severe dilated cardiomyopathy, left ventricular ejection fraction 20-25%. Cardiology consulted and placed on iv milrinone and IV Lasix, along with BB, aldactone and ACEI. H/H remained stable and his rectal bleed stopped after placing hydrocortisone cream SC. S/p stress test which demonstrates a severe dilated cardiomyopathy, left ventricular ejection fraction 15%, no reversible ischemia is demonstrated. Cardilogy Recommend to continue medical therapy for systolic heart failure, patient was cleared for discharge by increment manager, he will follow-up with his primary increment manager in 5-7 days. 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% -Improved -s/p milrinone and IV Lasix, Cardiology was consulted - Change IV lasix to po Bumex with potassium supplementation - Will cont BB, aldactone and ACEI, will followup outpt Liver masses - ruled out -ordered MRI abdomen which was normal Abnormal LFT - likely from CHF, stable Hematochezia -Probably secondary to hemorrhoids -On hydrocortisone suppository HTN -BP controlled on current antihypertensives, Elevated troponin -Probably secondary to demand ischemia due to the acute heart failure -Troponin level trended down -Cardiology following, stress test was done today Asthma -No acute excaerbation -on neb tx as needed Prediabetes with HBA1C of 6.2 -BG monitor with Dietary control DVT prophylaxis with SCD Disposition: home Hospitalist Physical General appearance: Present: no acute distress - EENT Eyes: Present: PERRL, EOM intact ENT: hearing intact, clear oral mucosa - Neck Neck: Present: supple - Respiratory Respiratory effort: normal Respiratory: bilateral: wheezing - Cardiovascular Rhythm: regular Heart Sounds: Present: S1 & S2 - Extremities Extremity abnormal: edema (trace edema in bilateral lower extremities) - Abdominal General gastrointestinal: soft, non-tender, normal bowel sounds - Integumentary Integumentary: Present: clear, warm, dry - Neurologic Neurologic: CNII-XII intact Disposition: DE-01 TO HOME OR SELFCARE Time spent for discharge: 34 minutes Core Measure Documentation - Palliative Care Palliative Care/ Comfort Measures: Not Applicable - Core Measures Any of the following diagnoses?: heart failure - Heart Failure Discharge Requirements NILO/ARB for LVSD if EF <40%: Yes Beta jacquelyn at discharge: Yes Exam - Constitutional Vitals: Temp Pulse Resp BP Pulse Ox 97.9 F 80 18 124/86 92 12/06/18 08:42 12/06/18 08:42 12/06/18 08:42 12/06/18 08:42 12/06/18 08:42 Plan Activity: advance as tolerated Weight Bearing Status: Partial Weight Bearing Diet: low fat, low salt Special Instructions: restrict fluid intake to (1.2L/day), record daily weights, record daily BP diary Follow up with: SHILPA LEAHY MD [Staff Physician] - 7 Days DAWN BRIAN TSANG MD [Primary Care Provider] - 3-5 Days Forms: Accompanied Note Prescriptions: Spironolactone [Aldactone] 25 mg PO QDAY #30 tablet Aspirin EC [Aspirin Enteric Coated TAB] 81 mg PO QDAY #30 tablet Bumetanide [Bumex 1 mg tab] 1 mg PO 0600,1800 #60 tablet Carvedilol [Coreg] 12.5 mg PO BID #60 tablet Losartan [Cozaar] 100 mg PO QDAY #30 tablet Amlodipine Besylate [Norvasc] 10 mg PO DAILY #30 tablet
--- NOTE | 2018-12-06 11:31 | Progress Note ---
Assessment and Plan Abdominal pain with melena -chief complaint Asthma exacerbation Systolic heart failure Nonischemic cardiomyopathy NILO inhibitor as were recently stopped due to a persistent cough Hypertension Noncompliant with medication Echocardiogram this admission reports a left ventricular ejection fraction 20- 25%. Lexiscan thallium stress test demonstrates a large fixed inferior defect of moderate intensity is likely diaphragmatic attenuation artifact, no reversible ischemia is demonstrated. Recommend: Continue medical therapy for nonischemic cardiomyopathy. Stable cardiac vega for discharge. Patient advised to f/u with his primary balance bridge inspector, Dr Ambrocio, within 7 days. Subjective Date of service: 12/06/18 Interval history: Patient reports he is feeling better. Short burst of NSVT seen on telemetry. Patient remained asymptomatic. Objective Vital Signs Temp Pulse Pulse Pulse Resp Resp Resp 12/06/18 08:42 97.9 F 80 18 12/06/18 04:31 98.0 F 74 20 12/05/18 23:33 98.0 F 67 18 12/05/18 20:32 81 18 12/05/18 20:07 88 18 12/05/18 19:52 98.0 F 86 18 12/05/18 19:00 74 12/05/18 17:02 98.2 F 77 16 12/05/18 14:05 79 18 12/05/18 13:55 90 18 12/05/18 13:39 98.3 F 87 16 BP Pulse Ox 12/06/18 08:42 124/86 92 12/06/18 04:31 133/82 94 12/05/18 23:33 114/71 98 12/05/18 20:32 12/05/18 20:07 12/05/18 19:52 131/94 97 12/05/18 19:00 12/05/18 17:02 143/94 100 12/05/18 14:05 12/05/18 13:55 12/05/18 13:39 111/70 96 - Physical Examination General: No Apparent Distress HEENT: Positive: PERRL Neck: Positive: trachea midline Cardiac: Positive: Reg Rate and Rhythm Lungs: Positive: Decreased Breath Sounds Neuro: Positive: Grossly Intact Extremities: Absent: edema - Labs and Meds CBC 12/06/18 Range/Units 05:12 Hgb 14.9 (11.8-15.2) gm/dl Hct 45.2 (35.5-45.6) % Plt Count 268 (140-440) K/mm3 Comprehensive Metabolic Panel 12/06/18 Range/Units 05:12 Sodium 142 (137-145) mmol/L Potassium 3.7 (3.6-5.0) mmol/L Chloride 100.8 (98-107) mmol/L Carbon Dioxide 31 H (22-30) mmol/L BUN 17 (9-20) mg/dL Creatinine 1.3 (0.8-1.5) mg/dL Glucose 103 H (75-100) mg/dL Calcium 9.1 (8.4-10.2) mg/dL
[2018-12-06] MEDS ORDERED: BUMEX PO SCH (18:00)
== END 2018-12-06 14:06 | disposition home or self-care (01) | DRG 393 ==
LOC: ED 09:04 → 4A 15:05
PROVIDERS: ADMIT Internal Medicine; ATTEND Internal Medicine
PROC: 3E0234Z Introduction of Serum, Toxoid and Vaccine into Muscle, Percutaneous Approach (ICD-10-PCS; principal; 2018-12-02)
DX: K64.9 Unspecified hemorrhoids (principal); I50.43 Acute on chronic combined systolic (congestive) and diastolic (congestive) heart failure; I42.0 Dilated cardiomyopathy; I11.0 Hypertensive heart disease with heart failure; R74.8 Abnormal levels of other serum enzymes; K21.9 Gastro-esophageal reflux disease without esophagitis; R73.03 Prediabetes; R94.5 Abnormal results of liver function studies; J45.909 Unspecified asthma, uncomplicated; R16.0 Hepatomegaly, not elsewhere classified; E66.9 Obesity, unspecified; Z91.14 Patient's other noncompliance with medication regimen; I25.2 Old myocardial infarction; Z95.5 Presence of coronary angioplasty implant and graft; Z79.51 Long term (current) use of inhaled steroids; Z79.899 Other long term (current) drug therapy; Z68.34 Body mass index [BMI] 34.0-34.9, adult; Z87.891 Personal history of nicotine dependence; Z23 Encounter for immunization
CPT/HCPCS: 36415; 71045; 74177; 74183; 78452; 80048; 80053; 80061; 80076; 81001; 82271; 83036; 83690; 83880; 84484; 85014; 85018; 85025; 85049; 85610; 85730; 86850; 86900; 86901; 90686; 90732; 93005; 93010; 93017; 93306; 94640; G0378; A9502; A9577; J0360; J1644; J1940; J2260; J2270; J2405; J2785; Q9967

== ENCOUNTER 2019-06-01 08:58 | Inpatient (IN) | payer OTHER ==
[2019-06-01] MEDS ORDERED: BABY ASPIRIN PO ONE (09:08)
--- NOTE | 2019-06-01 09:21 | Emergency Department Report ---
ED Chest Pain HPI - General Chief Complaint: Dyspnea/Respdistress Stated Complaint: CHEST PAIN Time Seen by Provider: 06/01/19 09:05 Source: patient, family Mode of arrival: Wheelchair Limitations: Physical Limitation - History of Present Illness Initial Comments: 59-year-old -[place]er male patient with history of CHF, [place], and uncontrolled hypertension since 2 ED with complaints of shortness of breath for months worsening for the past few days. Patient also states that he has swelling in his legs that is coming up into his abdomen. He denies any chest pain. He states he is taking spironolactone and amlodipine. Patient is unable to state who is primary care physician is. He appears confused w when attempting to answer questions. Patient is a poor historian. MD Complaint: other (Shortness of Breath ) -: Gradual, month(s) Onset: during rest, during exertion Pain Radiation: none Severity: severe Consistency: constant Worsens With: exertion, supine re: denies: nausea, vomting, diaphoresis Other Symptoms: denies: cough Treatments Prior to Arrival: none - Related Data Previous Rx's Medication Instructions Recorded Last Taken Type ALBUTEROL Inhaler(NF) [VENTOLIN 1 puff IH Q4HRT PRN #1 inha 11/12/18 Unknown Rx Inhaler(NF)] Amlodipine Besylate [Norvasc] 10 mg PO DAILY #30 tablet 12/06/18 Unknown Rx Aspirin EC [Halfprin EC] 81 mg PO QDAY #30 tablet 12/06/18 Unknown Rx Bumetanide [Bumex 1 mg tab] 1 mg PO 0600,1800 #60 tablet 12/06/18 Unknown Rx Carvedilol [Coreg] 12.5 mg PO BID #60 tablet 12/06/18 Unknown Rx Losartan [Cozaar] 100 mg PO QDAY #30 tablet 12/06/18 Unknown Rx Spironolactone [Aldactone] 25 mg PO QDAY #30 tablet 12/06/18 Unknown Rx Allergies Allergy/AdvReac Type Severity Reaction Status Date / Time No Known Allergies Allergy Verified 12/01/18 09:06 Heart Score - HEART Score History: Slightly suspicious EKG: Non-specific Age: 45-65 Risk factors: > 3 risk factors or hx of atherosclerotic disease Troponin: 1-3x normal limit HEART Score: 5 - Critical Actions Critical Actions: 4-6 pts:12-16.6% risk of adverse cardiac event. Should be admitted ED Review of Systems ROS: Stated complaint: CHEST PAIN Other details as noted in HPI Constitutional: denies: chills, fever Eyes: denies: eye pain, eye discharge, vision change ENT: denies: ear pain, throat pain Respiratory: orthopnea, shortness of breath, SOB with exertion, SOB at rest. denies: cough Cardiovascular: dyspnea on exertion, edema. denies: chest pain, palpitations, syncope Gastrointestinal: denies: abdominal pain, nausea, diarrhea Musculoskeletal: denies: back pain, joint swelling, arthralgia Skin: denies: rash, lesions Psychiatric: denies: anxiety, depression Hematological/Lymphatic: denies: easy bruising ED Past Medical Hx - Past Medical History Previous Medical History?: Yes Hx Hypertension: Yes Hx Heart Attack/AMI: Yes Hx Congestive Heart Failure: Yes Hx Diabetes: No Hx GERD: Yes Hx Asthma: Yes Hx COPD: No - Surgical History Past Surgical History?: Yes Hx Coronary Stent: Yes - Social History Smoking Status: Never Smoker Substance Use Type: None - Medications Home Medications: Home Medications Medication Instructions Recorded Confirmed Last Taken Type ALBUTEROL Inhaler(NF) [VENTOLIN 1 puff IH Q4HRT PRN #1 inha 11/12/18 12/01/18 Unknown Rx Inhaler(NF)] Amlodipine Besylate [Norvasc] 10 mg PO DAILY #30 tablet 12/06/18 Unknown Rx Aspirin EC [Halfprin EC] 81 mg PO QDAY #30 tablet 12/06/18 Unknown Rx Bumetanide [Bumex 1 mg tab] 1 mg PO 0600,1800 #60 tablet 12/06/18 Unknown Rx Carvedilol [Coreg] 12.5 mg PO BID #60 tablet 12/06/18 Unknown Rx Losartan [Cozaar] 100 mg PO QDAY #30 tablet 12/06/18 Unknown Rx Spironolactone [Aldactone] 25 mg PO QDAY #30 tablet 12/06/18 Unknown Rx ED Physical Exam - General Limitations: Physical Limitation - Head Head exam: Present: atraumatic, normocephalic - Eye Eye exam: Present: normal appearance - ENT ENT exam: Present: mucous membranes moist - Neck Neck exam: Present: normal inspection - Respiratory Respiratory exam: Present: normal lung sounds bilaterally. Absent: wheezes, rales, rhonchi, chest wall tenderness - Cardiovascular Cardiovascular Exam: Present: irregular rhythm, normal heart sounds, other (bilateral LE 3+ pitting edema noted) - GI/Abdominal GI/Abdominal exam: Present: distended, normal bowel sounds. Absent: tenderness, guarding, rebound - Rectal Rectal exam: Present: deferred - Extremities Exam Extremities exam: Present: full ROM, pedal edema - Neurological Exam Neurological exam: Present: alert, oriented X3 (however has difficulty answering questions) - Psychiatric Psychiatric exam: Present: normal affect - Skin Skin exam: Present: warm, dry, intact, normal color. Absent: rash ED Course Vital Signs 06/01/19 06/01/19 06/01/19 09:03 09:31 10:01 Temperature 97.6 F Pulse Rate 76 119 H Respiratory 24 20 Rate Blood Pressure 127/93 131/109 129/99 O2 Sat by Pulse 89 100 96 Oximetry YING score - Ying Score Age > 65: (0) No Aspirin use within the Past 7 Days: (0) No 3 or more CAD Risk Factors: (1) Yes 2 or more Angina events in past 24 hrs: (1) Yes Known CAD with more than 50% Stenosis: (0) No Elevated Cardiac Markers: (0) No ST Deviation Greater than 0.5mm: (0) No YING Score: 2 ED Medical Decision Making - Lab Data Result diagrams: 06/01/19 09:38 06/01/19 09:38 Lab Results 06/01/19 06/01/19 06/01/19 Range/Units 09:38 09:38 09:38 WBC 9.0 (4.5-11.0) K/mm3 RBC 4.73 (3.65-5.03) M/mm3 Hgb 13.9 (11.8-15.2) gm/dl Hct 43.0 (35.5-45.6) % MCV 91 (84-94) fl MCH 30 (28-32) pg MCHC 32 (32-34) % RDW 15.4 H (13.2-15.2) % Plt Count 230 (140-440) K/mm3 Lymph % (Auto) 22.1 (13.4-35.0) % Douglas % (Auto) 8.2 H (0.0-7.3) % Eos % (Auto) 0.2 (0.0-4.3) % Baso % (Auto) 0.3 (0.0-1.8) % Lymph # 2.0 (1.2-5.4) K/mm3 Douglas # 0.7 (0.0-0.8) K/mm3 Eos # 0.0 (0.0-0.4) K/mm3 Baso # 0.0 (0.0-0.1) K/mm3 Seg Neutrophils % 69.2 (40.0-70.0) % Seg Neutrophils # 6.2 (1.8-7.7) K/mm3 Sodium 143 (137-145) mmol/L Potassium 4.7 (3.6-5.0) mmol/L Chloride 103.3 (98-107) mmol/L Carbon Dioxide 27 (22-30) mmol/L Anion Gap 17 mmol/L BUN 39 H (9-20) mg/dL Creatinine 1.5 (0.8-1.5) mg/dL Estimated GFR 58 ml/min BUN/Creatinine Ratio 26 % Glucose 129 H (75-100) mg/dL Calcium 8.5 (8.4-10.2) mg/dL Ammonia (25-60) umol/L Troponin T 0.043 H (0.00-0.029) ng/mL NT-Pro-B Natriuret Pep 5194 H (0-900) pg/mL TSH (0.270-4.200) mlU/mL 06/01/19 06/01/19 Range/Units 09:42 09:42 WBC (4.5-11.0) K/mm3 RBC (3.65-5.03) M/mm3 Hgb (11.8-15.2) gm/dl Hct (35.5-45.6) % MCV (84-94) fl MCH (28-32) pg MCHC (32-34) % RDW (13.2-15.2) % Plt Count (140-440) K/mm3 Lymph % (Auto) (13.4-35.0) % Douglas % (Auto) (0.0-7.3) % Eos % (Auto) (0.0-4.3) % Baso % (Auto) (0.0-1.8) % Lymph # (1.2-5.4) K/mm3 Douglas # (0.0-0.8) K/mm3 Eos # (0.0-0.4) K/mm3 Baso # (0.0-0.1) K/mm3 Seg Neutrophils % (40.0-70.0) % Seg Neutrophils # (1.8-7.7) K/mm3 Sodium (137-145) mmol/L Potassium (3.6-5.0) mmol/L Chloride (98-107) mmol/L Carbon Dioxide (22-30) mmol/L Anion Gap mmol/L BUN (9-20) mg/dL Creatinine (0.8-1.5) mg/dL Estimated GFR ml/min BUN/Creatinine Ratio % Glucose (75-100) mg/dL Calcium (8.4-10.2) mg/dL Ammonia 41.0 (25-60) umol/L Troponin T (0.00-0.029) ng/mL NT-Pro-B Natriuret Pep (0-900) pg/mL TSH 2.340 (0.270-4.200) mlU/mL - EKG Data Interpretation: other (Afib without RVR) - Medical Decision Making EKG shows new onset A. fib with heart rate of 105. Patient satting at 97% on 2 L nasal cannula. CBC WNL. Creatinine elevated at 1.5. Troponin elevated at 0.043. Patient's heart rate initially 105, however noted to increase and remained around 135. Cardizem 10 mg orders with Cardizem drip. Patient also placed on heparin and Lasix. Patient to be admitted to hospital for further evaluation and treatment. Critical care attestation.: If time is entered above; I have spent that time in minutes in the direct care of this critically ill patient, excluding procedure time. ED Disposition Clinical Impression: New onset a-fib, Acute on chronic diastolic CHF (congestive heart failure), Dyspnea, Elevated troponin Disposition: OP ADMIT IP TO THIS HOSP Is pt being admited?: Yes Condition: Stable Referrals: PRIMARY CARE, [Primary Care Provider] - 3-5 Days
[2019-06-01 09:55] LABS: Basophils % (Auto) 0.3 % (0.0-1.8); Eosinophils % (Auto) 0.2 % (0.0-4.3); Hemoglobin 13.9 gm/dl (11.8-15.2); Lymphocytes % (Auto) 22.1 % (13.4-35.0); Mean Corpuscular HGB Conc 32 % (32-34); Mean Corpuscular Volume 91 fl (84-94); Monocytes # (Auto) 0.7 K/mm3 (0.0-0.8); Monocytes % (Auto) 8.2 % (0.0-7.3); Platelet Count 230 K/mm3 (140-440); Red Blood Count 4.73 M/mm3 (3.65-5.03); Red Cell Distribution Width 15.4 % (13.2-15.2)
[2019-06-01] MEDS ORDERED: CARDIZEM IV ONE (10:06)
[2019-06-01 10:12] LABS: Calcium 8.5 mg/dL (8.4-10.2)
--- NOTE | 2019-06-01 10:28 | Cat Scan Report ---
CT HEAD WITHOUT CONTRAST INDICATION / CLINICAL INFORMATION: confusion. TECHNIQUE: All CT scans at this location are performed using CT dose reduction for ALARA by means of automated e xposure control. COMPARISON: None available. FINDINGS: HEMORRHAGE: None. EXTRA-AXIAL SPACES: Normal in size and morphology for the patient's age. VENTRICULAR SYSTEM: Normal in size and morphology for the patient's age. CEREBRAL PARENCHYMA: Mild white matter hypodensities likely represent microangiopathy. No acute lux torial infarct identified. MIDLINE SHIFT OR HERNIATION: None. CEREBELLUM / BRAINSTEM: No significant abnormality. ORBITS: Normal as visualized. SOFT TISSUES of HEAD: No significant abnormality. CALVARIUM: No significant abnormality. PARANASAL SINUSES / MASTOID AIR CELLS: Normal as visualized. ADDITIONAL FINDINGS: None. IMPRESSION: 1. No acute intracranial abnormality. Signer Name: Akilah Carlin MD Signed: 06/01/2019 10:24 AM Workstation Name: [id number]
--- NOTE | 2019-06-01 10:31 | XRay Report ---
CHEST 1 VIEW 06/01/2019 10:08 AM INDICATION / CLINICAL INFORMATION: Chest Pain. COMPARISON: 12/01/18 FINDINGS: SUPPORT DEVICES: None. HEART / MEDIASTINUM: Heart is enlarged but stable. Mild pulmonary venous hypertension. LUNGS / PLEURA: No significant pulmonary or pleural abnormality. No pneumothorax. ADDITIONAL FINDINGS: No significant additional findings. IMPRESSION: 1. Cardiomegaly with pulmonary venous hypertension but no overt pulmonary edema. No significant miranda e. Signer Name: Akilah Carlin MD Signed: 06/01/2019 10:26 AM Workstation Name: [id number]
[2019-06-01] MEDS ORDERED: LASIX IV ONE (10:33)
[2019-06-01] MEDS ORDERED: HEPARIN 10,000 UNITS/10 ML IV ONE (10:35)
--- NOTE | 2019-06-01 10:55 | History and Physical Report ---
History of Present Illness Date of examination: 06/01/19 Date of admission: 06/01/19 Chief complaint: shortness of breath and swelling of both feet History of present illness: 59-year-old -[place]ian male patient with history of CHF, [place], and uncontrolled hypertension presented to the emergency Department on account of shortness of breath for months worsening for the past few days. Patient also states that he has swelling in his legs that is coming up into his abdomen. He denies any chest pain. He states he is taking spironolactone and amlodipine. Patient is unable to state who is primary care physician is. He appears confused when attempting to answer questions. Patient is a poor historian. At the emergency department, chest xray shows evidence of cardiomegaly with pulmonary venous hypertension. ProBNP was found to be 5194. Had minimally el evated troponin T of 0.043. Admission was therefore requested. Past History Past Medical History: acute [place], GERD, heart failure, hypertension, hyperlipidemia Past Surgical History: PTCA Social history: denies: smoking Family history: hypertension Medications and Allergies Allergies Allergy/AdvReac Type Severity Reaction Status Date / Time No Known Allergies Allergy Verified 12/01/18 09:06 Home Medications Medication Instructions Recorded Confirmed Last Taken Type ALBUTEROL Inhaler(NF) [VENTOLIN 1 puff IH Q4HRT PRN #1 inha 11/12/18 06/01/19 1 Day Ago Rx Inhaler(NF)] ~05/31/19 Amlodipine Besylate [Norvasc] 10 mg PO DAILY #30 tablet 12/06/18 06/01/19 1 Day Ago Rx ~05/31/19 10 mg Aspirin EC [Halfprin EC] 81 mg PO QDAY #30 tablet 12/06/18 06/01/19 1 Day Ago Rx ~05/31/19 Bumetanide [Bumex 1 mg tab] 1 mg PO 0600,1800 #60 tablet 12/06/18 06/01/19 Unknown Rx Carvedilol [Coreg] 12.5 mg PO BID #60 tablet 12/06/18 06/01/19 Unknown Rx Losartan [Cozaar] 100 mg PO QDAY #30 tablet 12/06/18 06/01/19 1 Day Ago Rx ~05/31/19 Spironolactone [Aldactone] 25 mg PO QDAY #30 tablet 12/06/18 06/01/19 1 Day Ago Rx ~05/31/19 Active Meds: Active Medications Diltiazem HCl (Cardizem/D5w 100mg/100ml) 100 mg in 100 mls @ 5 mls/hr IV TITR TASHI; Protocol Heparin Sodium/Sodium Chloride (Heparin/ 0.45% Nacl-25,000 Unit/500 Ml) 25,000 unit in 500 mls @ 30 mls/hr IV TITR TASHI; Protocol Review of Systems Constitutional: weight gain, no weight loss, no fever, no chills Ears, nose, mouth and throat: no ear pain, no ear discharge, no tinnitis, no decreased hearing, no nose pain Cardiovascular: shortness of breath, no orthopnea Respiratory: shortness of breath, dyspnea on exertion, no cough, no cough with sputum Gastrointestinal: no nausea, no vomiting, no diarrhea, no constipation Genitourinary Male: no hematuria, no flank pain, no discharge Musculoskeletal: no neck pain, no shooting arm pain Integumentary: no pruritis, no redness, no sores Neurological: no transient paralysis, no paralysis, no weakness, no parathesias Psychiatric: no anxiety, no memory loss Endocrine: no cold intolerance, no heat intolerance, no polyphagia, no excessive thirst, no polydipsia Hematologic/Lymphatic: no easy bruising, no easy bleeding Allergic/Immunologic: no urticaria Exam - Physical Exam Narrative exam: Constitutional: Well-nourished well-developed. lethagic In no distress Head: Normocephalic atraumatic Eyes: Pupils are equal round and reactive to light Nose: No enlarged turbinates, no septal deviation. Mouth: Moist mucous membranes. Neck: Supple no thyromegaly. No bruit. No JVD Heart: Regular rate and rhythm, S1-S2 normal. No rubs murmurs or gallop Lungs: Clear to auscultation bilaterally. no rales or rhonchi Abdomen: Soft, nontender. Bowel sound are present. Extremities: No edema, no cyanosis, no clubbing. Neuro: Alert oriented Oriented x3. No focal sensory or motor deficit. Skin: No rashes or hyperpigmented spots Musculoskeletal system: No joint pain or swelling Hematological: No petechia or subcutanous hemorrhages. Immunological: No multiple septic spots on the skin Lymphatic: No generalized lymphadenopathy Psychiatry: Euthymic. Calm. - Constitutional Vitals: Temp Pulse Resp BP Pulse Ox 97.6 F 115 H 20 111/87 96 06/01/19 09:03 06/01/19 10:46 06/01/19 09:31 06/01/19 10:46 06/01/19 10:01 Results - Labs CBC & Chem 7: 06/02/19 03:36 06/02/19 03:36 Labs: Abnormal lab results 06/01/19 06/01/19 06/01/19 Range/Units 09:38 09:38 09:38 RDW 15.4 H (13.2-15.2) % Woods % (Auto) 8.2 H (0.0-7.3) % BUN 39 H (9-20) mg/dL Glucose 129 H (75-100) mg/dL Troponin T 0.043 H (0.00-0.029) ng/mL NT-Pro-B Natriuret Pep 5194 H (0-900) pg/mL Assessment and Plan 59-year-old -[place] male patient with history of CHF, [place], and uncontrolled hypertension presented to the emergency Department on account of shortness of breath for months worsening for the past few days. Patient also states that he has swelling in his legs that is coming up into his abdomen. He denies any chest pain. He states he is taking spironolactone and amlodipine. Patient is unable to state who is primary care physician is. He appears confused when attempting to answer questions. Patient is a poor historian. At the emergency department, chest xray shows evidence of cardiomegaly with pulmonary venous hypertension. ProBNP was found to be 5194. Had minimally elevated troponin T of 0.043. Admission was therefore requested. Afib with RVR cardiazem drip heparin drip Lipid panel and TSH Cardiology consult Acute on chronic combined systolic and diastolic heart failure with EF of 20-25% as of 12/01/18 - commence IV Lasix, BB, aldactone and ACEI -Cardiology consulted Elevated troponin -Probably secondary to demand ischemia due to the acute on chronic heart failure -Troponin level trended down Asthma -No acute excaerbation -on PRN neb tx HNyperglycemia from prediabetes Obatian A1c. Was 6.2% as of 12/06 -Diet control Cosistent CHO diet - H/o hepatic hemangiomas stable supportive care - DVT and GI ppx with lovenox and Pepcid -Disposition: per hospital course CCT: 40 mins
[2019-06-01] MEDS ORDERED: HEPARIN/ 0.45% NACL-25,000 UNIT/500 ML 25,000 UNIT/500 ML BAG IV SCH (11:00)
[2019-06-01] MEDS ORDERED: CARDIZEM/D5W 100MG/100ML 100 MG/100 ML BAG IV SCH (11:00)
[2019-06-01 11:07] LABS: INR 1.17 (0.87-1.13)
[2019-06-01 11:08] LABS: Partial Thromboplastin Time 26.9 Sec. (24.2-36.6)
[2019-06-01] MEDS ORDERED: PROAIR IH PRN (11:12)
[2019-06-01] MEDS ORDERED: PROVENTIL IH PRN (11:24)
[2019-06-01] MEDS ORDERED: HEPARIN 10,000 UNITS/10 ML ONE (11:38)
[2019-06-01] MEDS ORDERED: LASIX ONE (11:38)
[2019-06-01] MEDS ORDERED: ZESTRIL PO SCH (12:00)
[2019-06-01] MEDS ORDERED: K-DUR PO SCH (12:00)
[2019-06-01] MEDS ORDERED: ALDACTONE PO SCH (12:00)
[2019-06-01] MEDS ORDERED: HEPARIN/ 0.45% NACL-25,000 UNIT/500 ML 25,000 UNIT/500 ML BAG ONE (12:10)
[2019-06-01] MEDS ORDERED: K-DUR PO ONE (12:38)
[2019-06-01] MEDS ORDERED: LOPRESSOR ONE (12:38)
[2019-06-01] MEDS ORDERED: ZESTRIL ONE (12:39)
[2019-06-01 12:44] LABS: Amphetamine Screen,Urine PRESUMPTIVE NEGATIVE; Benzodiazepines Screen,Urine PRESUMPTIVE NEGATIVE; Cannabinoid Screen,Urine PRESUMPTIVE NEGATIVE; Cocaine Screen,Urine PRESUMPTIVE NEGATIVE; Methadone Screen,Urine PRESUMPTIVE NEGATIVE; Opiate Screen,Urine PRESUMPTIVE NEGATIVE
[2019-06-01] MEDS: LOPRESSOR PO SCH ×2 (12:59→21:36)
[2019-06-01] MEDS ORDERED: BUMEX PO SCH (18:00)
[2019-06-01] MEDS ORDERED: HALDOL IV PRN (18:39)
--- NOTE | 2019-06-01 20:33 | Consultation ---
History of Present Illness Consult date: 06/01/19 Requesting physician: RACHELLE DAVIS Reason for consult: other (Afib, CHF) History of present illness: 59 yo admitted with increased SOB and LE edema. Found be in afib with RVR, placed on diltiazem drip and heparin, admitted to ICU. He is a very poor historian. Denies fevers, chills, chest pain, cough, sputum, hemoptysis. Active Medications Albuterol (Proventil) 2.5 mg IH Q4HRT PRN PRN Reason: Shortness Of Breath Aspirin (Aspirin) 325 mg PO QDAY [facility] Bumetanide (Bumex) 1 mg PO 0600,1800 [facility] Last Admin: 06/01/19 17:00 Dose: 1 mg Documented by: Diltiazem HCl (Cardizem/D5w 100mg/100ml) 100 mg in 100 mls @ 5 mls/hr IV TITR TASHI; Protocol Last Admin: 06/01/19 11:45 Dose: 5 mg/hr, 5 mls/hr Documented by: Heparin Sodium/Sodium Chloride (Heparin/ 0.45% Nacl-25,000 Unit/500 Ml) 25,000 unit in 500 mls @ 30 mls/hr IV TITR TASHI; Protocol Last Admin: 06/01/19 12:20 Dose: 1,500 units/hr, 30 mls/hr Documented by: Lisinopril (Zestril) 5 mg PO QDAY [facility] Last Admin: 06/01/19 13:00 Dose: 5 mg Documented by: Metoprolol Tartrate (Lopressor) 25 mg PO BID [facility] Last Admin: 06/01/19 12:59 Dose: 25 mg Documented by: Spironolactone (Aldactone) 12.5 mg PO QDAY [facility] Last Admin: 06/01/19 12:55 Dose: 12.5 mg Documented by: Spironolactone (Aldactone) 25 mg PO QDAY [facility] Past History Past Medical History: acute [place], GERD, heart failure, hypertension, hyperlipidemia Past Surgical History: PTCA Social history: IV drug use. denies: smoking, alcohol abuse, prescription drug abuse Family history: hypertension Medications and Allergies Allergies Allergy/AdvReac Type Severity Reaction Status Date / Time No Known Allergies Allergy Verified 12/01/18 09:06 Home Medications Medication Instructions Recorded Confirmed Last Taken Type ALBUTEROL Inhaler(NF) [VENTOLIN 1 puff IH Q4HRT PRN #1 inha 11/12/18 06/01/19 1 Day Ago Rx Inhaler(NF)] ~05/31/19 Amlodipine Besylate [Norvasc] 10 mg PO DAILY #30 tablet 12/06/18 06/01/19 1 Day Ago Rx ~05/31/19 10 mg Aspirin EC [Halfprin EC] 81 mg PO QDAY #30 tablet 12/06/18 06/01/19 1 Day Ago Rx ~05/31/19 Bumetanide [Bumex 1 mg tab] 1 mg PO 0600,1800 #60 tablet 12/06/18 06/01/19 Unknown Rx Carvedilol [Coreg] 12.5 mg PO BID #60 tablet 12/06/18 06/01/19 Unknown Rx Losartan [Cozaar] 100 mg PO QDAY #30 tablet 12/06/18 06/01/19 1 Day Ago Rx ~05/31/19 Spironolactone [Aldactone] 25 mg PO QDAY #30 tablet 12/06/18 06/01/19 1 Day Ago Rx ~05/31/19 Active Meds: Active Medications Albuterol (Proventil) 2.5 mg IH Q4HRT PRN PRN Reason: Shortness Of Breath Aspirin (Aspirin) 325 mg PO QDAY [facility] Bumetanide (Bumex) 1 mg PO 0600,1800 [facility] Last Admin: 06/01/19 17:00 Dose: 1 mg Documented by: Diltiazem HCl (Cardizem/D5w 100mg/100ml) 100 mg in 100 mls @ 5 mls/hr IV TITR TASHI; Protocol Last Admin: 06/01/19 11:45 Dose: 5 mg/hr, 5 mls/hr Documented by: Heparin Sodium/Sodium Chloride (Heparin/ 0.45% Nacl-25,000 Unit/500 Ml) 25,000 unit in 500 mls @ 30 mls/hr IV TITR TASHI; Protocol Last Admin: 06/01/19 12:20 Dose: 1,500 units/hr, 30 mls/hr Documented by: Lisinopril (Zestril) 5 mg PO QDAY TASHI Last Admin: 06/01/19 13:00 Dose: 5 mg Documented by: Metoprolol Tartrate (Lopressor) 25 mg PO BID [facility] Last Admin: 06/01/19 12:59 Dose: 25 mg Documented by: Spironolactone (Aldactone) 12.5 mg PO QDAY [facility] Last Admin: 06/01/19 12:55 Dose: 12.5 mg Documented by: Spironolactone (Aldactone) 25 mg PO QDAY [facility] Review of Systems All systems: negative Physical Examination Vital signs: Vital Signs Temp Pulse Resp BP Pulse Ox 97.6 F 76 24 127/93 89 06/01/19 09:03 06/01/19 09:03 06/01/19 09:03 06/01/19 09:03 06/01/19 09:03 General appearance: no acute distress, alert, other (obese) Eyes: non-icteric ENT: oropharynx moist Neck: supple Effort: normal Ascultation: Bilateral: diminished breath sounds Cardiovascular: irregular rhythm Gastrointestinal: normoactive bowel sounds, soft, non-tender, non-distended Integumentary: normal Extremities: no cyanosis, edema (2+ bilateral LE edema) Musculoskeletal: no deformities normal mental status, non-focal exam, pupils equal and round, CN II-XII normal mood appropriate, affect normal Results - Laboratory Findings CBC and BMP: 06/01/19 09:38 06/01/19 09:38 PT/INR, D-dimer PT 14.6 Sec. (12.2-14.9) 06/01/19 10:51 INR 1.17 (0.87-1.13) H 06/01/19 10:51 Abnormal lab findings: Abnormal Labs 06/01/19 06/01/19 06/01/19 09:38 09:38 09:38 RDW 15.4 H [place] % (Auto) 8.2 H INR BUN 39 H Glucose 129 H Troponin T 0.043 H NT-Pro-B Natriuret Pep 5194 H Triglycerides 165 H HDL Cholesterol 27 L 06/01/19 10:51 RDW [place] % (Auto) INR 1.17 H BUN Glucose Troponin T NT-Pro-B Natriuret Pep Triglycerides HDL Cholesterol - Diagnostic Findings Chest x-ray: report reviewed, image reviewed (cardiomegaly, probably worse; congestion similar) Assessment and Plan Imp: 1. Afib with RVR 2. NICMP 3. A/C systolic CHF 4. Obesity 5. Probable JONATHON Rec: 1. Rate control; cont. Dilt drip; consult cardiology 2. Lasix IV 3. Heparin drip 4. Weight loss 5. Outpatient PSG Plan of care reviewed w/ patient, he understands/agrees
[2019-06-02 04:13] LABS: Basophils % (Auto) 0.4 % (0.0-1.8); Eosinophils % (Auto) 0.4 % (0.0-4.3); Hemoglobin 13.6 gm/dl (11.8-15.2); Lymphocytes # (Auto) 2.5 K/mm3 (1.2-5.4); Lymphocytes % (Auto) 26.1 % (13.4-35.0); Mean Corpuscular HGB Conc 32 % (32-34); Mean Corpuscular Volume 91 fl (84-94); Monocytes % (Auto) 10.2 % (0.0-7.3); Platelet Count 203 K/mm3 (140-440); Red Blood Count 4.64 M/mm3 (3.65-5.03); Red Cell Distribution Width 15.5 % (13.2-15.2)
[2019-06-02 04:28] LABS: Alanine Aminotransferase 139 units/L (7-56); Albumin 3.4 g/dL (3.9-5); BUN/Creatinine Ratio 22; Blood Urea Nitrogen 31 mg/dL (9-20); Calcium 7.9 mg/dL (8.4-10.2); Hemolysis Index 23
[2019-06-02] MEDS: LASIX IV SCH ×2 (06:29→17:06)
--- NOTE | 2019-06-02 08:16 | Progress Note ---
Assessment and Plan 59-year-old -[place] male patient with history of CHF, PR, and uncontrolled hypertension presented to the emergency Department on account of shortness of breath for months worsening for the past few days. Patient also states that he has swelling in his legs that is coming up into his abdomen. He denies any chest pain. He states he is taking spironolactone and amlodipine. Patient is unable to state who is primary care physician is. He appears confused when attempting to answer questions. Patient is a poor historian. At the emergency department, chest xray shows evidence of cardiomegaly with pulmonary venous hypertension. ProBNP was found to be 5194. Had minimally elevated troponin T of 0.043. ECHO of 12/01/18 showed EF of 20-25%. Admission was requested for further evaluation and management. Afib with RVR - Now rate controlled cardiazem drip to be weaned off ECHO heparin drip Lipid panel and TSH Cardiology consult Acute on chronic combined systolic and diastolic heart failure with EF of 20-25% as of 12/01/18 - commence IV Lasix, BB, aldactone and ACEI -Cardiology consulted Elevated troponin -Probably secondary to demand ischemia due to the acute on chronic heart failure -Troponin level trended down Asthma -No acute excaerbation -on PRN neb tx HNyperglycemia from prediabetes Obatian A1c. Was 6.2% as of 12/06 -Diet control Cosistent CHO diet - H/o hepatic hemangiomas stable supportive care - DVT and GI ppx with lovenox and Pepcid -Disposition: per hospital course CCT: 40 mins Subjective Date of service: 06/02/19 Principal diagnosis: acute on chronic systolic heart failure, NICMP, paroxysmal atrial fib, Interval history: Patient seen and examined. Ming this morning. Still complaining of swelling of both lower extremities and abdomen. Denies any chest pain. Has orthopnea. No fever. No cough. Discussed with patient nurse. No overnight events reported to me. Objective - Exam Narrative Exam: Constitutional: Well-nourished well-developed. lethagic Head: Normocephalic atraumatic Eyes: Pupils are equal round and reactive to light Nose: No enlarged turbinates, no septal deviation. Mouth: Moist mucous membranes. Neck: Supple no thyromegaly. No bruit. No JVD Heart: Regular rate and rhythm, S1-S2 normal. No rubs murmurs or gallop Lungs: Clear to auscultation bilaterally. no rales or rhonchi Abdomen: Soft, nontender. Bowel sound are present. Extremities: 1+ edema, no cyanosis, no clubbing. Neuro: Alert oriented Oriented x3. No focal sensory or motor deficit. Skin: No rashes or hyperpigmented spots Musculoskeletal system: No joint pain or swelling Hematological: No petechia or subcutanous hemorrhages. Immunological: No multiple septic spots on the skin Lymphatic: No generalized lymphadenopathy Psychiatry: Euthymic. Calm. - Constitutional Vitals: Vital Signs - 12hr 06/01/19 06/01/19 06/01/19 20:21 20:30 20:41 Temperature Pulse Rate 104 H 91 H 84 Pulse Rate [ From Monitor] Respiratory 21 25 H 21 Rate Blood Pressure 147/130 117/76 117/76 O2 Sat by Pulse 96 99 99 Oximetry 06/01/19 06/01/19 06/01/19 20:51 21:00 21:11 Temperature Pulse Rate 99 H 78 91 H Pulse Rate [ From Monitor] Respiratory 30 H 16 16 Rate Blood Pressure 108/75 97/78 97/78 O2 Sat by Pulse 98 98 96 Oximetry 06/01/19 06/01/19 06/01/19 21:21 21:31 21:36 Temperature Pulse Rate 93 H 92 H 103 H Pulse Rate [ From Monitor] Respiratory 20 24 Rate Blood Pressure 104/82 106/80 106/80 O2 Sat by Pulse 96 97 Oximetry 06/01/19 06/01/19 06/01/19 21:41 21:51 22:00 Temperature Pulse Rate 80 77 79 Pulse Rate [ From Monitor] Respiratory 17 16 16 Rate Blood Pressure 106/80 106/84 103/75 O2 Sat by Pulse 97 97 97 Oximetry 06/01/19 06/01/19 06/01/19 22:11 22:21 22:30 Temperature Pulse Rate 77 78 82 Pulse Rate [ From Monitor] Respiratory 14 17 18 Rate Blood Pressure 103/75 106/84 97/67 O2 Sat by Pulse 97 97 97 Oximetry 06/01/19 06/01/19 06/01/19 22:41 22:51 23:00 Temperature Pulse Rate 82 87 80 Pulse Rate [ From Monitor] Respiratory 18 19 19 Rate Blood Pressure 97/67 91/66 100/73 O2 Sat by Pulse 97 97 97 Oximetry 06/01/19 06/01/19 06/01/19 23:11 23:17 23:21 Temperature Pulse Rate 83 77 84 Pulse Rate [ From Monitor] Respiratory 14 14 14 Rate Blood Pressure 100/73 110/77 110/77 O2 Sat by Pulse 100 98 98 Oximetry 06/01/19 06/01/19 06/01/19 23:30 23:41 23:49 Temperature 98.6 F Pulse Rate 82 77 Pulse Rate [ From Monitor] Respiratory 15 17 Rate Blood Pressure 110/84 110/84 O2 Sat by Pulse 97 98 Oximetry 06/01/19 06/02/19 06/02/19 23:51 00:00 00:11 Temperature Pulse Rate 86 92 H 87 Pulse Rate [ 90 From Monitor] Respiratory 20 22 28 H Rate Blood Pressure 99/71 105/78 105/78 O2 Sat by Pulse 99 98 99 Oximetry 06/02/19 06/02/19 06/02/19 00:21 00:31 00:41 Temperature Pulse Rate 86 89 81 Pulse Rate [ From Monitor] Respiratory 24 25 H 21 Rate Blood Pressure 104/63 105/66 105/66 O2 Sat by Pulse 100 99 99 Oximetry 06/02/19 06/02/19 06/02/19 00:51 01:00 01:11 Temperature Pulse Rate 80 89 76 Pulse Rate [ From Monitor] Respiratory 22 24 15 Rate Blood Pressure 104/63 103/73 103/73 O2 Sat by Pulse 100 98 95 Oximetry 06/02/19 06/02/19 06/02/19 01:21 01:31 01:41 Temperature Pulse Rate 80 77 83 Pulse Rate [ From Monitor] Respiratory 20 20 26 H Rate Blood Pressure 94/69 103/78 103/78 O2 Sat by Pulse 97 98 99 Oximetry 06/02/19 06/02/19 06/02/19 01:51 02:01 02:11 Temperature Pulse Rate 99 H 93 H 79 Pulse Rate [ From Monitor] Respiratory 29 H 26 H 15 Rate Blood Pressure 103/78 121/89 121/89 O2 Sat by Pulse 75 L 99 99 Oximetry 06/02/19 06/02/19 06/02/19 02:21 02:30 02:41 Temperature Pulse Rate 88 77 94 H Pulse Rate [ From Monitor] Respiratory 26 H 18 35 H Rate Blood Pressure 95/61 97/66 97/66 O2 Sat by Pulse 99 99 99 Oximetry 06/02/19 06/02/19 06/02/19 02:51 03:01 03:11 Temperature Pulse Rate 108 H 94 H 81 Pulse Rate [ From Monitor] Respiratory 35 H 23 22 Rate Blood Pressure 102/68 102/71 102/71 O2 Sat by Pulse 100 100 100 Oximetry 06/02/19 06/02/19 06/02/19 03:21 03:31 03:41 Temperature Pulse Rate 102 H 86 81 Pulse Rate [ From Monitor] Respiratory 28 H 21 24 Rate Blood Pressure 110/61 115/68 115/68 O2 Sat by Pulse 99 100 99 Oximetry 06/02/19 06/02/19 06/02/19 03:51 04:00 04:11 Temperature 98.5 F Pulse Rate 84 85 78 Pulse Rate [ 86 From Monitor] Respiratory 16 17 14 Rate Blood Pressure 114/84 109/75 109/75 O2 Sat by Pulse 100 98 99 Oximetry 06/02/19 06/02/19 06/02/19 04:21 04:31 04:41 Temperature Pulse Rate 80 84 85 Pulse Rate [ From Monitor] Respiratory 14 17 22 Rate Blood Pressure 117/66 96/66 96/66 O2 Sat by Pulse 100 95 94 Oximetry 06/02/19 06/02/19 06/02/19 04:51 05:01 05:11 Temperature Pulse Rate 95 H 96 H 94 H Pulse Rate [ From Monitor] Respiratory 20 26 H 22 Rate Blood Pressure 120/83 89/61 89/61 O2 Sat by Pulse 99 99 99 Oximetry 06/02/19 06/02/19 06/02/19 05:21 05:31 05:41 Temperature Pulse Rate 88 92 H 81 Pulse Rate [ From Monitor] Respiratory 21 24 19 Rate Blood Pressure 94/69 100/64 100/64 O2 Sat by Pulse 98 98 100 Oximetry 06/02/19 06/02/19 06/02/19 05:51 06:01 06:11 Temperature Pulse Rate 84 72 94 H Pulse Rate [ From Monitor] Respiratory 14 18 18 Rate Blood Pressure 109/76 113/75 113/75 O2 Sat by Pulse 99 99 99 Oximetry 06/02/19 06/02/19 06/02/19 06:21 06:31 06:41 Temperature Pulse Rate 99 H 95 H 84 Pulse Rate [ From Monitor] Respiratory 17 26 H 21 Rate Blood Pressure 112/55 112/68 112/68 O2 Sat by Pulse 99 95 99 Oximetry 06/02/19 06/02/19 06:51 07:00 Temperature Pulse Rate 81 79 Pulse Rate [ From Monitor] Respiratory 17 17 Rate Blood Pressure 118/77 101/82 O2 Sat by Pulse 99 98 Oximetry - Labs CBC & Chem 7: 06/02/19 03:36 06/02/19 03:36 Labs: Abnormal lab results 06/01/19 06/01/19 06/01/19 Range/Units 09:38 09:38 09:38 RDW 15.4 H (13.2-15.2) % [place] % (Auto) 8.2 H (0.0-7.3) % [place] # (0.0-0.8) K/mm3 INR (0.87-1.13) Heparin Anti-Xa Level (0.3-0.7) U.I./ml BUN 39 H (9-20) mg/dL Glucose 129 H (75-100) mg/dL Calcium (8.4-10.2) mg/dL AST (5-40) units/L ALT (7-56) units/L Troponin T 0.043 H (0.00-0.029) ng/mL NT-Pro-B Natriuret Pep 5194 H (0-900) pg/mL Total Protein (6.3-8.2) g/dL Albumin (3.9-5) g/dL Triglycerides 165 H (2-149) mg/dL HDL Cholesterol 27 L (40-59) mg/dL 06/01/19 06/01/19 06/01/19 Range/Units 10:51 20:17 20:17 RDW (13.2-15.2) % [place] % (Auto) (0.0-7.3) % [place] # (0.0-0.8) K/mm3 INR 1.17 H (0.87-1.13) Heparin Anti-Xa Level 1.87 H (0.3-0.7) U.I./ml BUN (9-20) mg/dL Glucose (75-100) mg/dL Calcium (8.4-10.2) mg/dL AST (5-40) units/L ALT (7-56) units/L Troponin T 0.030 H (0.00-0.029) ng/mL NT-Pro-B Natriuret Pep (0-900) pg/mL Total Protein (6.3-8.2) g/dL Albumin (3.9-5) g/dL Triglycerides (2-149) mg/dL HDL Cholesterol (40-59) mg/dL 06/02/19 06/02/19 Range/Units 03:36 03:36 RDW 15.5 H (13.2-15.2) % [place] % (Auto) 10.2 H (0.0-7.3) % [place] # 1.0 H (0.0-0.8) K/mm3 INR (0.87-1.13) Heparin Anti-Xa Level (0.3-0.7) U.I./ml BUN 31 H (9-20) mg/dL Glucose 164 H (75-100) mg/dL Calcium 7.9 L (8.4-10.2) mg/dL AST 48 H (5-40) units/L ALT 139 H (7-56) units/L Troponin T (0.00-0.029) ng/mL NT-Pro-B Natriuret Pep (0-900) pg/mL Total Protein 6.1 L (6.3-8.2) g/dL Albumin 3.4 L (3.9-5) g/dL Triglycerides (2-149) mg/dL HDL Cholesterol (40-59) mg/dL
[2019-06-02] MEDS ORDERED: ASPIRIN PO SCH (10:00)
--- NOTE | 2019-06-02 12:44 | Consultation ---
History of Present Illness Consult date: 06/02/19 Consult reason: atrial fibrillation History of present illness: Patient is a 59-year old male with a history of chronic hypertension and nonischemic cardiomyopathy dating back to 2012. His latest cardiac workup was done at this hosptial November 2018. A stress thallium test showed no ischemia. An echocardiogram showed severe dilated cardiomyopathy, left ventricular ejection fraction 20-25%. Patient presented with complaints of shortness of breath, lower extremity edema, volume overload. An ECG done in the emergency department revealed rapid atrial fibrillation. This was treated with intravenous Diltiazem. Atrial fibrillation appears to be new onset. Patient denies history of arrhythmias. Cardiology consultation has been requested. Past History Past Medical History: acute NV, GERD, heart failure, hypertension, hyperlipidemia Past Surgical History: PTCA Social history: denies: smoking Family history: hypertension Medications and Allergies Allergies Allergy/AdvReac Type Severity Reaction Status Date / Time lisinopril [From Zestril] Allergy Coughs Verified 06/02/19 09:39 Home Medications Medication Instructions Recorded Confirmed Last Taken Type ALBUTEROL Inhaler(NF) [VENTOLIN 1 puff IH Q4HRT PRN #1 inha 11/12/18 06/01/19 1 Day Ago Rx Inhaler(NF)] ~05/31/19 Amlodipine Besylate [Norvasc] 10 mg PO DAILY #30 tablet 12/06/18 06/01/19 1 Day Ago Rx ~05/31/19 10 mg Aspirin EC [Halfprin EC] 81 mg PO QDAY #30 tablet 12/06/18 06/01/19 1 Day Ago Rx ~05/31/19 Bumetanide [Bumex 1 mg tab] 1 mg PO 0600,1800 #60 tablet 12/06/18 06/01/19 Unknown Rx Carvedilol [Coreg] 12.5 mg PO BID #60 tablet 12/06/18 06/01/19 Unknown Rx Losartan [Cozaar] 100 mg PO QDAY #30 tablet 12/06/18 06/01/19 1 Day Ago Rx ~05/31/19 Spironolactone [Aldactone] 25 mg PO QDAY #30 tablet 12/06/18 06/01/19 1 Day Ago Rx ~05/31/19 Active Meds: Active Medications Albuterol (Proventil) 2.5 mg IH Q4HRT PRN PRN Reason: Shortness Of Breath Aspirin (Aspirin) 325 mg PO QDAY TASHI Furosemide (Lasix) 40 mg IV 0600,1800 [facility] Last Admin: 06/02/19 06:29 Dose: 40 mg Documented by: Diltiazem HCl (Cardizem/D5w 100mg/100ml) 100 mg in 100 mls @ 2.5 mls/hr IV TITR TASHI; Protocol Last Titration: 06/01/19 23:08 Dose: 2.5 mg/hr, 2.5 mls/hr Documented by: Heparin Sodium/Sodium Chloride (Heparin/ 0.45% Nacl-25,000 Unit/500 Ml) 25,000 unit in 500 mls @ 30 mls/hr IV TITR TASHI; Protocol Last Titration: 06/01/19 23:21 Dose: 1,250 units/hr, 25 mls/hr Documented by: Metoprolol Tartrate (Lopressor) 25 mg PO BID TASHI Last Admin: 06/01/19 21:36 Dose: 25 mg Documented by: Spironolactone (Aldactone) 25 mg PO QDAY [facility] Physical Examination Vital Signs Temp Pulse Resp BP Pulse Ox 97.6 F 76 24 127/93 89 06/01/19 09:03 06/01/19 09:03 06/01/19 09:03 06/01/19 09:03 06/01/19 09:03 General appearance: no acute distress HEENT: Positive: PERRL Neck: Positive: trachea midline Cardiac: Positive: irregularly irregular Lungs: Positive: Decreased Breath Sounds Neuro: Positive: Grossly Intact Extremities: Present: edema Results 06/02/19 03:36 06/02/19 03:36 Cardiac Enzymes 06/02/19 Range/Units 03:36 AST 48 H (5-40) units/L CBC 06/02/19 Range/Units 03:36 WBC 9.6 (4.5-11.0) K/mm3 RBC 4.64 (3.65-5.03) M/mm3 Hgb 13.6 (11.8-15.2) gm/dl Hct 42.0 (35.5-45.6) % Plt Count 203 (140-440) K/mm3 Lymph # 2.5 (1.2-5.4) K/mm3 [place] # 1.0 H (0.0-0.8) K/mm3 Eos # 0.0 (0.0-0.4) K/mm3 Baso # 0.0 (0.0-0.1) K/mm3 Comprehensive Metabolic Panel 06/02/19 Range/Units 03:36 Sodium 143 (137-145) mmol/L Potassium 4.0 (3.6-5.0) mmol/L Chloride 104.2 (98-107) mmol/L Carbon Dioxide 27 (22-30) mmol/L BUN 31 H (9-20) mg/dL Creatinine 1.4 (0.8-1.5) mg/dL Glucose 164 H (75-100) mg/dL Calcium 7.9 L (8.4-10.2) mg/dL AST 48 H (5-40) units/L ALT 139 H (7-56) units/L Alkaline Phosphatase 36 (35-129) units/L Total Protein 6.1 L (6.3-8.2) g/dL Albumin 3.4 L (3.9-5) g/dL Assessment and Plan Atrial fibrillation, new onset on IV Diltiazem Acute systolic heart failure History of NICMP EF 20-25% by echo 11/2018 no ischemia by MPI 11/2018 Hypertension Recommendations: Discontinue IV Diltiazem. We will use IV Digoxin for management of atrial fibrillation. Oral anticoagulation with Eliquis for stroke prophylaxis. Aggressive medical management for systolic heart failure. We will initiate a trial of intravenous Milrinone therapy for 72 hours.
[2019-06-02] MEDS ORDERED: LOPRESSOR IV PRN (12:54)
--- NOTE | 2019-06-02 14:17 | Progress Note ---
Assessment and Plan Imp: 1. Afib with RVR 2. NICMP 3. A/C systolic CHF 4. Obesity 5. Probable JONATHON Rec: 1. Rate control -> stop Diltiazem today; on beta-blockers and Digoxin per cardiology 2. Lasix IV; inotropic therapy added 3. Heparin drip -> Eliquis today 4. Weight loss 5. Outpatient PSG 6. I asked outsole caser to inquire about his candidacy for Medicaid as his lack of healthcare benefits likely contributes to his clinical deterioration Plan of care reviewed w/ patient, he understands/agrees Subjective Date of service: 06/02/19 Principal diagnosis: acute on chronic systolic heart failure, NICMP, paroxysmal atrial fib, Interval history: No events. Still c/o LE edema and abd swellling above baseline. SOB is above baseline. Afib still with rapid VR on tiny dose of Dilt drip. Active Medications Albuterol (Proventil) 2.5 mg IH Q4HRT PRN PRN Reason: Shortness Of Breath Apixaban (Eliquis) 5 mg PO Q12HR [facility]; Protocol Digoxin (Lanoxin) 0.25 mg IV Q6HR [facility] Stop: 06/02/19 18:01 Digoxin (Lanoxin) 0.125 mg IV Q24H [facility] Furosemide (Lasix) 40 mg IV 0600,1800 [facility] Last Admin: 06/02/19 06:29 Dose: 40 mg Documented by: Milrinone Lactate/Dextrose (Milrinone-D5w 20 Mg/100 Ml) 20 mg in 100 mls @ 14.693 mls/hr IV TITR [facility] Stop: 06/05/19 13:59 Losartan Potassium (Cozaar) 50 mg PO QDAY [facility] Metoprolol Tartrate (Lopressor) 25 mg PO BID [facility] Last Admin: 06/01/19 21:36 Dose: 25 mg Documented by: Metoprolol Tartrate (Lopressor) 5 mg IV Q4HR PRN PRN Reason: HR >130 Spironolactone (Aldactone) 25 mg PO QDAY [facility] Objective Vital Signs - 12hr 06/02/19 06/02/19 06/02/19 02:21 02:30 02:41 Temperature Pulse Rate 88 77 94 H Pulse Rate [ From Monitor] Respiratory 26 H 18 35 H Rate Blood Pressure 95/61 97/66 97/66 O2 Sat by Pulse 99 99 99 Oximetry 06/02/19 06/02/19 06/02/19 02:51 03:01 03:11 Temperature Pulse Rate 108 H 94 H 81 Pulse Rate [ From Monitor] Respiratory 35 H 23 22 Rate Blood Pressure 102/68 102/71 102/71 O2 Sat by Pulse 100 100 100 Oximetry 06/02/19 06/02/19 06/02/19 03:21 03:31 03:41 Temperature Pulse Rate 102 H 86 81 Pulse Rate [ From Monitor] Respiratory 28 H 21 24 Rate Blood Pressure 110/61 115/68 115/68 O2 Sat by Pulse 99 100 99 Oximetry 06/02/19 06/02/19 06/02/19 03:51 04:00 04:11 Temperature 98.5 F Pulse Rate 84 85 78 Pulse Rate [ 86 From Monitor] Respiratory 16 17 14 Rate Blood Pressure 114/84 109/75 109/75 O2 Sat by Pulse 100 98 99 Oximetry 06/02/19 06/02/19 06/02/19 04:21 04:31 04:41 Temperature Pulse Rate 80 84 85 Pulse Rate [ From Monitor] Respiratory 14 17 22 Rate Blood Pressure 117/66 96/66 96/66 O2 Sat by Pulse 100 95 94 Oximetry 06/02/19 06/02/19 06/02/19 04:51 05:01 05:11 Temperature Pulse Rate 95 H 96 H 94 H Pulse Rate [ From Monitor] Respiratory 20 26 H 22 Rate Blood Pressure 120/83 89/61 89/61 O2 Sat by Pulse 99 99 99 Oximetry 06/02/19 06/02/19 06/02/19 05:21 05:31 05:41 Temperature Pulse Rate 88 92 H 81 Pulse Rate [ From Monitor] Respiratory 21 24 19 Rate Blood Pressure 94/69 100/64 100/64 O2 Sat by Pulse 98 98 100 Oximetry 06/02/19 06/02/19 06/02/19 05:51 06:01 06:11 Temperature Pulse Rate 84 72 94 H Pulse Rate [ From Monitor] Respiratory 14 18 18 Rate Blood Pressure 109/76 113/75 113/75 O2 Sat by Pulse 99 99 99 Oximetry 06/02/19 06/02/19 06/02/19 06:21 06:31 06:41 Temperature Pulse Rate 99 H 95 H 84 Pulse Rate [ From Monitor] Respiratory 17 26 H 21 Rate Blood Pressure 112/55 112/68 112/68 O2 Sat by Pulse 99 95 99 Oximetry 06/02/19 06/02/19 06:51 07:00 Temperature Pulse Rate 81 79 Pulse Rate [ From Monitor] Respiratory 17 17 Rate Blood Pressure 118/77 101/82 O2 Sat by Pulse 99 98 Oximetry Constitutional: no acute distress, alert, other (obese) Eyes: non-icteric ENT: oropharynx moist Neck: supple Effort: normal Ascultation: Bilateral: diminished breath sounds, wheezes (very mild/faint expiratory wheezes) Cardiovascular: irregular rhythm Gastrointestinal: normoactive bowel sounds, soft, non-tender, non-distended Integumentary: normal Extremities: no cyanosis, edema (2+ bilateral LE edema) Neurologic: normal mental status, non-focal exam, pupils equal and round, CN II- XII normal Psychiatric: mood appropriate, affect normal CBC and BMP: 06/02/19 03:36 06/02/19 03:36 ABG, PT/INR, D-dimer: PT/INR, D-dimer PT 14.6 Sec. (12.2-14.9) 06/01/19 10:51 INR 1.17 (0.87-1.13) H 06/01/19 10:51 Abnormal lab findings: Abnormal Labs 06/01/19 06/01/19 06/01/19 09:38 09:38 09:38 RDW 15.4 H [place] % (Auto) 8.2 H [place] # INR Heparin Anti-Xa Level BUN 39 H Glucose 129 H POC Glucose Calcium AST ALT Troponin T 0.043 H NT-Pro-B Natriuret Pep 5194 H Total Protein Albumin Triglycerides 165 H HDL Cholesterol 27 L 06/01/19 06/01/19 06/01/19 10:51 13:01 20:17 RDW [place] % (Auto) [place] # INR 1.17 H Heparin Anti-Xa Level BUN Glucose POC Glucose 120 H Calcium AST ALT Troponin T 0.030 H NT-Pro-B Natriuret Pep Total Protein Albumin Triglycerides HDL Cholesterol 06/01/19 06/02/19 06/02/19 20:17 03:36 03:36 RDW 15.5 H [place] % (Auto) 10.2 H [place] # 1.0 H INR Heparin Anti-Xa Level 1.87 H BUN 31 H Glucose 164 H POC Glucose Calcium 7.9 L AST 48 H ALT 139 H Troponin T NT-Pro-B Natriuret Pep Total Protein 6.1 L Albumin 3.4 L Triglycerides HDL Cholesterol 06/02/19 06/02/19 07:51 07:51 RDW [place] % (Auto) [place] # INR Heparin Anti-Xa Level 0.22 L BUN Glucose POC Glucose Calcium AST ALT Troponin T 0.033 H NT-Pro-B Natriuret Pep Total Protein Albumin Triglycerides HDL Cholesterol Chest x-ray: report reviewed, image reviewed
[2019-06-02] MEDS: LOPRESSOR PO SCH ×2 (17:06→21:41)
[2019-06-02] MEDS: LANOXIN IV SCH ×2 (17:07→21:39)
[2019-06-02] MEDS: ALDACTONE PO SCH (17:08)
[2019-06-02] MEDS: MILRINONE-D5W 20 MG/100 ML 20 MG/100 ML BAG IV SCH (17:48)
[2019-06-02] MEDS: ELIQUIS PO SCH (21:41)
[2019-06-03] MEDS: MILRINONE-D5W 20 MG/100 ML 20 MG/100 ML BAG IV SCH ×3 (02:39→19:30)
[2019-06-03 05:22] LABS: Basophils % (Auto) 0.4 % (0.0-1.8); Eosinophils # (Auto) 0.1 K/mm3 (0.0-0.4); Hematocrit 39.7 % (35.5-45.6); Lymphocytes # (Auto) 1.7 K/mm3 (1.2-5.4); Lymphocytes % (Auto) 19.2 % (13.4-35.0); Mean Corpuscular HGB Conc 33 % (32-34); Mean Corpuscular Volume 90 fl (84-94); Monocytes % (Auto) 11.5 % (0.0-7.3); Platelet Count 214 K/mm3 (140-440); Red Blood Count 4.41 M/mm3 (3.65-5.03); Red Cell Distribution Width 15.7 % (13.2-15.2)
[2019-06-03 05:52] LABS: Alanine Aminotransferase 110 units/L (7-56); Albumin 3.3 g/dL (3.9-5); BUN/Creatinine Ratio 23; Blood Urea Nitrogen 27 mg/dL (9-20); Calcium 8.2 mg/dL (8.4-10.2); Hemolysis Index 4
[2019-06-03] MEDS: LASIX IV SCH ×2 (06:24→18:47)
[2019-06-03] MEDS: COZAAR PO SCH (10:13)
[2019-06-03] MEDS: ALDACTONE PO SCH (10:15)
[2019-06-03] MEDS: LOPRESSOR PO SCH ×2 (10:16→22:38)
[2019-06-03] MEDS: ELIQUIS PO SCH ×2 (10:16→22:39)
--- NOTE | 2019-06-03 11:59 | Progress Note ---
Assessment and Plan Atrial fibrillation, new onset on IV digoxin and oral metoprolol initiated on eliquis Acute systolic heart failure History of NICMP EF 20-25% by echo 11/2018 no ischemia by MPI 11/2018 Hypertension Recommendations: Continue aggressive medical management for systolic heart failure including trial of intravenous Milrinone therapy. Continue medical therapy for atrial fibrillation that persists. In addition, we will add amiodarone for management. Ok for transfer to telemetry. Subjective Date of service: 06/03/19 Principal diagnosis: acute on chronic systolic heart failure, NICMP, paroxysmal atrial fib, Interval history: IV milrinone continues. Patient reports his breathing is better. Admits he is diuresing well. Objective Vital Signs Temp Pulse Pulse Resp BP Pulse Ox 06/03/19 10:16 100 H 120/73 06/03/19 10:15 122 H 120/73 06/03/19 10:13 112 H 120/73 06/03/19 09:00 125 H 16 122/73 100 06/03/19 08:50 121 H 16 122/73 100 06/03/19 08:40 140 H 13 108/87 95 06/03/19 08:30 120 H 16 108/87 100 06/03/19 08:20 160 H 17 146/99 96 06/03/19 08:14 99 06/03/19 08:10 24 114/81 97 06/03/19 08:00 99.1 F 105 H 88 16 135/81 98 06/03/19 07:50 101 H 15 135/81 98 06/03/19 07:40 109 H 23 123/84 95 06/03/19 07:30 131 H 14 112/87 93 06/03/19 07:20 109 H 25 H 112/87 97 06/03/19 07:10 111 H 12 117/82 100 06/03/19 07:00 98 H 18 131/106 100 06/03/19 06:50 118 H 20 131/106 99 06/03/19 06:40 87 18 122/70 99 06/03/19 06:30 84 18 133/92 99 06/03/19 06:20 108 H 24 133/92 100 06/03/19 06:10 103 H 15 157/69 100 06/03/19 06:00 115 H 23 151/109 100 06/03/19 05:50 107 H 26 H 151/109 100 06/03/19 05:40 123 H 22 101/83 99 06/03/19 05:30 83 16 92/60 96 06/03/19 05:20 95 H 17 92/60 100 06/03/19 05:10 87 19 98/65 98 06/03/19 05:00 89 19 99/67 97 06/03/19 04:50 98 H 18 99/67 97 06/03/19 04:40 95 H 20 102/67 99 06/03/19 04:30 96 H 18 120/85 98 06/03/19 04:20 86 14 120/85 99 06/03/19 04:10 90 15 123/79 99 06/03/19 04:00 98.4 F 88 87 14 113/72 98 06/03/19 03:50 91 H 16 113/72 99 06/03/19 03:40 89 16 141/82 100 06/03/19 03:30 87 24 136/100 99 06/03/19 03:20 101 H 21 141/82 98 06/03/19 03:10 86 21 119/76 100 06/03/19 03:00 89 15 119/76 06/03/19 02:50 77 16 119/76 99 06/03/19 02:40 96 H 20 136/100 97 06/03/19 02:30 88 15 132/81 98 06/03/19 02:20 101 H 21 132/81 97 06/03/19 02:10 97 H 19 116/79 100 06/03/19 02:00 101 H 28 H 131/86 98 06/03/19 01:50 96 H 30 H 122/87 99 06/03/19 01:43 96 06/03/19 01:40 101 H 26 H 118/89 85 06/03/19 01:30 105 H 28 H 116/79 97 06/03/19 01:20 106 H 25 H 116/79 94 06/03/19 01:10 92 H 24 110/76 98 06/03/19 01:00 91 H 19 106/71 100 06/03/19 00:50 96 H 30 H 110/76 98 06/03/19 00:40 103 H 25 H 118/70 97 06/03/19 00:30 98 H 28 H 108/67 97 06/03/19 00:20 86 28 H 117/67 100 06/03/19 00:10 95 H 27 H 120/70 98 06/03/19 00:00 98.3 F 95 H 92 H 28 H 118/70 96 06/02/19 23:50 94 H 17 120/70 95 06/02/19 23:40 100 H 21 114/91 90 06/02/19 23:30 99 H 22 114/91 87 06/02/19 23:24 111 H 28 H 114/91 96 06/02/19 23:20 109 H 26 H 114/91 94 06/02/19 23:10 96 H 31 H 114/77 99 06/02/19 23:00 96 H 27 H 114/77 06/02/19 22:50 89 24 126/91 98 06/02/19 22:40 105 H 29 H 106/80 98 06/02/19 22:30 94 H 27 H 106/80 98 06/02/19 22:20 99 H 28 H 76/51 98 06/02/19 22:10 107 H 25 H 116/76 93 06/02/19 22:00 95 H 25 H 100/56 06/02/19 21:50 101 H 29 H 100/56 95 06/02/19 21:41 94 H 109/73 06/02/19 21:40 104 H 27 H 109/73 99 06/02/19 21:39 112 H 109/73 06/02/19 21:30 105 H 24 111/76 98 06/02/19 21:20 118 H 33 H 128/79 06/02/19 21:10 100 H 15 128/79 06/02/19 21:00 103 H 23 128/79 84 06/02/19 20:50 105 H 30 H 117/70 98 06/02/19 20:40 105 H 31 H 117/66 98 06/02/19 20:30 105 H 26 H 123/92 95 06/02/19 20:20 113 H 13 123/92 97 06/02/19 20:10 101 H 21 125/67 98 06/02/19 20:00 97.8 F 115 H 108 H 25 H 107/74 88 06/02/19 19:50 108 H 18 107/74 98 06/02/19 19:40 103 H 16 117/78 06/02/19 19:30 108 H 18 116/71 39 L 06/02/19 19:20 107 H 18 116/71 98 06/02/19 19:10 108 H 26 H 119/71 97 06/02/19 19:00 110 H 20 119/71 99 06/02/19 18:50 129 H 28 H 127/70 06/02/19 18:40 107 H 24 132/64 98 06/02/19 18:30 121 H 18 132/96 92 06/02/19 18:20 102 H 28 H 116/83 99 06/02/19 18:10 118 H 25 H 133/105 88 06/02/19 18:00 126 H 15 133/105 99 06/02/19 17:50 114 H 23 132/96 96 06/02/19 17:40 113 H 24 150/109 99 06/02/19 17:30 113 H 28 H 150/109 98 06/02/19 17:20 121 H 18 153/119 100 06/02/19 17:10 129 H 19 118/83 82 L 06/02/19 17:08 130 H 118/83 06/02/19 17:07 121 H 118/83 06/02/19 17:06 136 H 118/83 06/02/19 17:00 113 H 16 118/83 97 06/02/19 16:50 111 H 23 123/84 99 06/02/19 16:40 102 H 20 131/59 100 06/02/19 16:30 98 H 18 116/92 97 06/02/19 16:20 101 H 24 116/92 99 06/02/19 16:10 111 H 18 128/99 98 06/02/19 16:00 98.5 F 123 H 20 128/99 99 06/02/19 15:50 113 H 24 125/82 98 06/02/19 15:40 106 H 19 117/75 92 06/02/19 15:30 89 19 117/75 96 06/02/19 15:20 109 H 23 105/78 98 06/02/19 15:10 95 H 17 112/76 99 06/02/19 15:00 92 H 19 112/76 99 06/02/19 14:50 87 17 101/77 100 06/02/19 14:40 93 H 16 110/78 100 06/02/19 14:30 94 H 17 110/78 96 06/02/19 14:20 81 17 101/67 99 06/02/19 14:10 90 22 104/72 95 06/02/19 14:00 112 H 15 100/73 95 06/02/19 13:50 99 H 23 100/73 100 06/02/19 13:40 98 H 19 100/73 100 06/02/19 13:30 106 H 21 107/72 99 06/02/19 13:20 112 H 17 107/72 96 06/02/19 13:10 106 H 22 129/84 99 06/02/19 13:00 95 H 22 127/70 97 06/02/19 12:50 108 H 25 H 127/70 100 06/02/19 12:40 107 H 26 H 81/56 97 06/02/19 12:30 122 H 22 68/40 100 06/02/19 12:20 110 H 30 H 67/41 100 06/02/19 12:10 100 H 20 105/81 06/02/19 12:00 98 F 130 H 27 H 104/83 95 - Physical Examination General: No Apparent Distress HEENT: Positive: PERRL Neck: Positive: trachea midline Cardiac: Positive: irregularly irregular Lungs: Positive: Decreased Breath Sounds Neuro: Positive: Grossly Intact Extremities: Present: edema - Labs and Meds Cardiac Enzymes 06/03/19 Range/Units 04:43 AST 33 (5-40) units/L CBC 06/03/19 Range/Units 04:43 WBC 9.1 (4.5-11.0) K/mm3 RBC 4.41 (3.65-5.03) M/mm3 Hgb 13.0 (11.8-15.2) gm/dl Hct 39.7 (35.5-45.6) % Plt Count 214 (140-440) K/mm3 Lymph # 1.7 (1.2-5.4) K/mm3 Schley # 1.0 H (0.0-0.8) K/mm3 Eos # 0.1 (0.0-0.4) K/mm3 Baso # 0.0 (0.0-0.1) K/mm3 Comprehensive Metabolic Panel 06/03/19 Range/Units 04:43 Sodium 144 (137-145) mmol/L Potassium 3.9 (3.6-5.0) mmol/L Chloride 103.4 (98-107) mmol/L Carbon Dioxide 30 (22-30) mmol/L BUN 27 H (9-20) mg/dL Creatinine 1.2 (0.8-1.5) mg/dL Glucose 107 H (75-100) mg/dL Calcium 8.2 L (8.4-10.2) mg/dL AST 33 (5-40) units/L ALT 110 H (7-56) units/L Alkaline Phosphatase 43 (35-129) units/L Total Protein 5.7 L (6.3-8.2) g/dL Albumin 3.3 L (3.9-5) g/dL
[2019-06-03] MEDS ORDERED: CORDARONE 300 MG in D5W 100 ML IV ONE (14:00)
[2019-06-03] MEDS: LANOXIN IV SCH (18:53)
--- NOTE | 2019-06-03 20:14 | Progress Note ---
Assessment and Plan Afib with RVR - Now rate controlled The patient remains in atrial fibrillation, with now a well-controlled ventricular response on beta blockers and digoxin. Patient is stable for transfer to telemetry, continue current treatments including non-titratable intravenous milrinone. Amiodarone to assist with atrial fibrillation suppression, while aggressively treating fluid overload. Once heart failure is optimized, if A. fib persists consider mechanical efforts to return patient to sinus rhythm. Acute on chronic combined systolic and diastolic heart failure with EF of 20-25% as of 12/01/18 Continue aggressive heart failure management including diuretics, afterload agents and inotropic support with intravenous milrinone. Cardiology consul appreciated Elevated troponin -Probably secondary to demand ischemia due to the acute on chronic heart failure -Troponin level trended down Asthma -No acute excaerbation -on PRN neb tx HNyperglycemia from prediabetes Obatian A1c. Was 6.2% as of 12/06 -Diet control Cosistent CHO diet H/o hepatic hemangiomas stable supportive care DVT and GI ppx with lovenox and Pepcid -Disposition:transfer to Telemetry CCT: 35 mins Subjective Date of service: 06/03/19 Principal diagnosis: acute on chronic systolic heart failure, NICMP, paroxysmal atrial fib, Interval history: 59-year-old -[place] male patient with history of CHF, RI, and unco ntrolled hypertension presented to the emergency Department on account of shortness of breath for months worsening for the past few days. Patient also states that he has swelling in his legs that is coming up into his abdomen. He denies any chest pain. He states he is taking spironolactone and amlodipine. Patient is unable to state who is primary care physician is. He appears confused when attempting to answer questions. Patient is a poor historian. At the emergency department, chest xray shows evidence of cardiomegaly with pulmonary venous hypertension. ProBNP was found to be 5194. Had minimally elevated troponin T of 0.043. ECHO of 12/01/18 showed EF of 20-25%. Admission was requested for further evaluation and management. Objective - Constitutional Vitals: Vital Signs - 12hr 06/03/19 06/03/19 06/03/19 08:20 08:30 08:40 Temperature Pulse Rate 160 H 120 H 140 H Pulse Rate [ From Monitor] Respiratory 17 16 13 Rate Blood Pressure 146/99 108/87 108/87 O2 Sat by Pulse 96 100 95 Oximetry 06/03/19 06/03/19 06/03/19 08:50 09:00 09:10 Temperature Pulse Rate 121 H 125 H 112 H Pulse Rate [ From Monitor] Respiratory 16 16 15 Rate Blood Pressure 122/73 122/73 114/78 O2 Sat by Pulse 100 100 97 Oximetry 06/03/19 06/03/19 06/03/19 09:20 09:30 09:40 Temperature Pulse Rate 106 H 105 H 80 Pulse Rate [ From Monitor] Respiratory 22 20 16 Rate Blood Pressure 122/73 122/73 112/76 O2 Sat by Pulse 100 100 99 Oximetry 06/03/19 06/03/19 06/03/19 09:50 10:00 10:10 Temperature Pulse Rate 108 H 119 H 100 H Pulse Rate [ From Monitor] Respiratory 20 26 H 24 Rate Blood Pressure 116/80 116/80 119/69 O2 Sat by Pulse 100 98 99 Oximetry 06/03/19 06/03/19 06/03/19 10:13 10:15 10:16 Temperature Pulse Rate 112 H 122 H 100 H Pulse Rate [ From Monitor] Respiratory Rate Blood Pressure 120/73 120/73 120/73 O2 Sat by Pulse Oximetry 06/03/19 06/03/19 06/03/19 10:20 10:30 10:40 Temperature Pulse Rate 123 H 115 H 97 H Pulse Rate [ From Monitor] Respiratory 20 16 23 Rate Blood Pressure 120/73 120/73 136/94 O2 Sat by Pulse 99 97 98 Oximetry 06/03/19 06/03/19 06/03/19 10:50 11:00 11:10 Temperature Pulse Rate 95 H 102 H 100 H Pulse Rate [ From Monitor] Respiratory 19 17 12 Rate Blood Pressure 107/61 107/61 125/95 O2 Sat by Pulse 100 98 98 Oximetry 06/03/19 06/03/19 06/03/19 11:20 11:30 11:40 Temperature Pulse Rate 91 H 87 81 Pulse Rate [ From Monitor] Respiratory 13 21 20 Rate Blood Pressure 115/86 115/86 116/82 O2 Sat by Pulse 86 100 99 Oximetry 06/03/19 06/03/19 06/03/19 11:50 12:00 12:10 Temperature 98.4 F Pulse Rate 98 H 97 H 92 H Pulse Rate [ From Monitor] Respiratory 16 15 17 Rate Blood Pressure 120/89 120/89 123/87 O2 Sat by Pulse 99 100 95 Oximetry 06/03/19 06/03/19 06/03/19 12:20 12:30 12:40 Temperature Pulse Rate 108 H 92 H 94 H Pulse Rate [ From Monitor] Respiratory 22 16 19 Rate Blood Pressure 129/97 130/83 130/83 O2 Sat by Pulse 99 100 98 Oximetry 06/03/19 06/03/19 06/03/19 12:50 13:00 13:10 Temperature Pulse Rate 106 H 101 H 107 H Pulse Rate [ From Monitor] Respiratory 22 21 25 H Rate Blood Pressure 63/46 130/83 100/80 O2 Sat by Pulse 90 99 95 Oximetry 06/03/19 06/03/19 06/03/19 13:20 13:30 13:40 Temperature Pulse Rate 89 91 H 94 H Pulse Rate [ From Monitor] Respiratory 24 16 21 Rate Blood Pressure 102/60 109/70 109/70 O2 Sat by Pulse 100 100 99 Oximetry 06/03/19 06/03/19 06/03/19 13:50 14:00 14:10 Temperature Pulse Rate 100 H 105 H 101 H Pulse Rate [ From Monitor] Respiratory 20 13 18 Rate Blood Pressure 99/61 99/61 90/69 O2 Sat by Pulse 98 99 98 Oximetry 06/03/19 06/03/19 06/03/19 14:20 14:30 14:40 Temperature Pulse Rate 110 H 94 H 87 Pulse Rate [ From Monitor] Respiratory 21 18 14 Rate Blood Pressure 124/71 124/71 96/73 O2 Sat by Pulse 100 100 100 Oximetry 06/03/19 06/03/19 06/03/19 14:50 15:00 15:10 Temperature Pulse Rate 89 89 90 Pulse Rate [ From Monitor] Respiratory 18 15 25 H Rate Blood Pressure 106/70 106/70 96/59 O2 Sat by Pulse 100 100 Oximetry 06/03/19 06/03/19 06/03/19 15:20 15:30 15:40 Temperature Pulse Rate 98 H 94 H 89 Pulse Rate [ From Monitor] Respiratory 19 18 21 Rate Blood Pressure 96/59 106/70 143/78 O2 Sat by Pulse 100 97 100 Oximetry 06/03/19 06/03/19 06/03/19 15:50 16:00 16:10 Temperature Pulse Rate 98 H 95 H 99 H Pulse Rate [ From Monitor] Respiratory 21 24 22 Rate Blood Pressure 143/90 143/90 136/102 O2 Sat by Pulse 100 100 100 Oximetry 06/03/19 06/03/19 06/03/19 16:20 16:30 16:40 Temperature Pulse Rate 111 H 108 H 109 H Pulse Rate [ From Monitor] Respiratory 29 H 25 H 26 H Rate Blood Pressure 133/56 133/56 133/84 O2 Sat by Pulse 86 97 94 Oximetry 06/03/19 06/03/19 06/03/19 16:50 17:00 17:10 Temperature Pulse Rate 105 H 87 89 Pulse Rate [ From Monitor] Respiratory 20 22 22 Rate Blood Pressure 138/84 138/84 128/74 O2 Sat by Pulse 85 98 100 Oximetry 06/03/19 06/03/19 06/03/19 17:20 17:30 17:40 Temperature Pulse Rate 114 H 122 H 111 H Pulse Rate [ From Monitor] Respiratory 18 20 24 Rate Blood Pressure 128/83 128/83 135/89 O2 Sat by Pulse 100 95 100 Oximetry 06/03/19 06/03/19 06/03/19 17:50 18:00 18:10 Temperature Pulse Rate 102 H 102 H 97 H Pulse Rate [ From Monitor] Respiratory 22 17 26 H Rate Blood Pressure 144/97 144/97 115/61 O2 Sat by Pulse 100 97 100 Oximetry 06/03/19 06/03/19 06/03/19 18:20 18:30 18:40 Temperature Pulse Rate 95 H 95 H 95 H Pulse Rate [ From Monitor] Respiratory 22 23 17 Rate Blood Pressure 137/77 137/77 121/80 O2 Sat by Pulse 100 100 99 Oximetry 06/03/19 06/03/19 06/03/19 18:50 18:53 19:00 Temperature Pulse Rate 94 H 98 H 90 Pulse Rate [ From Monitor] Respiratory 21 25 H Rate Blood Pressure 116/76 120/76 120/76 O2 Sat by Pulse 100 100 Oximetry 06/03/19 06/03/19 06/03/19 19:10 19:20 19:30 Temperature Pulse Rate 99 H 96 H 92 H Pulse Rate [ From Monitor] Respiratory 22 23 25 H Rate Blood Pressure 135/80 122/81 122/81 O2 Sat by Pulse 98 97 98 Oximetry 06/03/19 06/03/19 06/03/19 19:40 19:50 20:00 Temperature Pulse Rate 100 H 101 H 97 H Pulse Rate [ 102 H From Monitor] Respiratory 28 H 16 24 Rate Blood Pressure 127/85 134/74 119/82 O2 Sat by Pulse 100 98 100 Oximetry General appearance: Present: no acute distress, well-nourished - EENT Eyes: PERRL, EOM intact ENT: hearing intact, clear oral mucosa Ears: bilateral: normal - Neck Neck: supple, normal ROM - Respiratory Respiratory effort: normal Respiratory: bilateral: CTA - Breasts Breasts: normal - Cardiovascular Heart rate: 88 Rhythm: irregularly irregular Heart Sounds: Present: S1 & S2. Absent: gallop, rub Extremities: pulses intact, No edema, normal color, Full ROM - Gastrointestinal General gastrointestinal: Present: soft, non-tender, non-distended, normal bowel sounds - Genitourinary Male genitourinary: normal - Integumentary Integumentary: clear, warm, dry - Musculoskeletal Musculoskeletal: 1, strength equal bilaterally - Neurologic Neurologic: moves all extremities - Psychiatric Psychiatric: memory intact, appropriate mood/affect, intact judgment & insight - Labs CBC & Chem 7: 06/03/19 04:43 06/03/19 04:43 Labs: Abnormal lab results 06/03/19 06/03/19 Range/Units 04:43 04:43 RDW 15.7 H (13.2-15.2) % Barber % (Auto) 11.5 H (0.0-7.3) % Barber # 1.0 H (0.0-0.8) K/mm3 BUN 27 H (9-20) mg/dL Glucose 107 H (75-100) mg/dL Calcium 8.2 L (8.4-10.2) mg/dL ALT 110 H (7-56) units/L Total Protein 5.7 L (6.3-8.2) g/dL Albumin 3.3 L (3.9-5) g/dL
[2019-06-03] MEDS: CORDARONE PO SCH (22:39)
--- NOTE | 2019-06-03 22:40 | Progress Note ---
Assessment and Plan Imp: 1. Afib with RVR 2. NICMP 3. A/C systolic CHF 4. Obesity 5. Probable JONATHON Rec: 1. Rate control per cardiology 2. Lasix IV; inotropic therapy added 3. Heparin drip -> Eliquis 4. Weight loss 5. Outpatient PSG 6. I asked mental health case manager to inquire about his candidacy for Medicaid as his lack of healthcare benefits likely contributes to his clinical deterioration 7. Will sign off once transferred out of ICU; please call or re-consult if needed Plan of care reviewed w/ patient, he understands/agrees Subjective Date of service: 06/03/19 Principal diagnosis: acute on chronic systolic heart failure, NICMP, paroxysmal atrial fib, Interval history: No events. Still c/o LE edema and abd swellling a little better. SOB is above baseline. Afib w/ controlled rate now. Active Medications Albuterol (Proventil) 2.5 mg IH Q4HRT PRN PRN Reason: Shortness Of Breath Amiodarone HCl (Cordarone) 200 mg PO BID TASHI Apixaban (Eliquis) 5 mg PO Q12HR [facility]; Protocol Last Admin: 06/03/19 10:16 Dose: 5 mg Documented by: Digoxin (Lanoxin) 0.125 mg IV Q24H [facility] Last Admin: 06/03/19 18:53 Dose: 0.125 mg Documented by: Furosemide (Lasix) 40 mg IV 0600,1800 [facility] Last Admin: 06/03/19 18:47 Dose: 40 mg Documented by: Milrinone Lactate/Dextrose (Milrinone-D5w 20 Mg/100 Ml) 20 mg in 100 mls @ 14.693 mls/hr IV TITR [facility] Stop: 06/05/19 13:59 Last Admin: 06/03/19 19:30 Dose: 0.375 mcg/kg/min, 14.693 mls/hr Documented by: Losartan Potassium (Cozaar) 50 mg PO QDAY [facility] Last Admin: 06/03/19 10:13 Dose: 50 mg Documented by: Metoprolol Tartrate (Lopressor) 25 mg PO BID [facility] Last Admin: 06/03/19 10:16 Dose: 25 mg Documented by: Metoprolol Tartrate (Lopressor) 5 mg IV Q4HR PRN PRN Reason: HR >130 Spironolactone (Aldactone) 25 mg PO QDAY [facility] Last Admin: 06/03/19 10:15 Dose: 25 mg Documented by: Objective Vital Signs - 12hr 06/03/19 06/03/19 06/03/19 10:40 10:50 11:00 Temperature Pulse Rate 97 H 95 H 102 H Pulse Rate [ From Monitor] Respiratory 23 19 17 Rate Blood Pressure 136/94 107/61 107/61 Blood Pressure [Left] O2 Sat by Pulse 98 100 98 Oximetry 06/03/19 06/03/19 06/03/19 11:10 11:20 11:30 Temperature Pulse Rate 100 H 91 H 87 Pulse Rate [ From Monitor] Respiratory 12 13 21 Rate Blood Pressure 125/95 115/86 115/86 Blood Pressure [Left] O2 Sat by Pulse 98 86 100 Oximetry 06/03/19 06/03/19 06/03/19 11:40 11:50 12:00 Temperature 98.4 F Pulse Rate 81 98 H 97 H Pulse Rate [ From Monitor] Respiratory 20 16 15 Rate Blood Pressure 116/82 120/89 120/89 Blood Pressure [Left] O2 Sat by Pulse 99 99 100 Oximetry 06/03/19 06/03/19 06/03/19 12:10 12:20 12:30 Temperature Pulse Rate 92 H 108 H 92 H Pulse Rate [ From Monitor] Respiratory 17 22 16 Rate Blood Pressure 123/87 129/97 130/83 Blood Pressure [Left] O2 Sat by Pulse 95 99 100 Oximetry 06/03/19 06/03/19 06/03/19 12:40 12:50 13:00 Temperature Pulse Rate 94 H 106 H 101 H Pulse Rate [ From Monitor] Respiratory 19 22 21 Rate Blood Pressure 130/83 63/46 130/83 Blood Pressure [Left] O2 Sat by Pulse 98 90 99 Oximetry 06/03/19 06/03/19 06/03/19 13:10 13:20 13:30 Temperature Pulse Rate 107 H 89 91 H Pulse Rate [ From Monitor] Respiratory 25 H 24 16 Rate Blood Pressure 100/80 102/60 109/70 Blood Pressure [Left] O2 Sat by Pulse 95 100 100 Oximetry 06/03/19 06/03/19 06/03/19 13:40 13:50 14:00 Temperature Pulse Rate 94 H 100 H 105 H Pulse Rate [ From Monitor] Respiratory 21 20 13 Rate Blood Pressure 109/70 99/61 99/61 Blood Pressure [Left] O2 Sat by Pulse 99 98 99 Oximetry 06/03/19 06/03/19 06/03/19 14:10 14:20 14:30 Temperature Pulse Rate 101 H 110 H 94 H Pulse Rate [ From Monitor] Respiratory 18 21 18 Rate Blood Pressure 90/69 124/71 124/71 Blood Pressure [Left] O2 Sat by Pulse 98 100 100 Oximetry 06/03/19 06/03/19 06/03/19 14:40 14:50 15:00 Temperature Pulse Rate 87 89 89 Pulse Rate [ From Monitor] Respiratory 14 18 15 Rate Blood Pressure 96/73 106/70 106/70 Blood Pressure [Left] O2 Sat by Pulse 100 100 100 Oximetry 06/03/19 06/03/19 06/03/19 15:10 15:20 15:30 Temperature Pulse Rate 90 98 H 94 H Pulse Rate [ From Monitor] Respiratory 25 H 19 18 Rate Blood Pressure 96/59 96/59 106/70 Blood Pressure [Left] O2 Sat by Pulse 100 97 Oximetry 06/03/19 06/03/19 06/03/19 15:40 15:50 16:00 Temperature Pulse Rate 89 98 H 95 H Pulse Rate [ From Monitor] Respiratory 21 21 24 Rate Blood Pressure 143/78 143/90 143/90 Blood Pressure [Left] O2 Sat by Pulse 100 100 100 Oximetry 06/03/19 06/03/19 06/03/19 16:10 16:20 16:30 Temperature Pulse Rate 99 H 111 H 108 H Pulse Rate [ From Monitor] Respiratory 22 29 H 25 H Rate Blood Pressure 136/102 133/56 133/56 Blood Pressure [Left] O2 Sat by Pulse 100 86 97 Oximetry 06/03/19 06/03/19 06/03/19 16:40 16:50 17:00 Temperature Pulse Rate 109 H 105 H 87 Pulse Rate [ From Monitor] Respiratory 26 H 20 22 Rate Blood Pressure 133/84 138/84 138/84 Blood Pressure [Left] O2 Sat by Pulse 94 85 98 Oximetry 06/03/19 06/03/19 06/03/19 17:10 17:20 17:30 Temperature Pulse Rate 89 114 H 122 H Pulse Rate [ From Monitor] Respiratory 22 18 20 Rate Blood Pressure 128/74 128/83 128/83 Blood Pressure [Left] O2 Sat by Pulse 100 100 95 Oximetry 06/03/19 06/03/1906/03/19 17:40 17:50 18:00 Temperature Pulse Rate 111 H 102 H 102 H Pulse Rate [ From Monitor] Respiratory 24 22 17 Rate Blood Pressure 135/89 144/97 144/97 Blood Pressure [Left] O2 Sat by Pulse 100 100 97 Oximetry 06/03/19 06/03/19 06/03/19 18:10 18:20 18:30 Temperature Pulse Rate 97 H 95 H 95 H Pulse Rate [ From Monitor] Respiratory 26 H 22 23 Rate Blood Pressure 115/61 137/77 137/77 Blood Pressure [Left] O2 Sat by Pulse 100 100 100 Oximetry 06/03/19 06/03/19 06/03/19 18:40 18:50 18:53 Temperature Pulse Rate 95 H 94 H 98 H Pulse Rate [ From Monitor] Respiratory 17 21 Rate Blood Pressure 121/80 116/76 120/76 Blood Pressure [Left] O2 Sat by Pulse 99 100 Oximetry 06/03/19 06/03/19 06/03/19 19:00 19:10 19:20 Temperature Pulse Rate 90 99 H 96 H Pulse Rate [ From Monitor] Respiratory 25 H 22 23 Rate Blood Pressure 120/76 135/80 122/81 Blood Pressure [Left] O2 Sat by Pulse 100 98 97 Oximetry 06/03/19 06/03/19 06/03/19 19:30 19:40 19:50 Temperature Pulse Rate 92 H 100 H 101 H Pulse Rate [ From Monitor] Respiratory 25 H 28 H 16 Rate Blood Pressure 122/81 127/85 134/74 Blood Pressure [Left] O2 Sat by Pulse 98 100 98 Oximetry 06/03/19 06/03/19 06/03/19 20:00 20:16 20:23 Temperature 98.4 F Pulse Rate 97 H Pulse Rate [ 102 H From Monitor] Respiratory 24 Rate Blood Pressure 119/82 Blood Pressure [Left] O2 Sat by Pulse 100 99 Oximetry 06/03/19 21:21 Temperature 98.5 F Pulse Rate 104 H Pulse Rate [ From Monitor] Respiratory 22 Rate Blood Pressure Blood Pressure 141/87 [Left] O2 Sat by Pulse 98 Oximetry Constitutional: no acute distress, alert, other (obese) Eyes: non-icteric ENT: oropharynx moist Neck: supple Effort: normal Ascultation: Bilateral: diminished breath sounds Cardiovascular: irregular rhythm Gastrointestinal: normoactive bowel sounds, soft, non-tender, non-distended Integumentary: normal Extremities: no cyanosis, edema (2+ bilateral LE edema) Neurologic: normal mental status, non-focal exam, pupils equal and round, CN II- XII normal Psychiatric: mood appropriate, affect normal CBC and BMP: 06/03/19 04:43 06/03/19 04:43 ABG, PT/INR, D-dimer: PT/INR, D-dimer PT 14.6 Sec. (12.2-14.9) 06/01/19 10:51 INR 1.17 (0.87-1.13) H 06/01/19 10:51 Abnormal lab findings: Abnormal Labs 06/01/19 06/01/19 06/01/19 09:38 09:38 09:38 RDW 15.4 H [place] % (Auto) 8.2 H Gove # INR Heparin Anti-Xa Level BUN 39 H Glucose 129 H POC Glucose Calcium AST ALT Troponin T 0.043 H NT-Pro-B Natriuret Pep 5194 H Total Protein Albumin Triglycerides 165 H HDL Cholesterol 27 L 06/01/19 06/01/19 06/01/19 10:51 13:01 20:17 RDW Gove % (Auto) Gove # INR 1.17 H Heparin Anti-Xa Level BUN Glucose POC Glucose 120 H Calcium AST ALT Troponin T 0.030 H NT-Pro-B Natriuret Pep Total Protein Albumin Triglycerides HDL Cholesterol 06/01/19 06/02/19 06/02/19 20:17 03:36 03:36 RDW 15.5 H [place] % (Auto) 10.2 H [place] # 1.0 H INR Heparin Anti-Xa Level 1.87 H BUN 31 H Glucose 164 H POC Glucose Calcium 7.9 L AST 48 H ALT 139 H Troponin T NT-Pro-B Natriuret Pep Total Protein 6.1 L Albumin 3.4 L Triglycerides HDL Cholesterol 06/02/19 06/02/19 06/03/19 07:51 07:51 04:43 RDW 15.7 H [place] % (Auto) 11.5 H [place] # 1.0 H INR Heparin Anti-Xa Level 0.22 L BUN Glucose POC Glucose Calcium AST ALT Troponin T 0.033 H NT-Pro-B Natriuret Pep Total Protein Albumin Triglycerides HDL Cholesterol 06/03/19 04:43 RDW [place] % (Auto) Gove # INR Heparin Anti-Xa Level BUN 27 H Glucose 107 H POC Glucose Calcium 8.2 L AST ALT 110 H Troponin T NT-Pro-B Natriuret Pep Total Protein 5.7 L Albumin 3.3 L Triglycerides HDL Cholesterol Chest x-ray: report reviewed, image reviewed
[2019-06-04] MEDS: MILRINONE-D5W 20 MG/100 ML 20 MG/100 ML BAG IV SCH ×3 (04:03→21:02)
[2019-06-04] MEDS: LASIX IV SCH ×2 (05:49→17:59)
[2019-06-04 08:17] LABS: Basophils % (Auto) 0.3 % (0.0-1.8); Eosinophils # (Auto) 0.1 K/mm3 (0.0-0.4); Eosinophils % (Auto) 0.9 % (0.0-4.3); Hemoglobin 14.1 gm/dl (11.8-15.2); Lymphocytes # (Auto) 1.6 K/mm3 (1.2-5.4); Lymphocytes % (Auto) 18.1 % (13.4-35.0); Mean Corpuscular HGB Conc 32 % (32-34); Mean Corpuscular Volume 91 fl (84-94); Monocytes # (Auto) 0.8 K/mm3 (0.0-0.8); Monocytes % (Auto) 9.8 % (0.0-7.3); Platelet Count 220 K/mm3 (140-440); Red Blood Count 4.83 M/mm3 (3.65-5.03); Red Cell Distribution Width 15.3 % (13.2-15.2)
[2019-06-04 08:31] LABS: Alanine Aminotransferase 96 units/L (7-56); Albumin 3.6 g/dL (3.9-5); BUN/Creatinine Ratio 17; Blood Urea Nitrogen 20 mg/dL (9-20); Calcium 8.7 mg/dL (8.4-10.2); Hemolysis Index 5
[2019-06-04] MEDS: COZAAR PO SCH (10:00)
[2019-06-04] MEDS: ELIQUIS PO SCH ×2 (10:00→21:27)
[2019-06-04] MEDS: ALDACTONE PO SCH (10:02)
[2019-06-04] MEDS: LOPRESSOR PO SCH ×2 (10:03→21:27)
[2019-06-04] MEDS: CORDARONE PO SCH ×2 (10:03→21:27)
--- NOTE | 2019-06-04 12:44 | Progress Note ---
<MARCELINA LINARES - Last Filed: 06/04/19 12:41> Assessment and Plan Atrial fibrillation, new onset on IV digoxin, amiodarone and oral metoprolol initiated on eliquis Acute systolic heart failure History of NICMP EF 20-25% by echo 11/2018 no ischemia by MPI 11/2018 Hypertension Recommend: Continue aggressive medical management for systolic heart failure. Continue medical therapy for atrial fibrillation that persists. Subjective Date of service: 06/04/19 Principal diagnosis: acute on chronic systolic heart failure, NICMP, paroxysmal atrial fib, Interval history: IV milrinone continues. Patient reports his breathing is better. LE edema is slowly improving. Afib with a well controlled ventricular rate on telemetry. Objective Vital Signs Temp Pulse Pulse Resp Resp BP BP 06/04/19 10:03 104 H 120/79 06/04/19 10:02 104 H 120/79 06/04/19 10:00 104 H 120/79 06/04/19 09:14 20 06/04/19 08:39 140 H 112/70 06/04/19 07:48 98.5 F 69 18 111/69 06/04/19 04:09 98.4 F 56 L 18 127/82 06/04/19 00:05 98.1 F 53 L 18 130/80 06/03/19 22:38 104 H 141/87 06/03/19 22:00 20 06/03/19 21:55 121/85 06/03/19 21:48 121/85 06/03/19 21:30 121/85 06/03/19 21:25 22 06/03/19 21:22 121/85 06/03/19 21:21 98.5 F 104 H 22 141/87 06/03/19 21:13 121/85 06/03/19 20:53 95 H 06/03/19 20:40 105 H 24 119/82 06/03/19 20:30 99 H 22 103/69 06/03/19 20:23 98.4 F 06/03/19 20:20 103 H 16 103/69 06/03/19 20:16 06/03/19 20:10 106 H 16 119/82 06/03/19 20:02 105 H 25 H 119/82 06/03/19 20:00 97 H 102 H 24 119/82 06/03/19 19:50 101 H 16 134/74 06/03/19 19:40 100 H 28 H 127/85 06/03/19 19:30 92 H 25 H 122/81 06/03/19 19:20 96 H 23 122/81 06/03/19 19:10 99 H 22 135/80 06/03/19 19:00 90 25 H 120/76 06/03/19 18:53 98 H 120/76 06/03/19 18:50 94 H 21 116/76 06/03/19 18:40 95 H 17 121/80 06/03/19 18:30 95 H 23 137/77 06/03/19 18:20 95 H 22 137/77 06/03/19 18:10 97 H 26 H 115/61 06/03/19 18:00 102 H 17 144/97 06/03/19 17:50 102 H 22 144/97 06/03/19 17:40 111 H 24 135/89 06/03/19 17:30 122 H 20 128/83 06/03/19 17:20 114 H 18 128/83 06/03/19 17:10 89 22 128/74 06/03/19 17:00 87 22 138/84 06/03/19 16:50 105 H 20 138/84 06/03/19 16:40 109 H 26 H 133/84 06/03/19 16:30 108 H 25 H 133/56 06/03/19 16:20 111 H 29 H 133/56 06/03/19 16:10 99 H 22 136/102 06/03/19 16:00 95 H 24 143/90 06/03/19 15:50 98 H 21 143/90 06/03/19 15:40 89 21 143/78 06/03/19 15:30 94 H 18 106/70 06/03/19 15:20 98 H 19 96/59 06/03/19 15:10 90 25 H 96/59 06/03/19 15:00 89 15 106/70 06/03/19 14:50 89 18 106/70 06/03/19 14:40 87 14 96/73 06/03/19 14:30 94 H 18 124/71 06/03/19 14:20 110 H 21 124/71 06/03/19 14:10 101 H 18 90/69 06/03/19 14:00 105 H 13 99/61 06/03/19 13:50 100 H 20 99/61 06/03/19 13:40 94 H 21 109/70 06/03/19 13:30 91 H 16 109/70 06/03/19 13:20 89 24 102/60 06/03/19 13:10 107 H 25 H 100/80 06/03/19 13:00 101 H 21 130/83 06/03/19 12:50 106 H 22 63/46 Pulse Ox 06/04/19 10:03 06/04/19 10:02 06/04/19 10:00 06/04/19 09:14 06/04/19 08:39 06/04/19 07:48 94 06/04/19 04:09 98 06/04/19 00:05 99 06/03/19 22:38 06/03/19 22:00 06/03/19 21:55 06/03/19 21:48 06/03/19 21:30 82 L 06/03/19 21:25 98 06/03/19 21:22 06/03/19 21:21 98 06/03/19 21:13 88 06/03/19 20:53 06/03/19 20:40 100 06/03/19 20:30 99 06/03/19 20:23 06/03/19 20:20 100 06/03/19 20:16 99 06/03/19 20:10 100 06/03/19 20:02 100 06/03/19 20:00 100 06/03/19 19:50 98 06/03/19 19:40 100 06/03/19 19:30 98 06/03/19 19:20 97 06/03/19 19:10 98 06/03/19 19:00 100 06/03/19 18:53 06/03/19 18:50 100 06/03/19 18:40 99 06/03/19 18:30 100 06/03/19 18:20 100 06/03/19 18:10 100 06/03/19 18:00 97 06/03/19 17:50 100 06/03/19 17:40 100 06/03/19 17:30 95 06/03/19 17:20 100 06/03/19 17:10 100 06/03/19 17:00 98 06/03/19 16:50 85 06/03/19 16:40 94 06/03/19 16:30 97 06/03/19 16:20 86 06/03/19 16:10 100 06/03/19 16:00 100 06/03/19 15:50 100 06/03/19 15:40 100 06/03/19 15:30 97 06/03/19 15:20 100 06/03/19 15:10 06/03/19 15:00 100 06/03/19 14:50 100 06/03/19 14:40 100 06/03/19 14:30 100 06/03/19 14:20 100 06/03/19 14:10 98 06/03/19 14:00 99 06/03/19 13:50 98 06/03/19 13:40 99 06/03/19 13:30 100 06/03/19 13:20 100 06/03/19 13:10 95 06/03/19 13:00 99 06/03/19 12:50 90 - Physical Examination General: No Apparent Distress HEENT: Positive: PERRL Neck: Positive: trachea midline Cardiac: Positive: irregularly irregular Lungs: Positive: Decreased Breath Sounds Neuro: Positive: Grossly Intact Extremities: Present: edema - Labs and Meds Cardiac Enzymes 06/04/19 Range/Units 06:43 AST 29 (5-40) units/L CBC 06/04/19 Range/Units 06:43 WBC 8.6 (4.5-11.0) K/mm3 RBC 4.83 (3.65-5.03) M/mm3 Hgb 14.1 (11.8-15.2) gm/dl Hct 44.0 (35.5-45.6) % Plt Count 220 (140-440) K/mm3 Lymph # 1.6 (1.2-5.4) K/mm3 [place] # 0.8 (0.0-0.8) K/mm3 Eos # 0.1 (0.0-0.4) K/mm3 Baso # 0.0 (0.0-0.1) K/mm3 Comprehensive Metabolic Panel 06/04/19 Range/Units 06:43 Sodium 147 H (137-145) mmol/L Potassium 3.6 (3.6-5.0) mmol/L Chloride 101.8 (98-107) mmol/L Carbon Dioxide 31 H (22-30) mmol/L BUN 20 (9-20) mg/dL Creatinine 1.2 (0.8-1.5) mg/dL Glucose 120 H (75-100) mg/dL Calcium 8.7 (8.4-10.2) mg/dL AST 29 (5-40) units/L ALT 96 H (7-56) units/L Alkaline Phosphatase 56 (35-129) units/L Total Protein 6.7 (6.3-8.2) g/dL Albumin 3.6 L (3.9-5) g/dL <ANA PAULA EAST - Last Filed: 06/04/19 17:33> Assessment and Plan I have seen and evalauted the patient and agree with the assessment and plan. The patient presented to the hospital with Atrial fibrillation, new onset, and a history of non-ischemic cardiomyopathy with EF 20-25%. Recommend continue goal directed medical therapy for treatment of cardiomyopathy. Continue digoxin, amiodarone and oral metoprolol for rate control for treatment of atrial fibrillation. Continue eliquis for anticoagulation. Objective Vital Signs Temp Pulse Pulse Resp Resp BP BP 06/04/19 15:27 106 H 18 124/72 06/04/19 10:03 104 H 120/79 06/04/19 10:02 104 H 120/79 06/04/19 10:00 97 H 120/79 06/04/19 09:14 20 06/04/19 08:39 140 H 112/70 06/04/19 07:48 98.5 F 69 18 111/69 06/04/19 04:09 98.4 F 56 L 18 127/82 06/04/19 00:05 98.1 F 53 L 18 130/80 06/03/19 22:38 104 H 141/87 06/03/19 22:00 20 06/03/19 21:55 121/85 06/03/19 21:48 121/85 06/03/19 21:30 121/85 06/03/19 21:25 22 06/03/19 21:22 121/85 06/03/19 21:21 98.5 F 104 H 22 141/87 06/03/19 21:13 121/85 06/03/19 20:53 95 H 06/03/19 20:40 105 H 24 119/82 06/03/19 20:30 99 H 22 103/69 06/03/19 20:23 98.4 F 06/03/19 20:20 103 H 16 103/69 06/03/19 20:16 06/03/19 20:10 106 H 16 119/82 06/03/19 20:02 105 H 25 H 119/82 06/03/19 20:00 97 H 102 H 24 119/82 06/03/19 19:50 101 H 16 134/74 06/03/19 19:40 100 H 28 H 127/85 06/03/19 19:30 92 H 25 H 122/81 06/03/19 19:20 96 H 23 122/81 06/03/19 19:10 99 H 22 135/80 06/03/19 19:00 90 25 H 120/76 06/03/19 18:53 98 H 120/76 06/03/19 18:50 94 H 21 116/76 06/03/19 18:40 95 H 17 121/80 06/03/19 18:30 95 H 23 137/77 06/03/19 18:20 95 H 22 137/77 06/03/19 18:10 97 H 26 H 115/61 06/03/19 18:00 102 H 17 144/97 06/03/19 17:50 102 H 22 144/97 06/03/19 17:40 111 H 24 135/89 06/03/19 17:30 122 H 20 128/83 Pulse Ox 06/04/19 15:27 96 06/04/19 10:03 06/04/19 10:02 06/04/19 10:00 06/04/19 09:14 06/04/19 08:39 06/04/19 07:48 94 06/04/19 04:09 98 06/04/19 00:05 99 06/03/19 22:38 06/03/19 22:00 06/03/19 21:55 06/03/19 21:48 06/03/19 21:30 82 L 06/03/19 21:25 98 06/03/19 21:22 06/03/19 21:21 98 06/03/19 21:13 88 06/03/19 20:53 06/03/19 20:40 100 10/15/19 20:30 99 06/03/19 20:23 06/03/19 20:20 100 06/03/19 20:16 99 06/03/19 20:10 100 06/03/19 20:02 100 06/03/19 20:00 100 06/03/19 19:50 98 06/03/19 19:40 100 06/03/19 19:30 98 06/03/19 19:20 97 06/03/19 19:10 98 06/03/19 19:00 100 06/03/19 18:53 06/03/19 18:50 100 06/03/19 18:40 99 06/03/19 18:30 100 06/03/19 18:20 100 06/03/19 18:10 100 06/03/19 18:00 97 06/03/19 17:50 100 06/03/19 17:40 100 06/03/19 17:30 95 - Labs and Meds Cardiac Enzymes 06/04/19 Range/Units 06:43 AST 29 (5-40) units/L CBC 06/04/19 Range/Units 06:43 WBC 8.6 (4.5-11.0) K/mm3 RBC 4.83 (3.65-5.03) M/mm3 Hgb 14.1 (11.8-15.2) gm/dl Hct 44.0 (35.5-45.6) % Plt Count 220 (140-440) K/mm3 Lymph # 1.6 (1.2-5.4) K/mm3 [place] # 0.8 (0.0-0.8) K/mm3 Eos # 0.1 (0.0-0.4) K/mm3 Baso # 0.0 (0.0-0.1) K/mm3 Comprehensive Metabolic Panel 06/04/19 Range/Units 06:43 Sodium 147 H (137-145) mmol/L Potassium 3.6 (3.6-5.0) mmol/L Chloride 101.8 (98-107) mmol/L Carbon Dioxide 31 H (22-30) mmol/L BUN 20 (9-20) mg/dL Creatinine 1.2 (0.8-1.5) mg/dL Glucose 120 H (75-100) mg/dL Calcium 8.7 (8.4-10.2) mg/dL AST 29 (5-40) units/L ALT 96 H (7-56) units/L Alkaline Phosphatase 56 (35-129) units/L Total Protein 6.7 (6.3-8.2) g/dL Albumin 3.6 L (3.9-5) g/dL
--- NOTE | 2019-06-04 13:55 | Progress Note ---
Assessment and Plan Assessment and plan: 59-year-old man with history of heart disease presents to the hospital with swelling of his legs and shortness of breath. He was apparently confused in the ER. CHF exacerbation, EF 20%, nonischemic cardiomyopathy with negative stress test in November 2018 Continue diuretics, optimize medications Atrial fibrillation, new onset , Optimize rate control medications per cardiology, on eliquis for stroke prophylaxis Probable JONATHON Pulmonology consult appreciated, outpatient follow-up for sleep study dvt ppx full anticoagulated Afib with RVR - Now rate controlled htn urgency optimized Acute metabolic encephalopathy Resolved, CTH neg HNyperglycemia from prediabetes Obatian A1c. Was 6.2% as of 12/06 -Diet control Cosistent CHO diet H/o hepatic hemangiomas stable supportive care History Interval history: No further episodes of confusion Review of systems Constitutional: No fevers, no malaise, no joint pains CVS: No chest pain, orthopnea and pedal edema are improving GI: No abdominal pain, no diarrhea, no vomiting, no constipation Respiratory: no wheezing, no coughing Hospitalist Physical - Physical exam Narrative exam: General.: Appears well, no distress, nontoxic HEENT: Moist mucous membranes, extraocular muscles intact, no lymphadenopathy Neck: supple Cardiac: S1-S2 heard Lungs: Bibasilar crackles Abdomen: soft , nontender, nondistended, bowel sounds positive Extremities: Into full improvement of bipedal edema Skin: no rash or lesions Neurologic: no gross focal deficits Psych: calm, and cooperative - Constitutional Vitals: Temp Pulse Resp BP Pulse Ox 98.5 F 104 H 20 120/79 94 06/04/19 07:48 06/04/19 10:03 06/04/19 09:14 06/04/19 10:03 06/04/19 07:48 General appearance: Present: no acute distress, well-nourished Results - Labs CBC & Chem 7: 06/04/19 06:43 06/04/19 06:43 Labs: Laboratory Last Values WBC 8.6 K/mm3 (4.5-11.0) 06/04/19 06:43 RBC 4.83 M/mm3 (3.65-5.03) 06/04/19 06:43 Hgb 14.1 gm/dl (11.8-15.2) 06/04/19 06:43 Hct 44.0 % (35.5-45.6) 06/04/19 06:43 MCV 91 fl (84-94) 06/04/19 06:43 MCH 29 pg (28-32) 06/04/19 06:43 MCHC 32 % (32-34) 06/04/19 06:43 RDW 15.3 % (13.2-15.2) H 06/04/19 06:43 Plt Count 220 K/mm3 (140-440) 06/04/19 06:43 Lymph % (Auto) 18.1 % (13.4-35.0) 06/04/19 06:43 [place] % (Auto) 9.8 % (0.0-7.3) H 06/04/19 06:43 Eos % (Auto) 0.9 % (0.0-4.3) 06/04/19 06:43 Baso % (Auto) 0.3 % (0.0-1.8) 06/04/19 06:43 Lymph # 1.6 K/mm3 (1.2-5.4) 06/04/19 06:43 [place] # 0.8 K/mm3 (0.0-0.8) 06/04/19 06:43 Eos # 0.1 K/mm3 (0.0-0.4) 06/04/19 06:43 Baso # 0.0 K/mm3 (0.0-0.1) 06/04/19 06:43 Seg Neutrophils % 70.9 % (40.0-70.0) H 06/04/19 06:43 Seg Neutrophils # 6.1 K/mm3 (1.8-7.7) 06/04/19 06:43 PT 14.6 Sec. (12.2-14.9) 06/01/19 10:51 INR 1.17 (0.87-1.13) H 06/01/19 10:51 APTT 26.9 Sec. (24.2-36.6) 06/01/19 10:51 Heparin Anti-Xa Level 0.22 U.I./ml (0.3-0.7) L 06/02/19 07:51 Sodium 147 mmol/L (137-145) H 06/04/19 06:43 Potassium 3.6 mmol/L (3.6-5.0) 06/04/19 06:43 Chloride 101.8 mmol/L (98-107) 06/04/19 06:43 Carbon Dioxide 31 mmol/L (22-30) H 06/04/19 06:43 Anion Gap 18 mmol/L 06/04/19 06:43 BUN 20 mg/dL (9-20) 06/04/19 06:43 Creatinine 1.2 mg/dL (0.8-1.5) 06/04/19 06:43 Estimated GFR > 60 ml/min 06/04/19 06:43 BUN/Creatinine Ratio 17 % 06/04/19 06:43 Glucose 120 mg/dL (75-100) H 06/04/19 06:43 POC Glucose 120 (70-105) H 06/01/19 13:01 Calcium 8.7 mg/dL (8.4-10.2) 06/04/19 06:43 Total Bilirubin 0.40 mg/dL (0.1-1.2) 06/04/19 06:43 AST 29 units/L (5-40) 06/04/19 06:43 ALT 96 units/L (7-56) H 06/04/19 06:43 Alkaline Phosphatase 56 units/L (35-129) 06/04/19 06:43 Ammonia 41.0 umol/L (25-60) 06/01/19 09:42 Troponin T 0.033 ng/mL (0.00-0.029) H 06/02/19 07:51 NT-Pro-B Natriuret Pep 5194 pg/mL (0-900) H 06/01/19 09:38 Total Protein 6.7 g/dL (6.3-8.2) 06/04/19 06:43 Albumin 3.6 g/dL (3.9-5) L 06/04/19 06:43 Albumin/Globulin Ratio 1.2 % 06/04/19 06:43 Triglycerides 165 mg/dL (2-149) H 06/01/19 09:38 Cholesterol 135 mg/dL (50-199) 06/01/19 09:38 LDL Cholesterol Direct 78 mg/dL (50-130) 06/01/19 09:38 HDL Cholesterol 27 mg/dL (40-59) L 06/01/19 09:38 Cholesterol/HDL Ratio 5.00 % 06/01/19 09:38 TSH 2.340 mlU/mL (0.270-4.200) 06/01/19 09:42 Urine Opiates Screen Presumptive negative 06/01/19 12:16 Urine Methadone Screen Presumptive negative 06/01/19 12:16 Ur Barbiturates Screen Presumptive negative 06/01/19 12:16 Ur Phencyclidine Scrn Presumptive negative 06/01/19 12:16 Ur Amphetamines Screen Presumptive negative 06/01/19 12:16 U Benzodiazepines Scrn Presumptive negative 06/01/19 12:16 Urine Cocaine Screen Presumptive negative 06/01/19 12:16 U Marijuana (THC) Screen Presumptive negative 06/01/19 12:16 Drugs of Abuse Note Disclamer 06/01/19 12:16 Active Medications - Current Medications Current Medications: Generic Name Dose Route Start Last Admin Trade Name Freq PRN Reason Stop Dose Admin Albuterol 2.5 mg 06/01/19 11:24 Proventil IH Q4HRT PRN Shortness Of Breath Amiodarone HCl 200 mg 06/03/19 22:00 06/04/19 10:03 Cordarone PO 200 mg BID TASHI Administration Apixaban 5 mg 06/02/19 22:00 06/04/19 10:00 Eliquis PO 5 mg Q12HR TASHI Administration Protocol Digoxin 0.125 mg 06/03/19 17:00 06/03/19 18:53 Lanoxin IV 0.125 mg Q24H TASHI Administration Furosemide 40 mg 06/02/19 06:00 06/04/19 05:49 Lasix IV 40 mg 0600,1800 TASHI Administration Milrinone Lactate/Dextrose 20 mg in 100 mls @ 14.693 mls/hr 06/02/19 14:00 06/04/19 04:03 Milrinone-D5w 20 Mg/100 Ml IV 06/05/19 13:59 0.375 mcg/kg/min TITR TASHI 14.693 mls/hr Administration 0.375 MCG/KG/MIN Losartan Potassium 50 mg 06/03/19 10:00 06/04/19 10:00 Cozaar PO 50 mg QDAY TASHI Administration Metoprolol Tartrate 25 mg 06/01/19 12:00 06/04/19 10:03 Lopressor PO 25 mg BID TASHI Administration Metoprolol Tartrate 5 mg 06/02/19 12:54 06/04/19 08:39 Lopressor IV 5 mg Q4HR PRN Administration HR >130 Spironolactone 25 mg 06/02/19 10:00 06/04/19 10:02 Aldactone PO 25 mg QDAY TASHI Administration Nutrition/Malnutrition Assess - Dietary Evaluation Nutrition/Malnutrition Findings: Nutrition Notes Start: 06/02/19 12:48 Freq: Status: Active Protocol: Document 06/02/19 12:48 LM (Rec: 06/02/19 12:53 LM [id number]) Nutrition Notes 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 Pb score of 19 with no skin breakdown. Pt stated he had good appetite at home and reported eating sandwiches and fast food. Pt stated he has leg swelling. Pt stated he ate 100% of breakfast and wanted diet education on foods he should be eating. #1 Nutrition Diagnosis Food and nutrition-related knowledge deficit Etiology No prior hypertension diet education As Evidenced by Signs and Symptoms pt requesting hypertension diet education, leg swelling Nutrition Intervention Teaching Recipient Patient Learning Readiness Good Teaching Methods Discussion,Handout Response to Teaching Verbalize understanding Education Handouts Provided Hypertension Nutrition Therapy Barriers to Learning No Barriers RD phone number provided Yes Patient aware of follow up options Yes Revisit per MD consult or patient Sign Off request:
[2019-06-04] MEDS: LANOXIN IV SCH (17:55)
[2019-06-05] MEDS: MILRINONE-D5W 20 MG/100 ML 20 MG/100 ML BAG IV SCH (04:15)
[2019-06-05] MEDS: LASIX IV SCH ×2 (06:39→17:57)
[2019-06-05] MEDS: LOPRESSOR PO SCH ×2 (09:10→21:15)
[2019-06-05] MEDS: COZAAR PO SCH (09:10)
[2019-06-05] MEDS: ALDACTONE PO SCH (09:10)
[2019-06-05] MEDS: ELIQUIS PO SCH ×2 (09:11→21:15)
[2019-06-05] MEDS: CORDARONE PO SCH ×2 (09:12→21:15)
--- NOTE | 2019-06-05 10:13 | Progress Note ---
Assessment and Plan Atrial fibrillation, new onset on IV digoxin, amiodarone and oral metoprolol initiated on eliquis Acute systolic heart failure History of NICMP EF 20-25% by echo 11/2018 no ischemia by MPI 11/2018 Hypertension Recommend: Continue aggressive medical management for systolic heart failure. Continue medical therapy for atrial fibrillation that persists. For planned [place]/CV to return patient to sinus rhythm on tomorrow. Subjective Date of service: 06/05/19 Principal diagnosis: acute on chronic systolic heart failure, NICMP, paroxysmal atrial fib, Interval history: Afib persists with a well controlled ventricular rate on telemetry. Objective Vital Signs Temp Pulse Resp BP BP Pulse Ox 06/05/19 08:08 98.6 F 80 18 112/75 96 06/05/19 04:12 98.5 F 06/05/19 04:09 51 L 18 91/66 100 06/04/19 23:49 98.2 F 06/04/19 23:48 78 18 140/93 97 06/04/19 21:27 62 119/89 06/04/19 20:22 98.1 F 06/04/19 20:21 62 18 119/89 97 06/04/19 19:29 92 H 06/04/19 17:55 89 129/96 06/04/19 15:27 106 H 18 124/72 96 - Physical Examination General: No Apparent Distress HEENT: Positive: PERRL Neck: Positive: trachea midline Cardiac: Positive: irregularly irregular Lungs: Positive: Decreased Breath Sounds Neuro: Positive: Grossly Intact Extremities: Present: edema
--- NOTE | 2019-06-05 12:14 | Progress Note ---
Assessment and Plan Assessment and plan: 59-year-old man with history of heart disease presents to the hospital with swelling of his legs and shortness of breath. He was apparently confused in the ER. CHF exacerbation, EF 20%, nonischemic cardiomyopathy with negative stress test in November 2018 Continue diuretics, optimize medications Atrial fibrillation, new onset , Optimize rate control medications per cardiology, on eliquis for stroke prophylaxis -Plan for [place] cardioversion tomorrow Probable JONATHON Pulmonology consult appreciated, outpatient follow-up for sleep study dvt ppx full anticoagulated Afib with RVR - Now rate controlled htn urgency optimized Acute metabolic encephalopathy Resolved, CTH neg HNyperglycemia from prediabetes Obatian A1c. Was 6.2% as of 12/06 -Diet control Cosistent CHO diet H/o hepatic hemangiomas stable supportive care History Interval history: No further episodes of confusion Review of systems Constitutional: No fevers, no malaise, no joint pains CVS: No chest pain, orthopnea and pedal edema are improving GI: No abdominal pain, no diarrhea, no vomiting, no constipation Respiratory: no wheezing, no coughing Hospitalist Physical - Physical exam Narrative exam: General.: Appears well, no distress, nontoxic HEENT: Moist mucous membranes, extraocular muscles intact, no lymphadenopathy Neck: supple Cardiac: S1-S2 heard Lungs: Bibasilar crackles Abdomen: soft , nontender, nondistended, bowel sounds positive Extremities: Into full improvement of bipedal edema Skin: no rash or lesions Neurologic: no gross focal deficits Psych: calm, and cooperative - Constitutional Vitals: Temp Pulse Resp BP Pulse Ox 98.6 F 113 H 18 112/75 99 06/05/19 08:08 06/05/19 10:26 06/05/19 08:08 06/05/19 08:08 06/05/19 10:00 General appearance: Present: no acute distress, well-nourished Results - Labs CBC & Chem 7: 06/04/19 06:43 06/04/19 06:43 Labs: Laboratory Last Values WBC 8.6 K/mm3 (4.5-11.0) 06/04/19 06:43 RBC 4.83 M/mm3 (3.65-5.03) 06/04/19 06:43 Hgb 14.1 gm/dl (11.8-15.2) 06/04/19 06:43 Hct 44.0 % (35.5-45.6) 06/04/19 06:43 MCV 91 fl (84-94) 06/04/19 06:43 MCH 29 pg (28-32) 06/04/19 06:43 MCHC 32 % (32-34) 06/04/19 06:43 RDW 15.3 % (13.2-15.2) H 06/04/19 06:43 Plt Count 220 K/mm3 (140-440) 06/04/19 06:43 Lymph % (Auto) 18.1 % (13.4-35.0) 06/04/19 06:43 [place] % (Auto) 9.8 % (0.0-7.3) H 06/04/19 06:43 Eos % (Auto) 0.9 % (0.0-4.3) 06/04/19 06:43 Baso % (Auto) 0.3 % (0.0-1.8) 06/04/19 06:43 Lymph # 1.6 K/mm3 (1.2-5.4) 06/04/19 06:43 [place] # 0.8 K/mm3 (0.0-0.8) 06/04/19 06:43 Eos # 0.1 K/mm3 (0.0-0.4) 06/04/19 06:43 Baso # 0.0 K/mm3 (0.0-0.1) 06/04/19 06:43 Seg Neutrophils % 70.9 % (40.0-70.0) H 06/04/19 06:43 Seg Neutrophils # 6.1 K/mm3 (1.8-7.7) 06/04/19 06:43 PT 14.6 Sec. (12.2-14.9) 06/01/19 10:51 INR 1.17 (0.87-1.13) H 06/01/19 10:51 APTT 26.9 Sec. (24.2-36.6) 06/01/19 10:51 Heparin Anti-Xa Level 0.22 U.I./ml (0.3-0.7) L 06/02/19 07:51 Sodium 147 mmol/L (137-145) H 06/04/19 06:43 Potassium 3.6 mmol/L (3.6-5.0) 06/04/19 06:43 Chloride 101.8 mmol/L (98-107) 06/04/19 06:43 Carbon Dioxide 31 mmol/L (22-30) H 06/04/19 06:43 Anion Gap 18 mmol/L 06/04/19 06:43 BUN 20 mg/dL (9-20) 06/04/19 06:43 Creatinine 1.2 mg/dL (0.8-1.5) 06/04/19 06:43 Estimated GFR > 60 ml/min 06/04/19 06:43 BUN/Creatinine Ratio 17 % 06/04/19 06:43 Glucose 120 mg/dL (75-100) H 06/04/19 06:43 POC Glucose 120 (70-105) H 06/01/19 13:01 Calcium 8.7 mg/dL (8.4-10.2) 06/04/19 06:43 Total Bilirubin 0.40 mg/dL (0.1-1.2) 06/04/19 06:43 AST 29 units/L (5-40) 06/04/19 06:43 ALT 96 units/L (7-56) H 06/04/19 06:43 Alkaline Phosphatase 56 units/L (35-129) 06/04/19 06:43 Ammonia 41.0 umol/L (25-60) 06/01/19 09:42 Troponin T 0.033 ng/mL (0.00-0.029) H 06/02/19 07:51 NT-Pro-B Natriuret Pep 5194 pg/mL (0-900) H 06/01/19 09:38 Total Protein 6.7 g/dL (6.3-8.2) 06/04/19 06:43 Albumin 3.6 g/dL (3.9-5) L 06/04/19 06:43 Albumin/Globulin Ratio 1.2 % 06/04/19 06:43 Triglycerides 165 mg/dL (2-149) H 06/01/19 09:38 Cholesterol 135 mg/dL (50-199) 06/01/19 09:38 LDL Cholesterol Direct 78 mg/dL (50-130) 06/01/19 09:38 HDL Cholesterol 27 mg/dL (40-59) L 06/01/19 09:38 Cholesterol/HDL Ratio 5.00 % 06/01/19 09:38 TSH 2.340 mlU/mL (0.270-4.200) 06/01/19 09:42 Urine Opiates Screen Presumptive negative 06/01/19 12:16 Urine Methadone Screen Presumptive negative 06/01/19 12:16 Ur Barbiturates Screen Presumptive negative 06/01/19 12:16 Ur Phencyclidine Scrn Presumptive negative 06/01/19 12:16 Ur Amphetamines Screen Presumptive negative 06/01/19 12:16 U Benzodiazepines Scrn Presumptive negative 06/01/19 12:16 Urine Cocaine Screen Presumptive negative 06/01/19 12:16 U Marijuana (THC) Screen Presumptive negative 06/01/19 12:16 Drugs of Abuse Note Disclamer 06/01/19 12:16 Active Medications - Current Medications Current Medications: Generic Name Dose Route Start Last Admin Trade Name Freq PRN Reason Stop Dose Admin Albuterol 2.5 mg 06/01/19 11:24 Proventil IH Q4HRT PRN Shortness Of Breath Amiodarone HCl 200 mg 06/03/19 22:00 06/05/19 09:12 Cordarone PO 200 mg BID TASHI Administration Apixaban 5 mg 06/02/19 22:00 06/05/19 09:11 Eliquis PO 5 mg Q12HR TASHI Administration Protocol Digoxin 0.125 mg 06/03/19 17:00 06/04/19 17:55 Lanoxin IV 0.125 mg Q24H TASHI Administration Furosemide 40 mg 06/02/19 06:00 06/05/19 06:39 Lasix IV 40 mg 0600,1800 TASHI Administration Milrinone Lactate/Dextrose 20 mg in 100 mls @ 14.693 mls/hr 06/02/19 14:00 06/05/19 04:15 Milrinone-D5w 20 Mg/100 Ml IV 06/05/19 13:59 0.375 mcg/kg/min TITR TASHI 14.693 mls/hr Administration 0.375 MCG/KG/MIN Losartan Potassium 50 mg 06/03/19 10:00 06/05/19 09:10 Cozaar PO 50 mg QDAY TASHI Administration Metoprolol Tartrate 25 mg 06/01/19 12:00 06/05/19 09:10 Lopressor PO 25 mg BID TASHI Administration Metoprolol Tartrate 5 mg 06/02/19 12:54 06/04/19 08:39 Lopressor IV 5 mg Q4HR PRN Administration HR >130 Spironolactone 25 mg 06/02/19 10:00 06/05/19 09:10 Aldactone PO 25 mg QDAY TASHI Administration Nutrition/Malnutrition Assess - Dietary Evaluation Nutrition/Malnutrition Findings: Nutrition Notes Start: 06/02/19 12:48 Freq: Status: Active Protocol: Document 06/02/19 12:48 LM (Rec: 06/02/19 12:53 LM [id number]) Nutrition Notes Need for Assessment generated from: fsr Initial or Follow up Brief Note Current Diagnosis Hypertension,Heart Failure, Hyperlipidemia Current Diet Cardiac diet Weight Status Obese Subjective/Other Information RN screen for skin risk. Pb score of 19 with no skin breakdown. Pt stated he had good appetite at home and reported eating sandwiches and fast food. Pt stated he has leg swelling. Pt stated he ate 100% of breakfast and wanted diet education on foods he should be eating. #1 Nutrition Diagnosis Food and nutrition-related knowledge deficit Etiology No prior hypertension diet education As Evidenced by Signs and Symptoms pt requesting hypertension diet education, leg swelling Nutrition Intervention Teaching Recipient Patient Learning Readiness Good Teaching Methods Discussion,Handout Response to Teaching Verbalize understanding Education Handouts Provided Hypertension Nutrition Therapy Barriers to Learning No Barriers RD phone number provided Yes Patient aware of follow up options Yes Revisit per MD consult or patient Sign Off request:
[2019-06-05] MEDS: LANOXIN IV SCH (18:01)
[2019-06-06] MEDS: LASIX IV SCH ×2 (05:09→17:12)
--- NOTE | 2019-06-06 09:05 | Progress Note ---
Assessment and Plan Atrial fibrillation, new onset on IV digoxin, amiodarone and oral metoprolol initiated on eliquis Acute systolic heart failure History of NICMP EF 20-25% by echo 11/2018 no ischemia by MPI 11/2018 Hypertension Plan for [place] guided cardioversion today for persistence of his new onset atrial fibrillation. Subjective Date of service: 06/06/19 Principal diagnosis: acute on chronic systolic heart failure, NICMP, paroxysmal atrial fib, Interval history: Afib persists on telemetry. Objective Vital Signs Temp Pulse Pulse Resp BP BP Pulse Ox 06/06/19 08:41 98.5 F 109 H 11 L 128/102 95 06/06/19 08:33 94 06/06/19 07:44 99 H 06/06/19 07:42 118 H 18 06/06/19 06:07 138/104 06/06/19 05:05 96 H 06/06/19 05:03 98.8 F 56 L 22 141/113 99 06/06/19 00:00 98 H 06/05/19 23:54 97.6 F 06/05/19 23:53 35 L 20 144/96 96 06/05/19 22:00 94 H 06/05/19 21:00 118 H 18 06/05/19 19:50 98.6 F 06/05/19 19:48 56 L 18 123/83 93 06/05/19 16:37 98.1 F 66 18 115/84 96 06/05/19 12:08 98.6 F 56 L 20 118/76 94 06/05/19 10:26 113 H 06/05/19 10:00 99 - Physical Examination General: No Apparent Distress HEENT: Positive: PERRL Neck: Positive: trachea midline Cardiac: Positive: irregularly irregular Lungs: Positive: Decreased Breath Sounds Neuro: Positive: Grossly Intact Extremities: Present: edema
[2019-06-06] MEDS ORDERED: NACL 0.9% 500 ML 500 ML IV SCH (10:00)
[2019-06-06] MEDS ORDERED: HURRICAINE ONE 20% TOPICAL SPRAY MM NR (10:00)
[2019-06-06] MEDS ORDERED: AMIDATE IV ONE (11:08)
--- NOTE | 2019-06-06 11:24 | Anesthesia Day of Surgery ---
Anesthesia Day of Surgery - Day of Surgery Patient Examined: Yes Patient H&P Reviewed: Yes Patient is NPO: Yes
--- NOTE | 2019-06-06 11:24 | Anesthesia Consultation ---
Anesthesia Consult and Med Hx Date of service: 06/06/19 - Airway Anesthetic Teeth Evaluation: Poor, Partials ROM Head & Neck: Adequate Mental/Hyoid Distance: Inadequate Mallampati Class: Class III Intubation Access Assessment: Possibly Difficult - Pulmonary Exam CTA: Yes - Cardiac Exam Cardiac Exam: No Murmur (irregular rhythm) - Pre-Operative Health Status ASA Pre-Surgery Classification: ASA4 Proposed Anesthetic Plan: MAC - Pulmonary Hx Smoking: No Hx Asthma: Yes SOB: Yes (2/2 new onset a-fib with RVR) Home Oxygen Therapy: Yes (2L on some nights) Hx Pneumonia: No - Cardiovascular System Hx Hypertension: Yes Hx Coronary Artery Disease: No (non-ischemic cardiomyopathy EF 25%; completed 72hr milrinone gtt) Hx Heart Attack/AMI: Yes (Possibly 1yr ago; patient unsure of details. No stents or CABG.) Hx Percutaneous Transluminal Coronary Angioplasty (PTCA): No Hx Cardia Arrhythmia: Yes (new onset a-sib with RVR) Hx Pacemaker: No - Central Nervous System CVA: No - Endocrine Hx Renal Disease: No Hx Liver Disease: No Hx Non-Insulin Dependent Diabetes: Yes (A1c 6.2 this admission) Hx Thyroid Disease: No - Other Systems Hx Obesity: Yes
[2019-06-06] MEDS: LOPRESSOR PO SCH (12:35)
--- NOTE | 2019-06-06 12:42 | Progress Note ---
Assessment and Plan Assessment and plan: 59-year-old man with history of heart disease presents to the hospital with swelling of his legs and shortness of breath. He was apparently confused in the ER. CHF exacerbation, EF 20%, nonischemic cardiomyopathy with negative stress test in November 2018 Continue diuretics, optimize medications Atrial fibrillation, new onset , Optimize rate control medications per cardiology, on eliquis for stroke prophylaxis sp successful [place] cardioversion 06/06, Probable JONATHON Pulmonology consult appreciated, outpatient follow-up for sleep study dvt ppx full anticoagulated Afib with RVR - Now rate controlled htn urgency optimized Acute metabolic encephalopathy Resolved, CTH neg HNyperglycemia from prediabetes Obatian A1c. Was 6.2% as of 12/06 -Diet control Cosistent CHO diet H/o hepatic hemangiomas stable supportive care Disposition, plan for discharge tomorrow if patient continues to improve History Interval history: No further episodes of confusion Review of systems Constitutional: No fevers, no malaise, no joint pains CVS: No chest pain, orthopnea and pedal edema are improving GI: No abdominal pain, no diarrhea, no vomiting, no constipation Respiratory: no wheezing, no coughing Hospitalist Physical - Physical exam Narrative exam: General.: Appears well, no distress, nontoxic HEENT: Moist mucous membranes, extraocular muscles intact, no lymphadenopathy Neck: supple Cardiac: S1-S2 heard Lungs: Bibasilar crackles Abdomen: soft , nontender, nondistended, bowel sounds positive Extremities: Into full improvement of bipedal edema Skin: no rash or lesions Neurologic: no gross focal deficits Psych: calm, and cooperative - Constitutional Vitals: Temp Pulse Resp BP Pulse Ox 98.5 F 78 16 159/70 99 06/06/19 08:41 06/06/19 12:23 06/06/19 12:23 06/06/19 12:23 06/06/19 12:23 General appearance: Present: no acute distress, well-nourished Results - Labs CBC & Chem 7: 06/04/19 06:43 06/04/19 06:43 Labs: Laboratory Last Values WBC 8.6 K/mm3 (4.5-11.0) 06/04/19 06:43 RBC 4.83 M/mm3 (3.65-5.03) 06/04/19 06:43 Hgb 14.1 gm/dl (11.8-15.2) 06/04/19 06:43 Hct 44.0 % (35.5-45.6) 06/04/19 06:43 MCV 91 fl (84-94) 06/04/19 06:43 MCH 29 pg (28-32) 06/04/19 06:43 MCHC 32 % (32-34) 06/04/19 06:43 RDW 15.3 % (13.2-15.2) H 06/04/19 06:43 Plt Count 220 K/mm3 (140-440) 06/04/19 06:43 Lymph % (Auto) 18.1 % (13.4-35.0) 06/04/19 06:43 Gates % (Auto) 9.8 % (0.0-7.3) H 06/04/19 06:43 Eos % (Auto) 0.9 % (0.0-4.3) 06/04/19 06:43 Baso % (Auto) 0.3 % (0.0-1.8) 06/04/19 06:43 Lymph # 1.6 K/mm3 (1.2-5.4) 06/04/19 06:43 Gates # 0.8 K/mm3 (0.0-0.8) 06/04/19 06:43 Eos # 0.1 K/mm3 (0.0-0.4) 06/04/19 06:43 Baso # 0.0 K/mm3 (0.0-0.1) 06/04/19 06:43 Seg Neutrophils % 70.9 % (40.0-70.0) H 06/04/19 06:43 Seg Neutrophils # 6.1 K/mm3 (1.8-7.7) 06/04/19 06:43 PT 14.6 Sec. (12.2-14.9) 06/01/19 10:51 INR 1.17 (0.87-1.13) H 06/01/19 10:51 APTT 26.9 Sec. (24.2-36.6) 06/01/19 10:51 Heparin Anti-Xa Level 0.22 U.I./ml (0.3-0.7) L 06/02/19 07:51 Sodium 147 mmol/L (137-145) H 06/04/19 06:43 Potassium 3.6 mmol/L (3.6-5.0) 06/04/19 06:43 Chloride 101.8 mmol/L (98-107) 06/04/19 06:43 Carbon Dioxide 31 mmol/L (22-30) H 06/04/19 06:43 Anion Gap 18 mmol/L 06/04/19 06:43 BUN 20 mg/dL (9-20) 06/04/19 06:43 Creatinine 1.2 mg/dL (0.8-1.5) 06/04/19 06:43 Estimated GFR > 60 ml/min 06/04/19 06:43 BUN/Creatinine Ratio 17 % 06/04/19 06:43 Glucose 120 mg/dL (75-100) H 06/04/19 06:43 POC Glucose 120 (70-105) H 06/01/19 13:01 Calcium 8.7 mg/dL (8.4-10.2) 06/04/19 06:43 Total Bilirubin 0.40 mg/dL (0.1-1.2) 06/04/19 06:43 AST 29 units/L (5-40) 06/04/19 06:43 ALT 96 units/L (7-56) H 06/04/19 06:43 Alkaline Phosphatase 56 units/L (35-129) 06/04/19 06:43 Ammonia 41.0 umol/L (25-60) 06/01/19 09:42 Troponin T 0.033 ng/mL (0.00-0.029) H 06/02/19 07:51 NT-Pro-B Natriuret Pep 5194 pg/mL (0-900) H 06/01/19 09:38 Total Protein 6.7 g/dL (6.3-8.2) 06/04/19 06:43 Albumin 3.6 g/dL (3.9-5) L 06/04/19 06:43 Albumin/Globulin Ratio 1.2 % 06/04/19 06:43 Triglycerides 165 mg/dL (2-149) H 06/01/19 09:38 Cholesterol 135 mg/dL (50-199) 06/01/19 09:38 LDL Cholesterol Direct 78 mg/dL (50-130) 06/01/19 09:38 HDL Cholesterol 27 mg/dL (40-59) L 06/01/19 09:38 Cholesterol/HDL Ratio 5.00 % 06/01/19 09:38 TSH 2.340 mlU/mL (0.270-4.200) 06/01/19 09:42 Urine Opiates Screen Presumptive negative 06/01/19 12:16 Urine Methadone Screen Presumptive negative 06/01/19 12:16 Ur Barbiturates Screen Presumptive negative 06/01/19 12:16 Ur Phencyclidine Scrn Presumptive negative 06/01/19 12:16 Ur Amphetamines Screen Presumptive negative 06/01/19 12:16 U Benzodiazepines Scrn Presumptive negative 06/01/19 12:16 Urine Cocaine Screen Presumptive negative 06/01/19 12:16 U Marijuana (THC) Screen Presumptive negative 06/01/19 12:16 Drugs of Abuse Note Disclamer 06/01/19 12:16 Active Medications - Current Medications Current Medications: Generic Name Dose Route Start Last Admin Trade Name Freq PRN Reason Stop Dose Admin Albuterol 2.5 mg 06/01/19 11:24 Proventil IH Q4HRT PRN Shortness Of Breath Amiodarone HCl 200 mg 06/03/19 22:00 06/05/19 21:15 Cordarone PO 200 mg BID TASHI Administration Apixaban 5 mg 06/02/19 22:00 06/05/19 21:15 Eliquis PO 5 mg Q12HR TASHI Administration Protocol Benzocaine 3 spray 06/06/19 10:00 06/06/19 11:20 Hurricaine One 20% Topical [place] MM 06/06/19 18:00 3 spray PREOP NR Administration Digoxin 0.125 mg 06/06/19 17:00 Lanoxin PO DAILY@1700 TASHI Furosemide 40 mg 06/02/19 06:00 06/06/19 05:09 Lasix IV 40 mg 0600,1800 TASHI Administration Sodium Chloride 500 mls @ 50 mls/hr 06/06/19 10:00 Nacl 0.9% 500 Ml IV 06/06/19 21:00 DIRECT TASHI Losartan Potassium 100 mg 06/07/19 10:00 Cozaar PO QDAY TASHI Losartan Potassium 50 mg 06/06/19 13:37 Cozaar PO 06/06/19 13:38 ONCE ONE Metoprolol Succinate 50 mg 06/07/19 10:00 Toprol Xl PO QDAY TASHI Metoprolol Tartrate 5 mg 06/02/19 12:54 06/04/19 08:39 Lopressor IV 5 mg Q4HR PRN Administration HR >130 Spironolactone 25 mg 06/02/19 10:00 06/05/19 09:10 Aldactone PO 25 mg QDAY TASHI Administration Nutrition/Malnutrition Assess - Dietary Evaluation Nutrition/Malnutrition Findings: Nutrition Notes Start: 06/02/19 12:48 Freq: Status: Active Protocol: Document 06/06/19 11:15 RM (Rec: 06/06/19 11:16 RM [id number]) Nutrition Notes Need for Assessment generated from: LOS Initial or Follow up Brief Note Height 6 ft Weight 128.5 kg [place] Body Weight (kg) 80.90 BMI 38.4 Subjective/Other Information Screened for LOS. PO intake 93% X 4 days. Nutrition Intervention Revisit per MD consult or patient Sign Off request:
--- NOTE | 2019-06-06 12:58 | Post Anesthesia Evaluation ---
- Post Anesthesia Evaluation Patient Participated: Yes Airway Patent: Yes Stable Respiratory Function: Yes Nausea/Vomiting: No Temp > 96.8F: Yes Pain Manageable: Yes Adequeate Hydration: Yes Anesthesia Complications: No
[2019-06-06] MEDS ORDERED: COZAAR PO ONE (13:37)
[2019-06-06] MEDS: COZAAR PO SCH (15:54)
[2019-06-06] MEDS: ALDACTONE PO SCH (16:04)
[2019-06-06] MEDS: ELIQUIS PO SCH ×2 (16:04→21:30)
[2019-06-06] MEDS: CORDARONE PO SCH ×2 (16:04→21:30)
[2019-06-06] MEDS ORDERED: LANOXIN PO SCH (17:00)
--- NOTE | 2019-06-06 20:18 | Procedure Note ---
CARDIOVERSION REPORT INDICATIONS: Atrial fibrillation with RVR. ORDERING PHYSICIAN: Keara Chen MD DESCRIPTION OF PROCEDURE: After obtaining written consent and after documenting the absence of left atrial appendage thrombus by transesophageal echocardiogram, the patient was deeply sedated with etomidate in the presence of anesthesia staff. A 200 joule synchronized shock was administered with successful cardioversion into normal sinus rhythm. IMPRESSION: Successful cardioversion from atrial fibrillation to normal sinus rhythm after a 200-joule synchronized shock. No complications. RECOMMENDATIONS: Continue current management. JOB# [id number] VISHAL/CONSUELO
[2019-06-07] MEDS: LASIX IV SCH (05:57)
[2019-06-07 08:29] VITALS: BP 152/91
--- NOTE | 2019-06-07 08:55 | Discharge Summary ---
Providers - Providers Date of Admission: 06/01/19 10:40 Attending physician: GERARD SPENCER MD 06/01/19 11:46 Consult to Physician [CONS] Stat Comment: Consulting Provider: BETHANIE ROTH Physician Instructions: Reason For Exam: ICU admission 06/01/19 19:58 Consult to Physician [CONS] Routine Comment: Consulting Provider: KALPESH ELIZABETH Physician Instructions: Reason For Exam: afib Primary care physician: CUSTOM HARVESTER Hospitalization Condition: Stable Hospital course: 59-year-old man with history of heart disease presents to the hospital with swelling of his legs and shortness of breath. He was apparently confused in the ER. CHF exacerbation, EF 20%, nonischemic cardiomyopathy with negative stress test in November 2018 Continue diuretics, optimized medications Atrial fibrillation, new onset , Optimize rate control medications per cardiology, on eliquis for stroke prophylaxis sp successful [place] cardioversion 06/06, was put on rate control and rhythm control medications prior to discharge Probable JONATHON Pulmonology consult appreciated, outpatient follow-up for sleep study dvt ppx full anticoagulated Afib with RVR - Now rate controlled htn urgency optimized Acute metabolic encephalopathy Resolved, CTH neg HNyperglycemia from prediabetes Obatian A1c. Was 6.2% as of 12/06 -Diet control Cosistent CHO diet H/o hepatic hemangiomas stable supportive care Disposition: - TO HOME OR SELFCARE Time spent for discharge: 33 mins Core Measure Documentation - Palliative Care Palliative Care/ Comfort Measures: Not Applicable - Core Measures Any of the following diagnoses?: heart failure - Heart Failure Discharge Requirements NILO/ARB for LVSD if EF <40%: Yes Beta jacquelyn at discharge: Yes Exam - Constitutional Vitals: Temp Pulse Resp BP Pulse Ox 98.1 F 84 18 152/91 96 06/07/19 08:28 06/07/19 08:28 06/07/19 08:28 06/07/19 08:28 06/07/19 08:28 General appearance: Present: no acute distress, well-nourished - EENT Eyes: Present: PERRL ENT: hearing intact, clear oral mucosa - Neck Neck: Present: supple, normal ROM - Respiratory Respiratory effort: normal Respiratory: bilateral: CTA - Cardiovascular Heart Sounds: Present: S1 & S2. Absent: rub, click - Extremities Extremities: pulses symmetrical, No edema Peripheral Pulses: within normal limits - Abdominal General gastrointestinal: Present: soft, non-tender, non-distended, normal bowel sounds Male genitourinary: Present: normal - Integumentary Integumentary: Present: clear, warm, dry - Musculoskeletal Musculoskeletal: gait normal, strength equal bilaterally - Psychiatric Psychiatric: appropriate mood/affect, intact judgment & insight - Neurologic Neurologic: CNII-XII intact, moves all extremities Plan Follow up with: ANNETTE MAY MD [Staff Physician] - 7 Days KEVIN AMIN MD [Staff Physician] - 7 Days PRIMARY CARE, [Primary Care Provider] - 3-5 Days Prescriptions: Spironolactone [Aldactone] 25 mg PO QDAY #30 tablet Bumetanide [Bumex 1 mg tab] 1 mg PO 0600,1800 #60 tablet Amiodarone [Cordarone 200 MG TAB] 200 mg PO BID #60 tablet Losartan [Cozaar] 100 mg PO QDAY #60 tablet Apixaban [Eliquis] 5 mg PO Q12HR #60 tablet Digoxin [Lanoxin] 0.125 mg PO DAILY@1700 #30 tablet Metoprolol Xl [Metoprolol SUCCINATE ER TAB] 50 mg PO QDAY #30 tablet
[2019-06-07] MEDS: ALDACTONE PO SCH (09:25)
[2019-06-07] MEDS: CORDARONE PO SCH (09:26)
[2019-06-07] MEDS: ELIQUIS PO SCH (09:26)
[2019-06-07] MEDS ORDERED: COZAAR PO SCH (10:00)
[2019-06-07] MEDS ORDERED: TOPROL XL PO SCH (10:00)
--- NOTE | 2019-06-07 10:28 | Progress Note ---
Assessment and Plan 1. Paroxysmal atrial fibrillation status post cardioversion to sinus rhythm 2. Dilated nonischemic cardiomyopathy left ventricular ejection fraction 20-25% 3. Essential hypertension 4. Obesity Plan Cardiac-vega stable continue present medication discharged home today. Subjective Date of service: 06/07/19 Principal diagnosis: acute on chronic systolic heart failure, NICMP, paroxysmal atrial fib, Interval history: No cardiac symptoms. Objective Vital Signs Temp Pulse Pulse Pulse Resp Resp Resp 06/07/19 10:07 06/07/19 09:26 84 06/07/19 09:25 84 06/07/19 08:28 98.1 F 84 18 06/07/19 03:32 97.9 F 84 18 06/06/19 22:31 97.7 F 86 18 06/06/19 21:37 20 06/06/19 21:30 18 06/06/19 20:26 87 06/06/19 19:20 97.4 F L 87 18 06/06/19 16:56 98.6 F 83 20 06/06/19 12:45 82 06/06/19 12:23 78 06/06/19 12:00 79 06/06/19 11:45 78 06/06/19 11:42 83 06/06/19 11:30 98 H 20 06/06/19 11:28 165 H 24 06/06/19 11:25 126 H 16 06/06/19 11:17 138 H 23 Resp BP BP BP Pulse Ox Pulse Ox Pulse Ox 06/07/19 10:07 99 06/07/19 09:26 152/91 06/07/19 09:25 152/91 06/07/19 08:28 152/91 96 06/07/19 03:32 164/104 94 06/06/19 22:31 149/82 92 06/06/19 21:37 06/06/19 21:30 98 06/06/19 20:26 06/06/19 19:20 130/81 96 06/06/19 16:56 177/94 94 06/06/19 12:45 20 167/83 99 06/06/19 12:23 16 159/70 99 06/06/19 12:00 20 154/85 99 06/06/19 11:45 18 144/82 99 06/06/19 11:42 20 148/85 99 06/06/19 11:30 218/139 100 06/06/19 11:28 192/142 06/06/19 11:25 162/118 100 06/06/19 11:17 164/110 100 - Physical Examination General: No Apparent Distress HEENT: Positive: PERRL Neck: Positive: trachea midline Cardiac: Positive: Regular Rate, S1/S2, S3, S4, PMI, Dilated, Laterally Displaced Lungs: Positive: clear to auscultation, No Wheeze, Rales, Rhonchi Neuro: Positive: Grossly Intact, No Lateralizing Findings Abdomen: Positive: Unremarkable, Soft Extremities: Present: edema
== END 2019-06-07 13:41 | disposition home or self-care (01) | DRG 291 ==
LOC: ED 08:58 → 4A 10:40 → CC1 11:14 → 4A 06-03 21:00
PROVIDERS: ADMIT Family Medicine; ATTEND Internal Medicine
PROC: 5A2204Z Restoration of Cardiac Rhythm, Single (ICD-10-PCS; principal; 2019-06-06)
DX: I11.0 Hypertensive heart disease with heart failure (principal); G93.41 Metabolic encephalopathy; I48.0 Paroxysmal atrial fibrillation; I50.43 Acute on chronic combined systolic (congestive) and diastolic (congestive) heart failure; I42.0 Dilated cardiomyopathy; E66.9 Obesity, unspecified; R73.9 Hyperglycemia, unspecified; I16.0 Hypertensive urgency; G47.33 Obstructive sleep apnea (adult) (pediatric); R73.03 Prediabetes; I25.2 Old myocardial infarction; Z82.49 Family history of ischemic heart disease and other diseases of the circulatory system; Z95.5 Presence of coronary angioplasty implant and graft; Z79.51 Long term (current) use of inhaled steroids; Z79.899 Other long term (current) drug therapy; Z79.82 Long term (current) use of aspirin; Z68.37 Body mass index [BMI] 37.0-37.9, adult; Z99.81 Dependence on supplemental oxygen
CPT/HCPCS: 36415; 70450; 71045; 80048; 80053; 80061; 80307; 82140; 82962; 83880; 84443; 84484; 85025; 85520; 85610; 85730; 93005; 93010; 93306; 93312; 93320; 93325; 94640; 94760; 96374; 96375; G0378; J0282; J1160; J1644; J1940; J2260; J7040